=== PATIENT | male | born 1975 | race Caucasian/White ===

== ENCOUNTER 2017-10-23 21:30 | Emergency (ER) | payer OTHER, BC ==
[2017-10-23] MEDS ORDERED: Ketorolac 60 MG/2 ML SDV IM ONE (21:36)
[2017-10-23] MEDS ORDERED: Silver Sulfadiazine 1% Crm 50 GM Tube TOP ONE (21:36)
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
== END 2017-10-23 22:00 | disposition home or self-care (01) ==
LOC: MW.ED 21:30
DX: T24.002A Burn of unspecified degree of unspecified site of left lower limb, except ankle and foot, initial encounter (principal)
CPT/HCPCS: 16020; 96372; 99283; A9270; J1885

== ENCOUNTER 2019-02-17 09:44 | Emergency (ER) | payer BC, OTHER ==
[2019-02-17] MEDS ORDERED: Diphtheria,Pertussis(Acell),Tetanus Vaccine 0.5 ML Syringe IM ONE (10:18)
--- NOTE | 2019-02-17 10:22 | EDM.PDOC ---
ED HPI GENERAL MEDICAL PROBLEM - General Chief Complaint: Skin Complaint Stated Complaint: INFECTION ON ARM Time Seen by Provider: 02/17/19 10:07 Source of Information: Reports: Patient History Limitations: Reports: No Limitations - History of Present Illness INITIAL COMMENTS - FREE TEXT/NARRATIVE: HISTORY AND PHYSICAL: History of present illness: Patient is a 44-year-old male who presents to the emergency room with multiple small sores to his upper extremities and shoulders bilaterally from his cat. Patient states that he has an aggressive cat that scratches him frequently. He has not so much concerned of the smaller ones, rather an area to his right forearm that is red and slightly painful to touch. He denies any drug abuse or IV injections. Patient denies any fever, chills, headache, change in vision, syncope or near syncope. Denies any chest pain, back pain, shortness of breath or cough. Denies any GI or symptoms. Patient has been eating and drinking appropriately. Review of systems: As per history of present illness and below otherwise all systems reviewed and negative. Past medical history: As per history of present illness and as reviewed below otherwise noncontributory. Surgical history: As per history of present illness and as reviewed below otherwise noncontributory. Social history: See social history for further information Family history: As per history of present illness and as reviewed below otherwise noncontributory. Physical exam: General: Well-developed and well-nourished 44-year-old male. Alert and oriented. Nontoxic appearing and in no acute distress. HEENT: Atraumatic, normocephalic, pupils equal and reactive bilaterally, negative for conjunctival pallor or scleral icterus, mucous membranes moist, trachea midline. No drooling or trismus noted. No meningeal signs. No hot potato voice noted. Lungs: Clear to auscultation, breath sounds equal bilaterally, chest nontender. Heart: S1S2, regular rate and rhythm without overt murmur Abdomen: Soft, nondistended, nontender. Skin: Multiple small areas that are red, superficial scratches noted to his forearms and upper back. Palmar sized area of erythema noted to the right proximal forearm does not reach into the antecubital space at this time. Remaining skin is intact, warm, dry. No lesions or rashes noted. Extremities: Atraumatic, moves all extremities per self without difficulty or deficits. Neurovascular unremarkable. Neuro: Awake, alert, oriented. Cranial nerves II through XII unremarkable. Cerebellum unremarkable. Motor and sensory unremarkable throughout. Exam nonfocal. Notes: Discussed with patient the need for close monitoring of the area on his forearm which was outlined with a surgical marker. We will try outpatient therapy. He is agreeable that if the area does not improve or doesn't fact worsen he will return to the emergency room for reevaluation. He is aware that if the area does not improve he may need admission. At this time were agreeable that he can attempt outpatient oral antibiotics. Supportive care measures were reviewed and discussed. Voices understanding and is agreeable to plan of care. Denies any further questions or concerns at this time. Diagnostics: CBC Therapeutics: Tdap Prescription: Augmentin Impression: Cellulitis Cat Scratch Plan: 1. Gently wash the areas 1-2 times daily with mild soap and water. Keep clean and dry. Continue to monitor for signs of improvement. As we discussed Kimberly close attention to the right elbow, if this area gets outside of the marker outlining need to return for reevaluation. 2. Take the antibiotic as prescribed. He may alternate Tylenol and ibuprofen for pain management. 3. Follow-up with your primary caregiver as we discussed. Return to the ED as needed and as discussed. Definitive disposition and diagnosis as appropriate pending reevaluation and review of above. - Related Data Allergies Allergy/AdvReac Type Severity Reaction Status Date / Time No Known Allergies Allergy Verified 10/23/17 21:36 Home Meds: Home Meds Albuterol Sulfate [Proair Hfa] 2 puff INH ASDIRECTED PRN 10/23/17 [History] Melatonin 3 mg PO BEDTIME 10/23/17 [History] Amoxicillin/Clavulanate K [Augmentin 875-125 MG] 1 tab PO BID 10 Days #20 tablet 02/17/19 [Rx] Budesonide/Formoterol [Symbicort 160-4.5 MCG] 02/17/19 [History] Fluticasone/Salmeterol [Advair 100-50] 02/17/19 [History] Past Medical History Respiratory History: Reports: COPD, Other (See Below) Other Respiratory History: on inhaler Musculoskeletal History: Reports: Back Pain, Chronic Other Musculoskeletal History: bulging discs per PT. Sciatic issues Psychiatric History: Reports: PTSD - Infectious Disease History Infectious Disease History: Reports: Chicken Pox - Past Surgical History Respiratory Surgical History: Reports: None Social & Family History - Family History Family Medical History: Noncontributory - Tobacco Use Smoking Status *Q: Former Smoker Used Tobacco, but Quit: Yes Month/Year Tobacco Last Used: 11/2018 - Caffeine Use Caffeine Use: Reports: None - Alcohol Use Days Per Week of Alcohol Use: 7 Number of Drinks Per Day: 14 Total Drinks Per Week: 98 - Recreational Drug Use Recreational Drug Use: No ED ROS GENERAL - Review of Systems Review Of Systems: Comprehensive ROS is negative, except as noted in HPI. ED EXAM, SKIN/RASH Exam: See Below (See dictation) Course - Vital Signs Last Recorded V/S: Last Vital Signs Temp 98.1 F 02/17/19 09:49 Pulse 106 H 02/17/19 09:49 Resp 18 02/17/19 09:49 BP 117/79 02/17/19 09:49 Pulse Ox 97 02/17/19 09:49 - Orders/Labs/Meds Orders: Active Orders 24 hr Category Date Time Status Vaccines to be Administered [RC] PER UNIT ROUTINE Care 02/17/19 10:18 Active Labs: Laboratory Tests 02/17/19 Range/Units 10:37 WBC 10.09 (4.0-11.0) K/uL RBC 4.08 L (4.50-5.90) M/uL Hgb 12.9 L (13.0-17.0) g/dL Hct 37.7 L (38.0-50.0) % MCV 92.4 (80.0-98.0) fL MCH 31.6 (27.0-32.0) pg MCHC 34.2 (31.0-37.0) g/dL RDW Std Deviation 47.9 (28.0-62.0) fl RDW Coeff of Monster 14 (11.0-15.0) % Plt Count 90 L (150-400) K/uL MPV 10.60 (7.40-12.00) fL Neut % (Auto) 75.3 (48.0-80.0) % Lymph % (Auto) 12.3 L (16.0-40.0) % [place] % (Auto) 11.2 (0.0-15.0) % Eos % (Auto) 0.9 (0.0-7.0) % Baso % (Auto) 0.3 (0.0-1.5) % Neut # (Auto) 7.6 H (1.4-5.7) K/uL Lymph # (Auto) 1.2 (0.6-2.4) K/uL [place] # (Auto) 1.1 H (0.0-0.8) K/uL Eos # (Auto) 0.1 (0.0-0.7) K/uL Baso # (Auto) 0.0 (0.0-0.1) K/uL Nucleated RBC % 0.0 /100WBC Nucleated RBCs # 0 K/uL Meds: Medications Discontinued Medications Generic Name Dose Route Start Last Admin Trade Name Freq PRN Reason Stop Dose Admin Diphtheria/Tetanus/Acell Pertussis 0.5 ml 02/17/19 10:18 02/17/19 10:38 Adacel IM 02/17/19 10:19 0.5 ml .ONCE ONE Administration Departure - Departure Time of Disposition: 11:28 Disposition: Home, Self-Care 01 Clinical Impression: Cat scratch Cellulitis Qualifiers: Site of cellulitis: extremity Site of cellulitis of extremity: upper extremity Laterality: right Qualified Code(s): L03.113 - Cellulitis of right upper limb - Discharge Information Prescriptions: Amoxicillin/Clavulanate K [Augmentin 875-125 MG] 1 tab PO BID 10 Days #20 tablet Instructions: Cat-Scratch Disease, Adult Referrals: Elinor Gonsalves NP [Primary Care Provider] - Forms: ED Department Discharge Additional Instructions: The following information is given to patients seen in the emergency department who are being discharged to home. This information is to outline your options for follow-up care. We provide all patients seen in our emergency department with a follow-up referral. The need for follow-up, as well as the timing and circumstances, are variable depending upon the specifics of your emergency department visit. If you don't have a primary care physician on staff, we will provide you with a referral. We always advise you to contact your personal physician following an emergency department visit to inform them of the circumstance of the visit and for follow-up with them and/or the need for any referrals to a consulting specialist. The emergency department will also refer you to a specialist when appropriate. This referral assures that you have the opportunity for follow-up care with a specialist. All of these measure are taken in an effort to provide you with optimal care, which includes your follow-up. Under all circumstances we always encourage you to contact your private physician who remains a resource for coordinating your care. When calling for follow-up care, please make the office aware that this follow-up is from your recent emergency room visit. If for any reason you are refused follow-up, please contact the [facility] Emergency Department at and asked to speak to the emergency department charge nurse. [facility] [address] [place] [address] [facility] [address] [place] [id number] 1. Gently wash the areas 1-2 times daily with mild soap and water. Keep clean and dry. Continue to monitor for signs of improvement. As we discussed pay close attention to the right elbow, if this area gets outside of the marker outlining in the next 24-36 hours you need to return for reevaluation. 2. Take the antibiotic as prescribed. He may alternate Tylenol and ibuprofen for pain management. 3. Follow-up with your primary caregiver as we discussed. Return to the ED as needed and as discussed. Sepsis Event Note - Evaluation Sepsis Screening Result: No Definite Risk - Focused Exam Vital Signs: Vital Signs Temp Pulse Resp BP Pulse Ox 02/17/19 09:49 98.1 F 106 H 18 117/79 97 Date Exam was Performed: 02/17/19 Time Exam was Performed: 11:22 - My Orders Last 24 Hours: My Active Orders 02/17/19 10:18 Vaccines to be Administered [RC] PER UNIT ROUTINE - Assessment/Plan Last 24 Hours: My Active Orders 02/17/19 10:18 Vaccines to be Administered [RC] PER UNIT ROUTINE
== END 2019-02-17 11:36 | disposition home or self-care (01) ==
LOC: MW.ED 09:44
DX: S40.811A Abrasion of right upper arm, initial encounter (principal); L03.113 Cellulitis of right upper limb; Z87.891 Personal history of nicotine dependence; Z23 Encounter for immunization; W55.03XA Scratched by cat, initial encounter
CPT/HCPCS: 36415; 85025; 90471; 90715; 99283

== ENCOUNTER 2019-09-07 13:35 | Emergency (ER) | payer OTHER ==
--- NOTE | 2019-09-07 13:55 | EDM.PDOC ---
ED [facility] GENERAL MEDICAL PROBLEM - General Chief Complaint: Genitourinary Problem Stated Complaint: BLEEDING FROM PENIS Time Seen by Provider: 09/07/19 13:39 - History of Present Illness INITIAL COMMENTS - FREE TEXT/NARRATIVE: HISTORY AND PHYSICAL: History of present illness: This 44-year-old male with a past medical history of liver cirrhosis, alcoholism, gastric ulcer and hypertension presents emergency department complaining of a small amount of blood running down his leg from his urethral meatus. He states that he is in a monogamous sexual relationship with his fiance who is accompanying him to the emergency department today but is not present for the exam. He states he does not have any dysuria, fevers, or other symptoms. He does appear slightly jaundiced. He is not sure the results of his last liver lab evaluation. He does not know how bad his liver cirrhosis. He continues to drink at least one 12 pack of beer a day. No testicular pain or swelling. States that he can reproduce some urethral drainage by milking the urethra. Review of systems: A 10-point review of systems, other than pertinent positives and negatives as stated per HPI, is otherwise negative. Past medical history: As per history of present illness and as reviewed below otherwise noncontributory. Surgical history: As per history of present illness and as reviewed below otherwise noncontributory. Social history: No reported history of drug or alcohol abuse. Family history: As per history of present illness and as reviewed below otherwise noncontributory. Physical exam: VITAL SIGNS: Reviewed. GENERAL: Mild jaundice, slight abdominal distention, does not appear to be in acute distress HEAD: No signs of head trauma. EYES: Pupils are equal. Extraocular motions intact. EARS: Hearing grossly intact. MOUTH: Oropharynx is normal. NECK: No adenopathy, no JVD. CHEST: Chest with clear breath sounds bilaterally. No wheezes, rales, or rhonchi. CARDIAC: Regular rate and rhythm. Normal S1 and S2, without murmurs, gallops, or rubs. VASCULAR: Peripheral pulses normal and equal in all extremities. ABDOMEN: Soft, without detectable tenderness. Mild distention without significant ascites. No rebound or guarding, and no masses palpated. MUSCULOSKELETAL: Good range of motion of all major joints. Extremities without clubbing, cyanosis or edema. NEUROLOGIC EXAM: Alert and oriented x 3. No focal sensory or motor deficits. Speech normal. Follows commands. PSYCHIATRIC: Mood normal. SKIN: No rash or lesions. Male exam: Nurse standby present. No urethral discharge, no external lesions, no hernia, no testicular swelling or tenderness Initial Differential Diagnosis & Plan: Gonorrhea /chlamydia, abnormal labs secondary to liver cirrhosis, urethritis from other causes I will obtain screening labs with CBC, complete metabolic panel, PTT, PT, INR, UA, and GC chlamydia. Definitive disposition and diagnosis as appropriate pending reevaluation and review of above. - Related Data Allergies Allergy/AdvReac Type Severity Reaction Status Date / Time No Known Allergies Allergy Verified 09/07/19 13:51 Home Meds: Home Meds Albuterol Sulfate [Proair Hfa] 2 puff INH ASDIRECTED PRN 10/23/17 [History] Melatonin 3 mg PO BEDTIME 10/23/17 [History] Budesonide/Formoterol [Symbicort 160-4.5 MCG] 1 puff INH ASDIRECTED 02/17/19 [History] Fluticasone/Salmeterol [Advair 100-50] 1 puff INH ASDIRECTED 02/17/19 [History] Doxycycline [Vibramycin] 100 mg PO BID 7 Days #14 tab 09/07/19 [Rx] cephALEXin [Keflex] 1,000 mg PO TID 7 Days #42 capsule 09/07/19 [Rx] Past Medical History Respiratory History: Reports: COPD, Other (See Below) Other Respiratory History: on inhaler Musculoskeletal History: Reports: Back Pain, Chronic Other Musculoskeletal History: bulging discs per PT. Sciatic issues Psychiatric History: Reports: PTSD - Infectious Disease History Infectious Disease History: Reports: Chicken Pox - Past Surgical History Respiratory Surgical History: Reports: None Social & Family History - Family History Family Medical History: Noncontributory - Caffeine Use Caffeine Use: Reports: None ED ROS GENERAL - Review of Systems Review Of Systems: See Below (see note) ED EXAM, GI/ABD - Physical Exam Exam: See Below (see note) ED ABDOMINAL/GI PROCEDURES - Ultrasound Ultrasound: Abnormal Pelvis Progress: Procedure: Limited Abdominal Ultrasound for evaluation of ascites Performed and interpreted by me; images recorded and archived Indication: Right upper quadrant/epigastric pain/flank pain Findings: -Bowel identified -Liver identified -Trace to moderate ascites Interpretation: Moderate to trace ascites Signed by Luis E Adkins M.D. Course - Vital Signs Last Recorded V/S: Last Vital Signs Temp 97.1 F 09/07/19 13:48 Pulse 98 09/07/19 13:48 Resp 16 09/07/19 13:48 BP 116/70 09/07/19 13:48 Pulse Ox 96 09/07/19 13:48 - Orders/Labs/Meds Orders: Active Orders 24 hr Category Date Time Status Pulse Oximetry [RC] ASDIRECTED Care 09/07/19 13:47 Active CHLAMYDIA AND GONORRHEA BY TMA Stat Lab 09/07/19 13:49 Ordered Labs: Laboratory Tests 09/07/19 09/07/19 09/07/19 Range/Units 14:18 14:35 14:35 WBC 6.13 (4.0-11.0) K/uL RBC 3.47 L (4.50-5.90) M/uL Hgb 11.3 L (13.0-17.0) g/dL Hct 33.5 L (38.0-50.0) % MCV 96.5 (80.0-98.0) fL MCH 32.6 H (27.0-32.0) pg MCHC 33.7 (31.0-37.0) g/dL RDW Std Deviation 58.9 (28.0-62.0) fl RDW Coeff of Monster 17 H (11.0-15.0) % Plt Count 97 L (150-400) K/uL MPV 9.90 (7.40-12.00) fL Neut % (Auto) 48.0 (48.0-80.0) % Lymph % (Auto) 32.5 (16.0-40.0) % Mercer % (Auto) 13.9 (0.0-15.0) % Eos % (Auto) 4.1 (0.0-7.0) % Baso % (Auto) 1.5 (0.0-1.5) % Neut # (Auto) 3.0 (1.4-5.7) K/uL Lymph # (Auto) 2.0 (0.6-2.4) K/uL Mercer # (Auto) 0.9 H (0.0-0.8) K/uL Eos # (Auto) 0.3 (0.0-0.7) K/uL Baso # (Auto) 0.1 (0.0-0.1) K/uL Nucleated RBC % 0.0 /100WBC Nucleated RBCs # 0 K/uL INR APTT (18.6-31.3) SEC Sodium 139 (136-148) mmol/L Potassium 4.4 (3.5-5.1) mmol/L Chloride 104 (98-107) mmol/L Carbon Dioxide 27.3 (21.0-32.0) mmol/L BUN 4 L (7.0-18.0) mg/dL Creatinine 0.8 (0.8-1.3) mg/dL Est Cr Clr Drug Dosing 129.33 mL/min Estimated GFR (MDRD) > 60.0 ml/min Glucose 112 H (74-106) mg/dL Calcium 7.7 L (8.5-10.1) mg/dL Total Bilirubin 2.6 H (0.2-1.0) mg/dL AST 115 H (15-37) IU/L ALT 54 (14-63) IU/L Alkaline Phosphatase 95 (46-116) U/L Total Protein 8.7 H (6.4-8.2) g/dL Albumin 2.3 L (3.4-5.0) g/dL Globulin 6.4 H (2.6-4.0) g/dL Albumin/Globulin Ratio 0.4 L (0.9-1.6) Urine Color YELLOW Urine Appearance CLEAR Urine pH 6.0 (5.0-8.0) Ur Specific Buckley <= 1.005 (1.001-1.035) Urine Protein NEGATIVE (NEGATIVE) mg/dL Urine Glucose (UA) NEGATIVE (NEGATIVE) mg/dL Urine Ketones NEGATIVE (NEGATIVE) mg/dL Urine Occult Blood MODERATE H (NEGATIVE) Urine Nitrite NEGATIVE (NEGATIVE) Urine Bilirubin NEGATIVE (NEGATIVE) Urine Urobilinogen 0.2 (<2.0) EU/dL Ur Leukocyte Esterase NEGATIVE (NEGATIVE) Urine RBC 4-6 (0-2/HPF) Urine WBC 0-1 (0-5/HPF) Ur Epithelial Cells RARE (NONE-FEW) Amorphous Sediment FEW (NEGATIVE) Urine Bacteria FEW (NEGATIVE) Urine Mucus FEW (NONE-MOD) 15/ Range/Units 14:35 WBC (4.0-11.0) K/uL RBC (4.50-5.90) M/uL Hgb (13.0-17.0) g/dL Hct (38.0-50.0) % MCV (80.0-98.0) fL MCH (27.0-32.0) pg MCHC (31.0-37.0) g/dL RDW Std Deviation (28.0-62.0) fl RDW Coeff of Monster (11.0-15.0) % Plt Count (150-400) K/uL MPV (7.40-12.00) fL Neut % (Auto) (48.0-80.0) % Lymph % (Auto) (16.0-40.0) % Mercer % (Auto) (0.0-15.0) % Eos % (Auto) (0.0-7.0) % Baso % (Auto) (0.0-1.5) % Neut # (Auto) (1.4-5.7) K/uL Lymph # (Auto) (0.6-2.4) K/uL Mercer # (Auto) (0.0-0.8) K/uL Eos # (Auto) (0.0-0.7) K/uL Baso # (Auto) (0.0-0.1) K/uL Nucleated RBC % /100WBC Nucleated RBCs # K/uL INR 1.55 APTT 30.1 (18.6-31.3) SEC Sodium (136-148) mmol/L Potassium (3.5-5.1) mmol/L Chloride (98-107) mmol/L Carbon Dioxide (21.0-32.0) mmol/L BUN (7.0-18.0) mg/dL Creatinine (0.8-1.3) mg/dL Est Cr Clr Drug Dosing mL/min Estimated GFR (MDRD) ml/min Glucose (74-106) mg/dL Calcium (8.5-10.1) mg/dL Total Bilirubin (0.2-1.0) mg/dL AST (15-37) IU/L ALT (14-63) IU/L Alkaline Phosphatase (46-116) U/L Total Protein (6.4-8.2) g/dL Albumin (3.4-5.0) g/dL Globulin (2.6-4.0) g/dL Albumin/Globulin Ratio (0.9-1.6) Urine Color Urine Appearance Urine pH (5.0-8.0) Ur Specific Buckley (1.001-1.035) Urine Protein (NEGATIVE) mg/dL Urine Glucose (UA) (NEGATIVE) mg/dL Urine Ketones (NEGATIVE) mg/dL Urine Occult Blood (NEGATIVE) Urine Nitrite (NEGATIVE) Urine Bilirubin (NEGATIVE) Urine Urobilinogen (<2.0) EU/dL Ur Leukocyte Esterase (NEGATIVE) Urine RBC (0-2/HPF) Urine WBC (0-5/HPF) Ur Epithelial Cells (NONE-FEW) Amorphous Sediment (NEGATIVE) Urine Bacteria (NEGATIVE) Urine Mucus (NONE-MOD) Departure - Departure Time of Disposition: 15:44 Disposition: Home, Self-Care 01 Condition: Good Clinical Impression: UTI, Urinary tract infectious disease, Urethritis - Discharge Information *PRESCRIPTION DRUG MONITORING PROGRAM REVIEWED*: Not Applicable *COPY OF PRESCRIPTION DRUG MONITORING REPORT IN PATIENT SANA: Not Applicable Instructions: Urinary Tract Infection, Adult, [id number] Referrals: Sadi Sampson [employer] [Primary Care Provider] - Forms: ED Department Discharge Additional Instructions: The following information is given to patients seen in the emergency department who are being discharged to home. This information is to outline your options for follow-up care. We provide all patients seen in our emergency department with a follow-up referral. The need for follow-up, as well as the timing and circumstances, are variable depending upon the specifics of your emergency department visit. If you don't have a primary care physician on staff, we will provide you with a referral. We always advise you to contact your personal physician following an emergency department visit to inform them of the circumstance of the visit and for follow-up with them and/or the need for any referrals to a consulting specialist. The emergency department will also refer you to a specialist when appropriate. This referral assures that you have the opportunity for follow-up care with a specialist. All of these measure are taken in an effort to provide you with optimal care, which includes your follow-up. Thank you for coming to the [facility] urgency department for your care today. It was Dr. Adkins's pleasure to take care of you. You have urethritis and hematuria. This can be caused by bacterial infections, sexually transmitted infections, and having abnormal liver function. Your clotting factors are not so significantly out normal range that this should cause hematuria. It is most likely secondary to localized trauma, frequent use, or a bacterial infection. We will give you antibiotics to cover the most common causes. You are low risk for sexually transmitted infection but your test is still pending and should be back within 5 days. Under all circumstances we always encourage you to contact your private physician who remains a resource for coordinating your care. When calling for follow-up care, please make the office aware that this follow-up is from your recent emergency room visit. If for any reason you are refused follow-up, please contact the [facility] Emergency Department at and asked to speak to the emergency department charge nurse. Sepsis Event Note (ED) - Evaluation Sepsis Screening Result: No Definite Risk - Focused Exam Vital Signs: Vital Signs Temp Pulse Resp BP Pulse Ox 09/07/19 13:48 97.1 F 98 16 116/70 96 - My Orders Last 24 Hours: My Active Orders 09/07/19 13:47 Pulse Oximetry [RC] ASDIRECTED 09/07/19 13:49 CHLAMYDIA AND GONORRHEA BY TMA Stat - Assessment/Plan Last 24 Hours: My Active Orders 09/07/19 13:47 Pulse Oximetry [RC] ASDIRECTED 09/07/19 13:49 CHLAMYDIA AND GONORRHEA BY TMA Stat
[2019-09-07 15:17] LABS: BLOOD UREA NITROGEN,BUN 4 mg/dL (7.0-18.0); CARBON DIOXIDE,CO2 27.3 mmol/L (21.0-32.0); CHLORIDE,CL 104 mmol/L (98-107); GLUCOSE RANDOM 112 mg/dL (74-106); POTASSIUM,K 4.4 mmol/L (3.5-5.1); SODIUM,NA 139 mmol/L (136-148)
== END 2019-09-07 15:53 | disposition home or self-care (01) ==
LOC: MW.ED 13:35
DX: N34.2 Other urethritis (principal); J44.9 Chronic obstructive pulmonary disease, unspecified; Z79.899 Other long term (current) drug therapy
CPT/HCPCS: 36415; 80053; 81001; 85025; 85610; 85730; 99284-25

== ENCOUNTER 2019-12-10 04:39 | Emergency (ER) | payer OTHER ==
[2019-12-10] MEDS ORDERED: Sodium Chloride 0.9% 2.5 ML Syringe FLUSH PRN (05:04)
[2019-12-10] MEDS ORDERED: Sodium Chloride 0.9% 10 ML Syringe FLUSH PRN (05:04)
--- NOTE | 2019-12-10 05:29 | EDM.PDOC ---
<JosiahRory bhatt - Last Filed: 12/10/19 06:48> ED HPI GENERAL MEDICAL PROBLEM - General Chief Complaint: Genitourinary Problem Stated Complaint: BLEEDING Time Seen by Provider: 12/10/19 05:00 Source of Information: Reports: Patient - History of Present Illness INITIAL COMMENTS - FREE TEXT/NARRATIVE: HISTORY AND PHYSICAL: History of present illness: This is a 44-year-old gentleman with no significant past medical history who presents ER today secondary to gross hematuria that he noticed when he woke up in the middle the night. Patient ports that he noticed a puddle of blood in his bed when he woke up. Patient was here in the ER on August 2019 with similar presentation. Patient reports he is scheduled for an x-ray of his kidneys and has urological follow-up scheduled shortly thereafter. Patient reports that he goes to the [facility] for his health care. Patient denies any recent fevers, shakes, chills, nausea, vomiting, diarrhea, frequency, urgency. Patient reports no flan k pain or flank discomfort. Patient reports he does have pain in his penis. Patient does drink approximately 12 beers daily which she reports is down from the case a day. Patient's labs in August revealed no evidence of coagulopathy or platelet disorders. Patient denies any easy bleeding or bruising, patient denies any bleeding from his gums when brushing his teeth. Patient has any melena or bright red blood per rectum. Patient denies any trauma. Review of systems: As per history of present illness and below otherwise all systems reviewed and negative. Past medical history: As per history of present illness and as reviewed below otherwise noncontributory. Surgical history: As per history of present illness and as reviewed below otherwise noncontributory. Social history: No reported history of drug or alcohol abuse. Family history: As per history of present illness and as reviewed below otherwise noncontributory. Physical exam: HEENT: Atraumatic, normocephalic, pupils reactive, negative for conjunctival pallor or scleral icterus, mucous membranes moist, throat clear, neck supple, nontender, trachea midline. Lungs: Clear to auscultation, breath sounds equal bilaterally, chest nontender. Heart: S1S2, regular, negative for clicks, rubs, or JVD. Abdomen: Soft, nondistended, nontender. Negative for masses or hepatosplenomegaly. Negative for costovertebral tenderness. Pelvis: Stable nontender. Genitourinary: Patient's meatus was examined with no lesions identified. Inside his penile urethra there appears to be a small amount of dried blood. Patient's testes are nontender. Rectal: Deferred. Extremities: Atraumatic, negative for cords or calf pain. Neurovascular unremarkable. Neuro: Awake, alert, oriented. Cranial nerves II through XII unremarkable. Cerebellum unremarkable. Motor and sensory unremarkable throughout. Exam nonfocal. Skin: Patient with spider hemangiomas on his forehead. Diagnostics: BC, CMP, INR, CT scan of the abdomen pelvis with and without IV contrast to evaluate for renal cell CA/kidney stones Urinalysis Assessment and plan: 44-year-old gentleman who presents to the ER today with gross hematuria of unclear etiology. Patient was seen and evaluated here in August 2019 and was diagnosed with possible urethritis/uti and placed on antibiotics. Patient reports that the antibiotics resolved the hematuria at that time but he does have evaluation with an x-ray and [facility] Szymans[facility]. Patient's presentation today appears to be similar to his prior presentation except he reports this time there is more blood identified. A CT scan of the abdomen pelvis has been ordered to evaluate for kidney stones as well as any evidence of tumors. I have discussed with the patient my concern regarding the possibilities of cancer in the bladder/kidneys, bleeding blood vessels in his bladder, polyps, and other causes that could lead to gross hematuria such as this. I have discussed with the patient the need for him to eventually follow-up with urology in order to get further evaluation with a possible cystoscopy by urologist. Patient's urine reveals pink-colored urine with no clots identified. There is a significant mount of blood but very few WBCs/bacteria in his UA. Although the patient's urinalysis does not reveal evidence that would be highly suggestive of urinary tract infection, given the degree of hematuria we will treat him empirically with antibiotics for UTI/cystitis until he is able to see his urologist.. 7 AM: CT report pending at this time. Given the degree of hematuria I have discussed with the patient that he will be treated empirically for urinary tract infection with Levaquin 500 mg daily for [address] scan signed out to Dr Lewis and pending no significant pathology on the CT plan will resume as discussed with patient. Definitive disposition and diagnosis as appropriate pending reevaluation and review of above. - Related Data Allergies Allergy/AdvReac Type Severity Reaction Status Date / Time No Known Allergies Allergy Verified 12/10/19 04:47 Home Meds: Home Meds Albuterol Sulfate [Proair Hfa] 2 puff INH ASDIRECTED PRN 10/23/17 [History] Melatonin 3 mg PO BEDTIME 10/23/17 [History] Budesonide/Formoterol [Symbicort 160-4.5 MCG] 1 puff INH ASDIRECTED 02/17/19 [History] Fluticasone/Salmeterol [Advair 100-50] 1 puff INH ASDIRECTED 02/17/19 [History] Levofloxacin [Levaquin] 500 mg PO DAILY #10 tablet 12/10/19 [Rx] Past Medical History HEENT History: Reports: None Cardiovascular History: Reports: None Respiratory History: Reports: COPD, Other (See Below) Other Respiratory History: on inhaler Gastrointestinal History: Reports: Cirrhosis, Jaundice Musculoskeletal History: Reports: Back Pain, Chronic Other Musculoskeletal History: bulging discs per PT. Sciatic issues Psychiatric History: Reports: PTSD Endocrine/Metabolic History: Reports: None Hematologic History: Reports: None Immunologic History: Reports: None - Infectious Disease History Infectious Disease History: Reports: None - Past Surgical History Respiratory Surgical History: Reports: None Other GI Surgeries/Procedures: hx ulcer Social & Family History - Family History Family Medical History: Noncontributory - Tobacco Use Tobacco Use Status *Q: Current Every Day Tobacco User Years of Tobacco use: 20 Packs/Tins Daily: 1 - Caffeine Use Caffeine Use: Reports: None - Recreational Drug Use Recreational Drug Use: No ED ROS GENERAL - Review of Systems Review Of Systems: See Below ED EXAM, GENERAL - Physical Exam Exam: See Below Departure - Departure Disposition: Home, Self-Care 01 Condition: Good Clinical Impression: Gross hematuria, Urinary tract infection - Discharge Information Prescriptions: Levofloxacin [Levaquin] 500 mg PO DAILY #10 tablet Instructions: Urinary Tract Infection, Adult, [id number], Antibiotic Medicine, Adult, Hematuria, Adult Referrals: PCP,None [Primary Care Provider] - Forms: ED Department Discharge Additional Instructions: The etiology of your hematuria is not completely clear. Given the amount of blood in your urine, you will be treated empirically with an antibiotic for a urinary tract infection until you are able to see your urologist for definitive diagnosis. You will be sent home on a prescription for Levaquin 500 mg daily for 10 days. The following information is given to patients seen in the emergency department who are being discharged to home. This information is to outline your options for follow-up care. We provide all patients seen in our emergency department with a follow-up referral. The need for follow-up, as well as the timing and circumstances, are variable depending upon the specifics of your emergency department visit. If you don't have a primary care physician on staff, we will provide you with a referral. We always advise you to contact your personal physician following an emergency department visit to inform them of the circumstance of the visit and for follow-up with them and/or the need for any referrals to a consulting specialist. The emergency department will also refer you to a specialist when appropriate. This referral assures that you have the opportunity for follow-up care with a specialist. All of these measure are taken in an effort to provide you with optimal care, which includes your follow-up. Under all circumstances we always encourage you to contact your private physician who remains a resource for coordinating your care. When calling for follow-up care, please make the office aware that this follow-up is from your recent emergency room visit. If for any reason you are refused follow-up, please contact the [facility] Emergency Department at and asked to speak to the emergency department charge nurse. Sepsis Event Note (ED) - Evaluation Sepsis Screening Result: No Definite Risk <Alfredo Lewis - Last Filed: 12/10/19 07:39> Course - Vital Signs Last Recorded V/S: Last Vital Signs Temp 35.9 C L 12/10/19 07:34 Pulse 95 12/10/19 07:34 Resp 16 12/10/19 07:34 BP 116/74 12/10/19 07:34 Pulse Ox 96 12/10/19 07:34 - Orders/Labs/Meds Orders: Active Orders 24 hr Category Date Time Status Sodium Chloride 0.9% [Saline Flush] Med 12/10/19 05:04 Active 10 ml FLUSH ASDIRECTED PRN Sodium Chloride 0.9% [Saline Flush] Med 12/10/19 05:04 Active 2.5 ml FLUSH ASDIRECTED PRN Saline Lock Insert [OM.PC] Stat Oth 12/10/19 05:04 Ordered Medication Orders Sodium Chloride (Saline Flush) 10 ml FLUSH ASDIRECTED PRN PRN Reason: Keep Vein Open Sodium Chloride (Saline Flush) 2.5 ml FLUSH ASDIRECTED PRN PRN Reason: Keep Vein Open Labs: Laboratory Tests 12/10/19 12/10/19 12/10/19 Range/Units 04:59 05:15 05:15 WBC 3.56 L (4.0-11.0) K/uL RBC 3.86 L (4.50-5.90) M/uL Hgb 12.0 L (13.0-17.0) g/dL Hct 34.8 L (38.0-50.0) % MCV 90.2 (80.0-98.0) fL MCH 31.1 (27.0-32.0) pg MCHC 34.5 (31.0-37.0) g/dL RDW Std Deviation 53.3 (28.0-62.0) fl RDW Coeff of Monster 16 H (11.0-15.0) % Plt Count 42 L (150-400) K/uL MPV 10.60 (7.40-12.00) fL Neut % (Auto) 40.5 L (48.0-80.0) % Lymph % (Auto) 47.2 H (16.0-40.0) % Marion % (Auto) 11.2 (0.0-15.0) % Eos % (Auto) 0.8 (0.0-7.0) % Baso % (Auto) 0.3 (0.0-1.5) % Neut # (Auto) 1.4 (1.4-5.7) K/uL Lymph # (Auto) 1.7 (0.6-2.4) K/uL Marion # (Auto) 0.4 (0.0-0.8) K/uL Eos # (Auto) 0.0 (0.0-0.7) K/uL Baso # (Auto) 0.0 (0.0-0.1) K/uL Nucleated RBC % 0.0 /100WBC Nucleated RBCs # 0 K/uL INR Sodium 132 L (136-148) mmol/L Potassium 3.3 L (3.5-5.1) mmol/L Chloride 99 (98-107) mmol/L Carbon Dioxide 23.2 (21.0-32.0) mmol/L BUN 6 L (7.0-18.0) mg/dL Creatinine 0.9 (0.8-1.3) mg/dL Est Cr Clr Drug Dosing 111.56 mL/min Estimated GFR (MDRD) > 60.0 ml/min Glucose 130 H (74-106) mg/dL Calcium 7.3 L (8.5-10.1) mg/dL Total Bilirubin 3.5 H (0.2-1.0) mg/dL AST 160 H (15-37) IU/L ALT 52 (14-63) IU/L Alkaline Phosphatase 103 (46-116) U/L Total Protein 8.4 H (6.4-8.2) g/dL Albumin 2.3 L (3.4-5.0) g/dL Globulin 6.1 H (2.6-4.0) g/dL Albumin/Globulin Ratio 0.4 L (0.9-1.6) Urine Color PINK Urine Appearance SLT CLOUDY Urine pH 6.5 (5.0-8.0) Ur Specific [place] <= 1.005 (1.001-1.035) Urine Protein NEGATIVE (NEGATIVE) mg/dL Urine Glucose (UA) NEGATIVE (NEGATIVE) mg/dL Urine Ketones NEGATIVE (NEGATIVE) mg/dL Urine Occult Blood LARGE H (NEGATIVE) Urine Nitrite NEGATIVE (NEGATIVE) Urine Bilirubin NEGATIVE (NEGATIVE) Urine Urobilinogen 0.2 (<2.0) EU/dL Ur Leukocyte Esterase TRACE H (NEGATIVE) Urine RBC 20-30 (0-2/HPF) Urine WBC 0-3 (0-5/HPF) Ur Epithelial Cells RARE (NONE-FEW) Urine Bacteria RARE (NEGATIVE) 12/10/19 Range/Units 05:15 WBC (4.0-11.0) K/uL RBC (4.50-5.90) M/uL Hgb (13.0-17.0) g/dL Hct (38.0-50.0) % MCV (80.0-98.0) fL MCH (27.0-32.0) pg MCHC (31.0-37.0) g/dL RDW Std Deviation (28.0-62.0) fl RDW Coeff of Monster (11.0-15.0) % Plt Count (150-400) K/uL MPV (7.40-12.00) fL Neut % (Auto) (48.0-80.0) % Lymph % (Auto) (16.0-40.0) % Marion % (Auto) (0.0-15.0) % Eos % (Auto) (0.0-7.0) % Baso % (Auto) (0.0-1.5) % Neut # (Auto) (1.4-5.7) K/uL Lymph # (Auto) (0.6-2.4) K/uL Marion # (Auto) (0.0-0.8) K/uL Eos # (Auto) (0.0-0.7) K/uL Baso # (Auto) (0.0-0.1) K/uL Nucleated RBC % /100WBC Nucleated RBCs # K/uL INR 1.71 Sodium (136-148) mmol/L Potassium (3.5-5.1) mmol/L Chloride (98-107) mmol/L Carbon Dioxide (21.0-32.0) mmol/L BUN (7.0-18.0) mg/dL Creatinine (0.8-1.3) mg/dL Est Cr Clr Drug Dosing mL/min Estimated GFR (MDRD) ml/min Glucose (74-106) mg/dL Calcium (8.5-10.1) mg/dL Total Bilirubin (0.2-1.0) mg/dL AST (15-37) IU/L ALT (14-63) IU/L Alkaline Phosphatase (46-116) U/L Total Protein (6.4-8.2) g/dL Albumin (3.4-5.0) g/dL Globulin (2.6-4.0) g/dL Albumin/Globulin Ratio (0.9-1.6) Urine Color Urine Appearance Urine pH (5.0-8.0) Ur Specific [place] (1.001-1.035) Urine Protein (NEGATIVE) mg/dL Urine Glucose (UA) (NEGATIVE) mg/dL Urine Ketones (NEGATIVE) mg/dL Urine Occult Blood (NEGATIVE) Urine Nitrite (NEGATIVE) Urine Bilirubin (NEGATIVE) Urine Urobilinogen (<2.0) EU/dL Ur Leukocyte Esterase (NEGATIVE) Urine RBC (0-2/HPF) Urine WBC (0-5/HPF) Ur Epithelial Cells (NONE-FEW) Urine Bacteria (NEGATIVE) Meds: Medications Generic Name Dose Route Start Last Admin Trade Name Freq PRN Reason Stop Dose Admin Sodium Chloride 10 ml 12/10/19 05:04 Saline Flush FLUSH ASDIRECTED PRN Keep Vein Open Sodium Chloride 2.5 ml 12/10/19 05:04 Saline Flush FLUSH ASDIRECTED PRN Keep Vein Open Discontinued Medications Generic Name Dose Route Start Last Admin Trade Name Freq PRN Reason Stop Dose Admin Iopamidol 100 ml 12/10/19 06:34 12/10/19 06:34 Isovue-370 (76%) IVPUSH 12/10/19 06:35 100 ml ONETIME STA Administration Departure - Departure Time of Disposition: 07:38 - Discharge Information *PRESCRIPTION DRUG MONITORING PROGRAM REVIEWED*: Not Applicable *COPY OF PRESCRIPTION DRUG MONITORING REPORT IN PATIENT SANA: Not Applicable Sepsis Event Note (ED) - Focused Exam Vital Signs: Vital Signs Temp Pulse Resp BP Pulse Ox 12/10/19 07:34 35.9 C L 95 16 116/74 96 12/10/19 06:30 96 128/87 96 12/10/19 04:48 36.0 C L 110 H 16 129/82 96
[2019-12-10 05:44] LABS: BLOOD UREA NITROGEN,BUN 6 mg/dL (7.0-18.0); CARBON DIOXIDE,CO2 23.2 mmol/L (21.0-32.0); CHLORIDE,CL 99 mmol/L (98-107); GLUCOSE RANDOM 130 mg/dL (74-106); POTASSIUM,K 3.3 mmol/L (3.5-5.1); SODIUM,NA 132 mmol/L (136-148)
[2019-12-10] MEDS ORDERED: Iopamidol 755 Mg/ML 100 ML Bottle IVPUSH STA (06:34)
--- NOTE | 2019-12-10 07:31 | CT ---
INDICATION: Hematuria. TECHNIQUE: CT scan of the abdomen and pelvis with noncontrast followed by post contrast images. 100 cc of Isovue-370 given intravenously. This study was not performed as a CT urogram. FINDINGS: The lung bases show an airspace opacity in the posterior aspect of the left lower lobe. Mild nodularity of the liver likely representing cirrhosis. No focal abnormalities identified in the visualized portions of the liver, spleen, pancreas, and adrenal glands. Small gallstones in an otherwise normal-appearing gallbladder. No bile duct dilation. Normal appearance of the kidneys. No hydronephrosis. No uroliths. Recanalization of the umbilical veins. Esophageal varices. Bowel wall thickening involving the ascending colon. The remainder of the GI tract is incompletely distended but shows no gross abnormalities. No retroperitoneal, pelvic sidewall, or mesenteric adenopathy. Trace amount of ascites. IMPRESSION: 1. No abnormalities of the kidneys identified. No hydronephrosis. No uroliths. 2. Airspace opacity in the posterior aspect of the left lower lobe may represent a pneumonia. 3. Cirrhosis. 4. Portosystemic shunt formation. 5. Bowel wall thickening involving the ascending colon is likely secondary to the cirrhosis. Please note that all CT scans at this facility use dose modulation, iterative reconstruction, and/or weight-based dosing when appropriate to reduce radiation dose to as low as reasonably achievable. Dictated by Shahid Givens MD @ Dec 10 2019 7:22AM Signed by Dr. Shahid Givens @ Dec 10 2019 7:29AM
== END 2019-12-10 07:45 | disposition home or self-care (01) ==
LOC: MW.ED 04:39
DX: N39.0 Urinary tract infection, site not specified (principal); R31.0 Gross hematuria; J44.9 Chronic obstructive pulmonary disease, unspecified; F17.210 Nicotine dependence, cigarettes, uncomplicated
CPT/HCPCS: 36415; 74178; 80053; 81001; 85025; 85610; 99284; Q9967; 99283

== ENCOUNTER 2020-01-13 02:10 | Emergency (ER) | payer OTHER ==
--- NOTE | 2020-01-13 02:12 | EDM.PDOC ---
ED HPI GENERAL MEDICAL PROBLEM - General Stated Complaint: BLOOD IN URINE Time Seen by Provider: 01/13/20 02:11 Source of Information: Reports: Patient History Limitations: Reports: No Limitations - History of Present Illness INITIAL COMMENTS - FREE TEXT/NARRATIVE: 44-year-old male with history of cirrhosis presents with gross hematuria. Since last night he had 4 depends completely soaked in blood, states he's dripping out blood from his penis. His last alcohol consumption was at 10 PM. He drinks 8 drinks a day. He is trying to cut down on alcohol use. He also notes abdominal distention for 1 day. Patient denies fever, chills, headache, chest pain, shortness of breath, rectal bleed, bleeding gums, abdominal pain, focal numbness or weakness. Patient was seen here for gross hematuria on 12/09, he was referred to urology, he followed up with urology, patient states that the urologist checked his kidney and bladder, both of which were unremarkable. 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 He has an appointment in February at [place]. ROS: A 10-point review of systems, other than pertinent positives and negatives as stated per HPI, is otherwise negative Past medical history: No additional pertinent history Past Surgical history: No additional pertinent history Social history: No additional pertinent history Family history: No additional pertinent history PHYSICAL EXAM General: AOx4, GCS = 15, No distress HEENT: dry mucous membrane skin: jaundice, ecchymosis to bilateral upper extremity and right upper abdomen Neck: supple, no meningismus, no Kernig or Brudzinski Cardiac: S1S2 tachycardia Respiratory: CTAB, no crackles or rales, no wheezing Abdomen: Soft, nontender, no rebound or guarding, distended, positive fluid waves, no pulsatile mass. Back: nontender Musculoskeletal: NVI distally, no deformity Neuro: No focal deficits, CN 2 - 12 WNL. No asterixis. abdominal Pain Score (Numeric/FACES): 6 - Related Data Allergies Allergy/AdvReac Type Severity Reaction Status Date / Time No Known Allergies Allergy Verified 01/13/20 02:28 Home Meds: Home Meds Albuterol Sulfate [Proair Hfa] 2 puff INH ASDIRECTED PRN 10/23/17 [History] Melatonin 3 mg PO BEDTIME 10/23/17 [History] Budesonide/Formoterol [Symbicort 160-4.5 MCG] 1 puff INH ASDIRECTED 02/17/19 [History] Fluticasone/Salmeterol [Advair 100-50] 1 puff INH ASDIRECTED 02/17/19 [History] Past Medical History HEENT History: Reports: None Cardiovascular History: Reports: None Respiratory History: Reports: COPD, Other (See Below) Other Respiratory History: on inhaler Gastrointestinal History: Reports: Cirrhosis, Jaundice Musculoskeletal History: Reports: Back Pain, Chronic Other Musculoskeletal History: bulging discs per PT. Sciatic issues Psychiatric History: Reports: PTSD Endocrine/Metabolic History: Reports: None Hematologic History: Reports: None Immunologic History: Reports: None - Infectious Disease History Infectious Disease History: Reports: None - Past Surgical History Respiratory Surgical History: Reports: None Other GI Surgeries/Procedures: hx ulcer Social & Family History - Family History Family Medical History: No Pertinent Family History - Caffeine Use Caffeine Use: Reports: None ED ROS GENERAL - Review of Systems Review Of Systems: See Below (see dictation) ED EXAM, GENERAL - Physical Exam Exam: See Below (see dictation) Exam Limited By: No Limitations ED GENERAL MEDICAL PROCEDURES - Additional/Other Procedure(s) Other (Free Text) Procedure(s): FAST Abdominal Ultrasound Indication: Evaluation for intra-abdominal free fluid Technique: Right upper quadrant (hepatorenal), Left upper quadrant (splenorenal) and pelvic views were obtained Findings: moderate intra-abdominal free fluid Impression: Ascites Performed and interpreted at the time of patient care, scan image(s) archived. Certified by Hector Short MD Course - Vital Signs Last Recorded V/S: Last Vital Signs Temp 97.2 F 01/13/20 04:56 Pulse 95 01/13/20 04:56 Resp 20 01/13/20 04:56 BP 107/54 L 01/13/20 04:56 Pulse Ox 97 01/13/20 04:56 - Orders/Labs/Meds Orders: Active Orders 24 hr Category Date Time Status Abdomen Pelvis w Cont [CT] Stat Exams 01/13/20 03:58 Ordered AMMONIA VENOUS [CHEM] Stat Lab 01/13/20 05:15 Ordered Sodium Chloride 0.9% [Normal Saline] 1,000 ml Med 01/13/20 02:45 Active IV .BOLUS Medication Orders Sodium Chloride (Normal Saline) 1,000 mls @ 999 mls/hr IV .BOLUS JANA Labs: Laboratory Tests 01/13/20 01/13/20 01/13/20 Range/Units 02:30 02:30 02:40 WBC 7.56 (4.0-11.0) K/uL RBC 2.61 L (4.50-5.90) M/uL Hgb 8.6 L (13.0-17.0) g/dL Hct 24.3 L (38.0-50.0) % MCV 93.1 (80.0-98.0) fL MCH 33.0 H (27.0-32.0) pg MCHC 35.4 (31.0-37.0) g/dL RDW Std Deviation 56.4 (28.0-62.0) fl RDW Coeff of Monster 17 H (11.0-15.0) % Plt Count 65 L (150-400) K/uL MPV 10.80 (7.40-12.00) fL Neut % (Auto) 58.2 (48.0-80.0) % Lymph % (Auto) 20.1 (16.0-40.0) % [place] % (Auto) 19.2 H (0.0-15.0) % Eos % (Auto) 2.1 (0.0-7.0) % Baso % (Auto) 0.4 (0.0-1.5) % Neut # (Auto) 4.4 (1.4-5.7) K/uL Lymph # (Auto) 1.5 (0.6-2.4) K/uL [place] # (Auto) 1.5 H (0.0-0.8) K/uL Eos # (Auto) 0.2 (0.0-0.7) K/uL Baso # (Auto) 0.0 (0.0-0.1) K/uL Nucleated RBC % 0.0 /100WBC Nucleated RBCs # 0 K/uL INR Sodium 117 L* (136-148) mmol/L Potassium 4.5 (3.5-5.1) mmol/L Chloride 86 L (98-107) mmol/L Carbon Dioxide 21.1 (21.0-32.0) mmol/L BUN 9 (7.0-18.0) mg/dL Creatinine 0.7 L (0.8-1.3) mg/dL Est Cr Clr Drug Dosing 143.43 mL/min Estimated GFR (MDRD) > 60.0 ml/min Glucose 126 H (74-106) mg/dL Calcium 7.2 L (8.5-10.1) mg/dL Phosphorus (2.6-4.7) mg/dL Magnesium (1.8-2.4) mg/dL Total Bilirubin 10.0 H (0.2-1.0) mg/dL AST 179 H (15-37) IU/L ALT 68 H (14-63) IU/L Alkaline Phosphatase 99 (46-116) U/L Total Protein 8.1 (6.4-8.2) g/dL Albumin 1.7 L (3.4-5.0) g/dL Globulin 6.4 H (2.6-4.0) g/dL Albumin/Globulin Ratio 0.3 L (0.9-1.6) Urine Color RED Urine Appearance CLOUDY Urine pH 6.0 (5.0-8.0) Ur Specific [place] 1.025 (1.001-1.035) Urine Protein TRACE H (NEGATIVE) mg/dL Urine Glucose (UA) NEGATIVE (NEGATIVE) mg/dL Urine Ketones 15 H (NEGATIVE) mg/dL Urine Occult Blood LARGE H (NEGATIVE) Urine Nitrite POSITIVE H (NEGATIVE) Urine Bilirubin LARGE H (NEGATIVE) Urine Ictotest POSITIVE Urine Urobilinogen 4.0 H (<2.0) EU/dL Ur Leukocyte Esterase TRACE H (NEGATIVE) Urine RBC TOO NUMEROUS TO CT (0-2/HPF) Urine WBC 1-3 (0-5/HPF) Ur Epithelial Cells RARE (NONE-FEW) Urine Bacteria RARE (NEGATIVE) Urinalysis Comment Acetaminophen ug/mL Ethyl Alcohol mg/dL SARS-CoV-2 RNA (HERNESTO) (NEGATIVE) 01/13/20 01/13/20 01/13/20 Range/Units 03:33 03:33 03:35 WBC (4.0-11.0) K/uL RBC (4.50-5.90) M/uL Hgb (13.0-17.0) g/dL Hct (38.0-50.0) % MCV (80.0-98.0) fL MCH (27.0-32.0) pg MCHC (31.0-37.0) g/dL RDW Std Deviation (28.0-62.0) fl RDW Coeff of Monster (11.0-15.0) % Plt Count (150-400) K/uL MPV (7.40-12.00) fL Neut % (Auto) (48.0-80.0) % Lymph % (Auto) (16.0-40.0) % [place] % (Auto) (0.0-15.0) % Eos % (Auto) (0.0-7.0) % Baso % (Auto) (0.0-1.5) % Neut # (Auto) (1.4-5.7) K/uL Lymph # (Auto) (0.6-2.4) K/uL [place] # (Auto) (0.0-0.8) K/uL Eos # (Auto) (0.0-0.7) K/uL Baso # (Auto) (0.0-0.1) K/uL Nucleated RBC % /100WBC Nucleated RBCs # K/uL INR 2.39 Sodium (136-148) mmol/L Potassium (3.5-5.1) mmol/L Chloride (98-107) mmol/L Carbon Dioxide (21.0-32.0) mmol/L BUN (7.0-18.0) mg/dL Creatinine (0.8-1.3) mg/dL Est Cr Clr Drug Dosing mL/min Estimated GFR (MDRD) ml/min Glucose (74-106) mg/dL Calcium (8.5-10.1) mg/dL Phosphorus 2.5 L (2.6-4.7) mg/dL Magnesium 1.9 (1.8-2.4) mg/dL Total Bilirubin (0.2-1.0) mg/dL AST (15-37) IU/L ALT (14-63) IU/L Alkaline Phosphatase (46-116) U/L Total Protein (6.4-8.2) g/dL Albumin (3.4-5.0) g/dL Globulin (2.6-4.0) g/dL Albumin/Globulin Ratio (0.9-1.6) Urine Color Urine Appearance Urine pH (5.0-8.0) Ur Specific [place] (1.001-1.035) Urine Protein (NEGATIVE) mg/dL Urine Glucose (UA) (NEGATIVE) mg/dL Urine Ketones (NEGATIVE) mg/dL Urine Occult Blood (NEGATIVE) Urine Nitrite (NEGATIVE) Urine Bilirubin (NEGATIVE) Urine Ictotest Urine Urobilinogen (<2.0) EU/dL Ur Leukocyte Esterase (NEGATIVE) Urine RBC (0-2/HPF) Urine WBC (0-5/HPF) Ur Epithelial Cells (NONE-FEW) Urine Bacteria (NEGATIVE) Urinalysis Comment Acetaminophen <2.0 ug/mL Ethyl Alcohol 217 mg/dL SARS-CoV-2 RNA (HERNESTO) POSITIVE H (NEGATIVE) Meds: Medications Generic Name Dose Route Start Last Admin Trade Name Freq PRN Reason Stop Dose Admin Sodium Chloride 1,000 mls @ 999 mls/hr 01/13/20 02:45 Normal Saline IV .BOLUS JANA Discontinued Medications Generic Name Dose Route Start Last Admin Trade Name Freq PRN Reason Stop Dose Admin Ceftriaxone Sodium 1 gm 01/13/20 04:26 01/13/20 04:49 Rocephin IVPUSH 01/13/20 04:27 Not Given ONETIME ONE Sodium Chloride 1,000 mls @ 999 mls/hr 01/13/20 02:50 01/13/20 02:56 Normal Saline IV 01/13/20 03:50 999 mls/hr NOW STA Administration Ceftriaxone Sodium/Dextrose 1 50 mls @ 100 mls/hr 01/13/20 04:38 01/13/20 04:54 gm/ Premix IV 01/13/20 05:07 100 mls/hr ONETIME ONE Administration Iopamidol 100 ml 01/13/20 04:56 01/13/20 04:57 Isovue Multipack-370 (76%) IVPUSH 01/13/20 04:57 100 ml ONETIME STA Administration - Re-Assessments/Exams Free Text/Narrative Re-Assessment/Exam: 01/13/20 0447: Patient will require transfer to outside facility due to no beds here, and the need for outside sales consultant services unavailable at this facility. Any emergency conditions have been stabilized to the ability of the ED prior to the transfer. [facility] is capacity and on diversion, [facility] has no Covid beds. [facility] has no COVID beds now. [facility] on diversion. 01/13/20 05:11: discussed with [facility] - Dr. Artur Rosenberg will accept transfer to their ER. MEDICAL DECISION MAKING: I reviewed the patients past medical records, lab and radiographic findings. I discussed the case with the patient. My differential diagnosis included: Liver failure, cirrhosis, ascites. His abdomen is nontender, I do not suspect spontaneous bacterial peritonitis. Patient was seen here on 12/09 for gross hematuria. At that time his tbili = 3.5, AST = 160. today his tbili is 10, AST 179. He subsequently followed up with urology after his last ER visit. His hemoglobin = 8.6 today, dropped from 12 on 12/09. He denies rectal bleeding. He did demonstrate gross hematuria, CBI was performed and cleared his hematuria. COVID is positive. Departure - Departure Time of Disposition: 04:43 Disposition: DC/Tfer to Other 70 Condition: Fair Clinical Impression: Gross hematuria, Transaminitis, Anemia, Hyponatremia, COVID-19, UTI (urinary tract infection), Alcoholic cirrhosis of liver with ascites - Discharge Information *PRESCRIPTION DRUG MONITORING PROGRAM REVIEWED*: Not Applicable *COPY OF PRESCRIPTION DRUG MONITORING REPORT IN PATIENT SANA: Not Applicable Instructions: COVID-19 Frequently Asked Questions Referrals: [facility] [Primary Care Provider[facility] - Critical Care Note - Critical Care Note Total Time (mins): 40 Comments: CRITCAL CARE: The high probability of sudden, clinically significant deterioration in the patient's condition required the highest level of my preparedness to intervene urgently. The services I provided to this patient were to treat and/or prevent clinically significant deterioration. Services included the following: chart data review, reviewing nursing notes and/or old charts, documentation time, outside sales consultant collaboration regarding findings and treatment options, medication orders and management, direct patient care, vital sign assessments and ordering, interpreting and reviewing diagnostic studies/lab tests. Aggregate critical care time includes only time during which I was engaged in work directly related to the patient's care, as described above, whether at the bedside or elsewhere in the Emergency Department. It did not include time spent performing other reported procedures or the services of residents, students, nurses or physician assistants. Frequent interventions and/or frequent repeat evaluations were required as well as counseling and coordination of care regarding prognosis, treatments, and discussions with patient, staff and consultants. Critical Care (excluding other procedures): 40 minutes Sepsis Event Note (ED) - Focused Exam Vital Signs: Vital Signs Temp Pulse Resp BP Pulse Ox 01/13/20 04:56 97.2 F 95 20 107/54 L 97 01/13/20 03:26 94 20 104/76 97 01/13/20 02:25 97.1 F 113 H 16 125/75 97 - My Orders Last 24 Hours: My Active Orders 01/13/20 02:45 Sodium Chloride 0.9% [Normal Saline] 1,000 ml IV .BOLUS 01/13/20 03:58 Abdomen Pelvis w Cont [CT] Stat 01/13/20 05:15 AMMONIA VENOUS [CHEM] Stat - Assessment/Plan Last 24 Hours: My Active Orders 01/13/20 02:45 Sodium Chloride 0.9% [Normal Saline] 1,000 ml IV .BOLUS 01/13/20 03:58 Abdomen Pelvis w Cont [CT] Stat 01/13/20 05:15 AMMONIA VENOUS [CHEM] Stat
[2020-01-13] MEDS ORDERED: Sodium Chloride 0.9% 1,000 ML IV SCH (02:45)
[2020-01-13] MEDS ORDERED: Sodium Chloride 0.9% 1,000 ML IV STA (02:50)
[2020-01-13 03:21] LABS: BLOOD UREA NITROGEN,BUN 9 mg/dL (7.0-18.0); CARBON DIOXIDE,CO2 21.1 mmol/L (21.0-32.0); CHLORIDE,CL 86 mmol/L (98-107); GLUCOSE RANDOM 126 mg/dL (74-106); POTASSIUM,K 4.5 mmol/L (3.5-5.1)
[2020-01-13 03:24] LABS: SODIUM,NA 117 mmol/L (136-148)
[2020-01-13 04:15] LABS: ACETAMINOPHEN <2.0 ug/mL
[2020-01-13] MEDS ORDERED: cefTRIAXone 1 GM Vial IVPUSH ONE (04:26)
[2020-01-13] MEDS ORDERED: cefTRIAXone 1 GM in Premix Bag 1 BAG IV ONE (04:38)
[2020-01-13] MEDS ORDERED: Iopamidol 755 MG/ML 500 ML Multipack Bottle IVPUSH STA (04:56)
--- NOTE | 2020-01-13 06:00 | CT ---
INDICATION: Abdominal distension. TECHNIQUE: CT abdomen and pelvis acquired with 100 cc Isovue 370 IV contrast. COMPARISON: December 10, 2019. FINDINGS: Lower chest: Unremarkable. Liver: Cirrhotic liver without focal lesion. Gallbladder and bile ducts: Unchanged cholelithiasis with moderate gallbladder distention. No biliary dilatation. Pancreas: Unremarkable. No mass or inflammation. Spleen: Mildly enlarged measuring 14 cm in greatest dimension. Adrenal glands: Unremarkable. No nodules. Kidneys: Unremarkable. No masses, stones, or hydronephrosis. GI tract: Unremarkable. Normal in caliber. No sign of mass or inflammation. Vasculature: Moderate upper abdominal varices. Abdominal aorta is normal in caliber. Mesenteric arteries are patent. Lymph nodes: No lymphadenopathy. Omentum/Peritoneum/Abdominal Wall: Moderate to large amount of ascites has increased since the prior exam. No free air. Pelvis: Delacruz catheter is within a decompressed bladder. Bones: Unremarkable for age. IMPRESSION: Liver cirrhosis with evidence of portal venous hypertension including a moderate to large amount of ascites which has increased since the prior exam. No other acute findings or significant changes from the prior exam. Please note that all CT scans at this facility use dose modulation, iterative reconstruction, and/or weight-based dosing when appropriate to reduce radiation dose to as low as reasonably achievable. Dictated by Marek Jacobs MD @ Jan 13 2020 5:51AM Signed by Dr. Marek Jacobs @ Jan 13 2020 5:57AM
== END 2020-01-13 06:30 | disposition other institution (70) ==
LOC: MW.ED 02:10
DX: U07.1 COVID-19 (principal); K70.31 Alcoholic cirrhosis of liver with ascites; R31.0 Gross hematuria; R74.01 Elevation of levels of liver transaminase levels; D64.9 Anemia, unspecified; E87.1 Hypo-osmolality and hyponatremia; N39.0 Urinary tract infection, site not specified; J44.9 Chronic obstructive pulmonary disease, unspecified
CPT/HCPCS: 36415; 51702; 74177; 80053; 80307; 81001; 82140; 83735; 84100; 85025; 85610; 87635; 96365; 99285; J0696; J7030; Q9967; 99284; U0002

== ENCOUNTER 2020-02-07 00:11 | Emergency (ER) | payer OTHER ==
[2020-02-07] MEDS ORDERED: Sodium Chloride 0.9% 2.5 ML Syringe FLUSH PRN (00:38)
[2020-02-07] MEDS ORDERED: Sodium Chloride 0.9% 10 ML Syringe FLUSH PRN (00:38)
[2020-02-07] MEDS ORDERED: Bisacodyl 5 MG Tab PO ONE (00:40)
[2020-02-07] MEDS ORDERED: Bisacodyl 10 MG Supp RECTAL ONE (00:40)
[2020-02-07 01:04] LABS: BLOOD UREA NITROGEN,BUN 29 mg/dL (7.0-18.0); CARBON DIOXIDE,CO2 21.6 mmol/L (21.0-32.0); CHLORIDE,CL 93 mmol/L (98-107); GLUCOSE RANDOM 153 mg/dL (74-106); SODIUM,NA 124 mmol/L (136-148)
--- NOTE | 2020-02-07 01:19 | CR ---
INDICATION: Shortness of breath TECHNIQUE: Chest radiograph 1 view COMPARISON: None FINDINGS: Mediastinum: The mediastinum is normal in appearance. The heart silhouette is normal in size and morphology. Lung: Small lung volumes are present with disc space infiltrates noted in the lungs bilaterally. No sign of pleural effusion seen. No pneumothorax is identified. Bone and Soft tissue: Unremarkable for age. IMPRESSION: 1. Small lung volumes are present with disc space infiltrates noted in the lungs bilaterally. These findings can be seen with atelectasis and/or COVID-19 infection. Dictated by Ag Lee MD @ 02/07/2020 1:19:08 AM Dictated by: Ag Lee MD @ 02/07/2020 01:19:13 (Electronically Signed)
--- NOTE | 2020-02-07 01:36 | EDM.PDOC ---
ED HPI GENERAL MEDICAL PROBLEM - General Chief Complaint: Respiratory Problem Stated Complaint: SHORTNESS OF BREATH Time Seen by Provider: 02/07/20 00:28 - History of Present Illness INITIAL COMMENTS - FREE TEXT/NARRATIVE: HISTORY AND PHYSICAL: History of present illness: This is a 44-year-old gentleman with a history significant for COPD, cirrhosis of the liver, hypertension who presents to the ER today secondary to shortness of breath that started earlier today this morning. Patient reports that approximately 2 weeks ago he was transferred to [facility] for evaluation of his cirrhosis as well as being positive for coronavirus. At that time, patient reports that he had to paracenteses approximately 1 week apart. Patient reports that he was discharged from [facility] approximately a week ago. He reports he was doing well and went to [place] in order to purchase a car. Patient reports while he was at [place], he had an episode of hepatic encephalopathy and was running around his hotel naked and was transferred to the ER there. Patient reports while he was at the ER he was admitted to the hospital for further treatment of his hepatic encephalopathy. Patient reports that he was discharged from [facility] yesterday after a blood transfusion. Patient reports that his hemoglobin was 6.4 and received 1 unit of blood at that time. Patient presents ER today secondary to feeling short of breath that started earlier this morning. Patient denies any chest pain or abdominal pain. Patient reports that his abdomen feels bloated. Patient denies any melena or bright red blood per rectum. Patient denies any nausea, vomiting, diarrhea. Patient reports that he has had decreased p.o. intake but has been able to tolerate p.o. liquid without any difficulty. Patient reports that he has been taking lactulose but has had no bowel movement all day today. Patient took his daily dose of lactulose this evening. Patient denies any recent fevers, shakes, chills, chest pain, abdominal pain, dysuria, frequency, urgency, hematuria, cough, URI symptoms. Patient reports that he feels well while he is laying flat and resting. Patient reports that he has baseline significant edema to his lower extremities. Patient is currently taking Ensure protein shakes to supplement his protein levels. Review of systems: As per history of present illness and below otherwise all systems reviewed and negative. Past medical history: As per history of present illness and as reviewed below otherwise noncontributory. Surgical history: As per history of present illness and as reviewed below otherwise noncontributory. Social history: No reported history of drug or alcohol abuse. Family history: As per history of present illness and as reviewed below otherwise noncontributory. Physical exam: Constitutional: Patient is oriented to person, place, and time. Appears well- developed and well-nourished. No distress. HEENT: Moist mucous membranes Head: Normocephalic and atraumatic Eyes: Right eye exhibits no discharge. Left eye exhibits no discharge. No scleral icterus Neck: Normal range of motion. No tracheal deviation present. Cardiovascular: Normal rate and regular rhythm. Pulmonary: Effort normal, no respiratory distress. No wheezing rales or rhonchi Abdominal: distention noted. Abdomen is soft, nontender, no rebound or guarding, normal active bowel sounds. Patient's abdomen is slightly distended but not taut Musculoskeletal: Normal range of motion 3+ bipedal edema. Neurologic: Alert and oriented to person, place and time. No asterixis, Skin: [place], warm and dry. Psychiatric: Normal mood and affect. Behavior is normal. Judgment and thought content normal. Rectal exam is heme-negative brown stool Nursing note and vital signs have been reviewed Diagnostics: CBC, CMP, EKG, Chest Xray: Normal cardiac silhouette No infiltrates or effusions identified. No PTX No evidence of acute bony fracture. As interpreted by ER MD: Josiah EKG: As interpreted by ER physician: Josiah: Nonspecific ST-T wave abnormalities Normal axis No evidence of ST elevation ME Normal sinus rhythm heart rate of 98 Therapeutics: Patient reports that his hemoglobin last week prior to his blood transfusion was 6.4. Patient reports he received 1 unit of blood at that time and reports that his hemoglobin of 7.7 appears to be better than what he usually runs. Assessment and plan: This is a 44-year-old gentleman with multiple chronic medical conditions including end-stage liver disease with cirrhosis that has required paracenteses in the past who is currently on lactulose and has been on it for quite some time secondary to his episodes of hepatic encephalopathy in the past. Patient presents ER today secondary to shortness of breath. Patient appears to be clinically and hemodynamically stable here in the ED. Patient's pulse ox has been 99% on room air. Patient's chest x-ray reveals a slightly enlarged heart and a portable chest x-ray with no evidence of florid pulmonary edema, no effusions. I have discussed with the patient's the options of admission versus discharge. At this time, I do not see any emergent cause or need for admission to the hospital at this time. Patient's hemoglobin although low does not appears to be near patient's current baseline. Patient reports that he did receive a unit of blood recently secondary to a hemoglobin of 6.4. His hemoglobin of 7.7 is in the range where I would expect it to be after receiving 1 unit of blood for hemoglobin 6.4. Patient's chest x-ray does not show any evidence of CHF or pneumonia. Patient's EKG does not show any evidence of acute cardiac etiology of his shortness of breath. Patient does have increased swelling to his abdomen and he was concerned that that might be causing him to feel short of breath. At this time, the patient's abdomen is soft but distended without evidence of need for emergent paracentesis at this time. I have discussed with the patient my reluctance regarding unnecessary paracenteses which might result in infection and depleting his albumin level even further. Patient is in agreement at this time. Patient's rectal exam is heme-negative brown stool. Patient has an appointment to see his doctor on February 13. We will for discharge Definitive disposition and diagnosis as appropriate pending reevaluation and review of above. - Related Data Allergies Allergy/AdvReac Type Severity Reaction Status Date / Time No Known Allergies Allergy Verified 01/13/20 02:28 Home Meds: Home Meds Albuterol Sulfate [Proair Hfa] 2 puff INH ASDIRECTED PRN 10/23/17 [History] Budesonide/Formoterol [Symbicort 160-4.5 MCG] 1 puff INH ASDIRECTED 02/17/19 [History] Bumetanide 1 mg PO BID 02/07/20 [History] Folic Acid 1 mg PO DAILY 02/07/20 [History] Lactulose [Cephulac] 20 gm PO TID 02/07/20 [History] Naltrexone 50 mg PO DAILY 02/07/20 [History] Omeprazole 20 mg PO DAILY 02/07/20 [History] Prazosin HCl [Prazosin] 1 mg PO BEDTIME 02/07/20 [History] Rifaximin [Xifaxan] 550 mg PO BID 02/07/20 [History] Spironolactone [Aldactone] 100 mg PO DAILY 02/07/20 [History] Thiamine HCl [B-1] 300 mg PO BID 02/07/20 [History] diphenhydrAMINE [Benadryl] 25 mg PO BEDTIME 02/07/20 [History] Past Medical History HEENT History: Reports: None Cardiovascular History: Reports: None Respiratory History: Reports: COPD, Other (See Below) Other Respiratory History: on inhaler Gastrointestinal History: Reports: Cirrhosis, Jaundice Musculoskeletal History: Reports: Back Pain, Chronic Other Musculoskeletal History: bulging discs per PT. Sciatic issues Psychiatric History: Reports: Addiction, PTSD Endocrine/Metabolic History: Reports: None Insulin Pump Model and Trimmer Buffing Wheel: none Hematologic History: Reports: None Immunologic History: Reports: None Oncologic (Cancer) History: Reports: None - Infectious Disease History Infectious Disease History: Reports: Other (See Below) Other Infectious Disease History: covid-19 - Past Surgical History Head Surgeries/Procedures: Reports: None Respiratory Surgical History: Reports: None Other GI Surgeries/Procedures: hx ulcer. Abd taping removal 5000ml fluid 02/03/2020 Oncologic Surgical History: Reports: None Social & Family History - Family History Family Medical History: No Pertinent Family History - Tobacco Use Tobacco Use Status *Q: Former Tobacco User Used Tobacco, but Quit: Yes Month/Year Tobacco Last Used: quit two years ago - Caffeine Use Caffeine Use: Reports: Coffee Caffeine Use Comment: cup of coffee this am - Recreational Drug Use Recreational Drug Use: No ED ROS GENERAL - Review of Systems Review Of Systems: See Below ED EXAM, GENERAL - Physical Exam Exam: See Below #1 Interpretation EKG Interpretation Comments: EKG: As interpreted by ER physician: Josiah: Nonspecific ST-T wave abnormalities Normal axis No evidence of ST elevation ME Normal sinus rhythm heart rate of 98 Course - Vital Signs Last Recorded V/S: Last Vital Signs Temp 96.7 F L 02/07/20 00:24 Pulse 96 02/07/20 01:12 Resp 20 02/07/20 01:12 BP 103/61 02/07/20 01:12 Pulse Ox 98 02/07/20 01:12 - Orders/Labs/Meds Orders: Active Orders 24 hr Category Date Time Status Sodium Chloride 0.9% [Normal Saline] 500 ml Med 02/07/20 01:45 Ordered IV .BOLUS Sodium Chloride 0.9% [Saline Flush] Med 02/07/20 00:38 Active 10 ml FLUSH ASDIRECTED PRN Sodium Chloride 0.9% [Saline Flush] Med 02/07/20 00:38 Active 2.5 ml FLUSH ASDIRECTED PRN Saline Lock Insert [OM.PC] Stat Oth 02/07/20 00:38 Ordered Medication Orders Sodium Chloride (Normal Saline) 500 mls @ 999 mls/hr IV .BOLUS JANA Sodium Chloride (Saline Flush) 10 ml FLUSH ASDIRECTED PRN PRN Reason: Keep Vein Open Last Admin: 02/07/20 01:17 Dose: 10 ml Documented by: NIYAH Sodium Chloride (Saline Flush) 2.5 ml FLUSH ASDIRECTED PRN PRN Reason: Keep Vein Open Last Admin: 02/07/20 01:17 Dose: 2.5 ml Documented by: REUSCIN Labs: Laboratory Tests 02/07/20 02/07/20 Range/Units 00:25 00:25 WBC 14.81 H (4.0-11.0) K/uL RBC 2.37 L (4.50-5.90) M/uL Hgb 7.7 L (13.0-17.0) g/dL Hct 22.3 L (38.0-50.0) % MCV 94.1 (80.0-98.0) fL MCH 32.5 H (27.0-32.0) pg MCHC 34.5 (31.0-37.0) g/dL RDW Std Deviation 59.7 (28.0-62.0) fl RDW Coeff of Monster 19 H (11.0-15.0) % Plt Count 61 L (150-400) K/uL MPV 11.30 (7.40-12.00) fL Add Manual Diff YES Neutrophils % (Manual) 76 (48.0-80.0) % Band Neutrophils % 12 % Lymphocytes % (Manual) 2 L (16.0-40.0) % Monocytes % (Manual) 8 (0.0-15.0) % Eosinophils % (Manual) 1 (0.0-7.0) % Myelocytes % 1 % Absolute Seg Neuts 11.3 H (1.4-5.7) Band Neutrophils # 1.8 Lymphocytes # (Manual) 0.3 L (0.6-2.4) Monocytes # (Manual) 1.2 H (0.0-0.8) Eosinophils # (Manual) 0.1 (0.0-0.7) Absolute Myelocytes 0.1 Sodium 124 L (136-148) mmol/L Potassium 4.0 (3.5-5.1) mmol/L Chloride 93 L (98-107) mmol/L Carbon Dioxide 21.6 (21.0-32.0) mmol/L BUN 29 H (7.0-18.0) mg/dL Creatinine 1.2 (0.8-1.3) mg/dL Est Cr Clr Drug Dosing TNP Estimated GFR (MDRD) > 60.0 ml/min Glucose 153 H (74-106) mg/dL Calcium 7.4 L (8.5-10.1) mg/dL Total Bilirubin 9.3 H (0.2-1.0) mg/dL AST 95 H (15-37) IU/L ALT 85 H (14-63) IU/L Alkaline Phosphatase 116 (46-116) U/L Troponin I < 0.050 (0.000-0.056) ng/mL Total Protein 5.8 L (6.4-8.2) g/dL Albumin 1.8 L (3.4-5.0) g/dL Globulin 4.0 (2.6-4.0) g/dL Albumin/Globulin Ratio 0.5 L (0.9-1.6) Meds: Medications Generic Name Dose Route Start Last Admin Trade Name Freq PRN Reason Stop Dose Admin Sodium Chloride 500 mls @ 999 mls/hr 02/07/20 01:45 Normal Saline IV .BOLUS JANA Sodium Chloride 10 ml 02/07/20 00:38 02/07/20 01:17 Saline Flush FLUSH 10 ml ASDIRECTED PRN Administration Keep Vein Open Sodium Chloride 2.5 ml 02/07/20 00:38 02/07/20 01:17 Saline Flush FLUSH 2.5 ml ASDIRECTED PRN Administration Keep Vein Open Discontinued Medications Generic Name Dose Route Start Last Admin Trade Name Freq PRN Reason Stop Dose Admin Bisacodyl 10 mg 02/07/20 00:40 02/07/20 01:01 Dulcolax PO 02/07/20 00:41 10 mg ONETIME ONE Administration Bisacodyl 10 mg 02/07/20 00:40 02/07/20 00:54 Dulcolax RECTAL 02/07/20 00:41 10 mg ONETIME ONE Administration Departure - Departure Time of Disposition: 01:37 Disposition: Home, Self-Care 01 Clinical Impression: Dyspnea, Anemia, Ascites - Discharge Information Instructions: Shortness of Breath, Adult, [id number], Preventing Iron Defici ency Anemia, Adult Referrals: PCP,None [Primary Care Provider] - Forms: ED Department Discharge Additional Instructions: You were seen and evaluated in the ER today secondary to your shortness of breath. Your ER work-up is been unremarkable except for anemia which appears to be a your baseline. Please keep your appointment with your doctor next week. Return to the ER if you have any new or concerning symptoms. The following information is given to patients seen in the emergency department who are being discharged to home. This information is to outline your options for follow-up care. We provide all patients seen in our emergency department with a follow-up referral. The need for follow-up, as well as the timing and circumstances, are variable depending upon the specifics of your emergency department visit. If you don't have a primary care physician on staff, we will provide you with a referral. We always advise you to contact your personal physician following an emergency department visit to inform them of the circumstance of the visit and for follow-up with them and/or the need for any referrals to a consulting specialist. The emergency department will also refer you to a specialist when appropriate. This referral assures that you have the opportunity for follow-up care with a specialist. All of these measure are taken in an effort to provide you with optimal care, which includes your follow-up. Under all circumstances we always encourage you to contact your private physician who remains a resource for coordinating your care. When calling for follow-up care, please make the office aware that this follow-up is from your recent emergency room visit. If for any reason you are refused follow-up, please contact the [facility] Emergency Department at and asked to speak to the emergency department charge nurse. Ivan Valencia [facility] - Primary Care [address] [place] [id number] [facility] [address] [place] [id number] Sepsis Event Note (ED) - Evaluation Sepsis Screening Result: No Definite Risk - Focused Exam Vital Signs: Vital Signs Temp Pulse Resp BP Pulse Ox 02/07/20 01:12 96 20 103/61 98 02/07/20 00:24 96.7 F L 98 18 100/62 98 - My Orders Last 24 Hours: My Active Orders 02/07/20 00:38 Sodium Chloride 0.9% [Saline Flush] 10 ml FLUSH ASDIRECTED PRN Sodium Chloride 0.9% [Saline Flush] 2.5 ml FLUSH ASDIRECTED PRN Saline Lock Insert [OM.PC] Stat 02/07/20 01:45 Sodium Chloride 0.9% [Normal Saline] 500 ml IV .BOLUS - Assessment/Plan Last 24 Hours: My Active Orders 02/07/20 00:38 Sodium Chloride 0.9% [Saline Flush] 10 ml FLUSH ASDIRECTED PRN Sodium Chloride 0.9% [Saline Flush] 2.5 ml FLUSH ASDIRECTED PRN Saline Lock Insert [OM.PC] Stat 02/07/20 01:45 Sodium Chloride 0.9% [Normal Saline] 500 ml IV .BOLUS
[2020-02-07] MEDS ORDERED: Sodium Chloride 0.9% 500 ML IV SCH (01:45)
== END 2020-02-07 02:40 | disposition home or self-care (01) ==
LOC: MW.ED 00:11
DX: D64.9 Anemia, unspecified (principal); R18.8 Other ascites; J44.9 Chronic obstructive pulmonary disease, unspecified; I10 Essential (primary) hypertension; Z86.19 Personal history of other infectious and parasitic diseases; Z87.891 Personal history of nicotine dependence; Z79.899 Other long term (current) drug therapy
CPT/HCPCS: 36415; 71045; 80053; 84484; 85025; 93005; 99285; A9270; J7040; 93010; 99283

== ENCOUNTER 2020-02-08 15:00 | Emergency (ER) | payer OTHER ==
[2020-02-08] MEDS ORDERED: Pantoprazole 80 MG in Sodium Chloride 0.9% 10 ML IV ONE (15:05)
[2020-02-08] MEDS ORDERED: Octreotide 500 MCG in Sodium Chloride 0.9% 495 ML IV SCH (15:15)
[2020-02-08] MEDS ORDERED: Octreotide 100 MCG/1 ML Amp IV ONE (15:30)
[2020-02-08] MEDS ORDERED: Tranexamic Acid 1,000 MG in Sodium Chloride 0.9% 100 ML IV ONE (15:31)
[2020-02-08 15:45] LABS: BLOOD UREA NITROGEN,BUN 30 mg/dL (7.0-18.0); CARBON DIOXIDE,CO2 24.6 mmol/L (21.0-32.0); CHLORIDE,CL 94 mmol/L (98-107); GLUCOSE RANDOM 120 mg/dL (74-106); POTASSIUM,K 4.2 mmol/L (3.5-5.1); SODIUM,NA 126 mmol/L (136-148)
--- NOTE | 2020-02-08 18:45 | EDM.PDOC ---
ED HPI GENERAL MEDICAL PROBLEM - General Chief Complaint: Abdominal Pain Stated Complaint: THROWING UP BLOOD Time Seen by Provider: 02/08/20 15:30 - History of Present Illness INITIAL COMMENTS - FREE TEXT/NARRATIVE: CHIEF COMPLAINT(S): Bleeding from mouth HISTORY OF PRESENT ILLNESS: This is a 44-year-old man with a past medical history of alcoholic cirrhosis with history of hepatic encephalopathy and recent admission in [facility] for hepatic encephalopathy who presents to the emergency department for bleeding from mouth. The patient states that prior to arrival he was eating macaroni and cheese and he started to experience bleeding from his mouth. He states that it felt like his mouth was just feeling with blood. He brings in with him a bottle of the blood. There was approximately 200 cc of blood which is bright red. He denies any chest pain, shortness of breath, abdominal pain, syncope. He states that he does not have a history of esophageal varices. States that he was just recently discharged. States that he has a history of clotting. He denies any pain at all whatsoever. He denies any use of oral anticoagulation. He denies any melena, hematochezia or hematemesis. He denies any hemoptysis. REVIEW OF SYSTEMS: Constitutional: Denies fever, chills. Eyes: Denies eye pain Ears, Nose, Mouth, & Throat: Positive for bleeding from mouth. Denies earache Cardiovascular: Denies chest pain Respiratory: Denies shortness of breath Gastrointestinal: Denies Nausea, vomiting, diarrhea, hematochezia. Genitourinary: Denies hematuria Skin:Denies a rash Neurological: Denies blurred vision Psychiatric: Denies depression PAST MEDICAL HISTORY: As per history of present illness and as reviewed below otherwise noncontributory. SURGICAL HISTORY: As per history of present illness and as reviewed below otherwise noncontributory. SOCIAL HISTORY: As per history of present illness and as reviewed below otherwise noncontributory. FAMILY HISTORY: As per history of present illness and as reviewed below otherwise noncontributory. EXAMINATION OF ORGAN SYSTEMS/BODY AREAS: Constitutional: Blood pressure was 129/70, heart rate 105, respiratory rate 18 with an oxygen saturation of 98% on room air. Temperature 36.7 General: Overall well-appearing man who is in no acute distress however does have a bottle of blood with him. Psychiatric: Appropriate mood and affect. Eyes: Scleral icterus is present. ENMT: Moist mucous membranes. No pharyngeal erythema on examination there is no blood in the posterior pharynx however there is a small area that is bleeding near the upper right posterior molars. There does not appear to be any obvious laceration however there is bleeding from this area. There is poor dentition. Cardiovascular: Tachycardic but regular no gallops, murmurs, or rubs. Bilateral upper extremity pulses symmetric and intact. No peripheral edema. No JVD. Respiratory: Lungs clear to auscultation bilaterally. No wheezes, rales, or rhonchi. Gastrointestinal: Soft, nontender, distended. There is an area on his right abdomen where they had done a paracentesis with no surrounding erythema. Genitourinary: No suprapubic tenderness Musculoskeletal: Normal range of motion. Skin: No lesions or abrasions. Neurological: Alert, GCS 15 MEDICAL DECISION MAKING AND COURSE IN THE ED WITH INTERPRETATION/REVIEW OF DIAGNOSTIC STUDIES: This is a 44-year-old man with a past medical history of alcoholic cirrhosis with a history of hepatic encephalopathy with history of anemia who was just recently discharged who presents to the emergency department with oropharyngeal bleeding after dinner. At this time the patient is mildly tachycardic however his blood pressure appears to be unchanged from prior. At this time I did obtain TXA and subcu with gauze and placed it in the mouth near the posterior molars and had the patient bite down on the area for approximately 15 minutes. At this time given his history we will obtain repeat labs as he was just in for a visit yesterday for shortness of breath. Will obtain CBC, coags, CMP and lactic acid. I do not believe any imaging is indicated at this time. Given the history of cirrhosis my initial concern was esophageal varices therefore I did order octreotide and pantoprazole and ordered 1 unit of blood. However after complete evaluation I did cancel these orders as this appears to be a small laceration/abrasion in the oropharynx. We will attempt to achieve hemostasis. Laboratory: CBC reveals a leukocytosis of 14.94 which is unchanged from prior and a normocytic anemia with a hemoglobin of 7.7 and hematocrit of 22.5 which is unchanged from yesterday. There is thrombocytopenia at 55 which appears to be unchanged. INR is normal at 1.75. Lactic acid is 1.3. CMP reveals hyponatremia at 126, hypochloremia at 93 hypocalcemia at 7.4 and an elevated total bilirubin at 10.4. There is mild AST and ALT elevation at 93 and 88 with elevation in alkaline phosphatase at 121. There is hypoalbuminemia at 1.8. These labs appear to be unchanged from yesterday. After approximately 15 minutes of compression we did remove the TXA soaked gauze. There was no active bleeding in the posterior pharynx or in the oropharyngeal area at this time. I did discuss with the patient I like to observe him for approximately 4 hours to evaluate for rebleeding. He was amenable to this plan. At this time his tachycardia had resolved and he appeared stable. After a period of observation the patient had no recurrent bleeding. Given no change in his laboratory analysis and no signs of active bleeding I did discuss discharge with the patient. I discussed that at this time he would be stable for discharge. I discussed that the he were to have any new or worsening bleeding he knew to return to the emergency department. In addition I discussed with him that if his stool turned black or red that he need to also return to the emergency department. He expressed understanding and was amenable to discharge at this time. DISPOSITION: The patient was discharged home in stable condition. The patient follow-up with his primary care physician as needed. CONDITION: Fair PROCEDURES: None FINAL IMPRESSION(S)/DIAGNOSES: 1. Acute oropharyngeal bleeding likely secondary to small laceration, resolved Last Concepcion M.D. - Related Data Allergies Allergy/AdvReac Type Severity Reaction Status Date / Time No Known Allergies Allergy Verified 02/08/20 15:26 Home Meds: Home Meds Albuterol Sulfate [Proair Hfa] 2 puff INH ASDIRECTED PRN 10/23/17 [History] Budesonide/Formoterol [Symbicort 160-4.5 MCG] 1 puff INH ASDIRECTED 02/17/19 [History] Bumetanide 1 mg PO BID 02/07/20 [History] Folic Acid 1 mg PO DAILY 02/07/20 [History] Lactulose [Cephulac] 20 gm PO TID 02/07/20 [History] Naltrexone 50 mg PO DAILY 02/07/20 [History] Omeprazole 20 mg PO DAILY 02/07/20 [History] Prazosin HCl [Prazosin] 1 mg PO BEDTIME 02/07/20 [History] Rifaximin [Xifaxan] 550 mg PO BID 02/07/20 [History] Spironolactone [Aldactone] 100 mg PO DAILY 02/07/20 [History] Thiamine HCl [B-1] 300 mg PO BID 02/07/20 [History] diphenhydrAMINE [Benadryl] 25 mg PO BEDTIME 02/07/20 [History] Past Medical History HEENT History: Reports: None Cardiovascular History: Reports: None Respiratory History: Reports: COPD, Other (See Below) Other Respiratory History: on inhaler Gastrointestinal History: Reports: Cirrhosis, Jaundice Musculoskeletal History: Reports: Back Pain, Chronic Other Musculoskeletal History: bulging discs per PT. Sciatic issues Psychiatric History: Reports: Addiction, PTSD Endocrine/Metabolic History: Reports: None Insulin Pump Model and Pediatric Clinical Dietician: none Hematologic History: Reports: None Immunologic History: Reports: None Oncologic (Cancer) History: Reports: None - Infectious Disease History Infectious Disease History: Reports: Other (See Below) Other Infectious Disease History: covid-19 - Past Surgical History Head Surgeries/Procedures: Reports: None Respiratory Surgical History: Reports: None Other GI Surgeries/Procedures: hx ulcer. Abd taping removal 5000ml fluid 02/03/2020 Oncologic Surgical History: Reports: None Social & Family History - Family History Family Medical History: No Pertinent Family History - Caffeine Use Caffeine Use: Reports: Coffee Caffeine Use Comment: cup of coffee this am - Alcohol Use Date of Last Drink: 01/12/20 - Recreational Drug Use Recreational Drug Use: No ED ROS GENERAL - Review of Systems Review Of Systems: See Below ED EXAM, GENERAL - Physical Exam Exam: See Below Course - Vital Signs Last Recorded V/S: Last Vital Signs Temp 36.7 C 02/08/20 15:00 Pulse 59 L 02/08/20 15:00 Resp 18 02/08/20 15:00 BP 129/70 02/08/20 15:00 Pulse Ox 98 02/08/20 15:00 - Orders/Labs/Meds Labs: Laboratory Tests 02/08/20 02/08/20 02/08/20 Range/Units 15:10 15:10 15:10 WBC 14.94 H (4.0-11.0) K/uL RBC 2.41 L (4.50-5.90) M/uL Hgb 7.7 L (13.0-17.0) g/dL Hct 22.5 L (38.0-50.0) % MCV 93.4 (80.0-98.0) fL MCH 32.0 (27.0-32.0) pg MCHC 34.2 (31.0-37.0) g/dL RDW Std Deviation 65.6 H (28.0-62.0) fl RDW Coeff of Monster 19 H (11.0-15.0) % Plt Count 55 L (150-400) K/uL MPV 10.70 (7.40-12.00) fL Neut % (Auto) 79.2 (48.0-80.0) % Lymph % (Auto) 8.1 L (16.0-40.0) % Columbia % (Auto) 9.9 (0.0-15.0) % Eos % (Auto) 2.7 (0.0-7.0) % Baso % (Auto) 0.1 (0.0-1.5) % Neut # (Auto) 11.8 H (1.4-5.7) K/uL Lymph # (Auto) 1.2 (0.6-2.4) K/uL Columbia # (Auto) 1.5 H (0.0-0.8) K/uL Eos # (Auto) 0.4 (0.0-0.7) K/uL Baso # (Auto) 0.0 (0.0-0.1) K/uL Nucleated RBC % 0.0 /100WBC Nucleated RBCs # 0 K/uL INR 1.75 Lactate 1.3 (0.20-2.00) mmol/L Sodium (136-148) mmol/L Potassium (3.5-5.1) mmol/L Chloride (98-107) mmol/L Carbon Dioxide (21.0-32.0) mmol/L BUN (7.0-18.0) mg/dL Creatinine (0.8-1.3) mg/dL Est Cr Clr Drug Dosing mL/min Estimated GFR (MDRD) ml/min Glucose (74-106) mg/dL Calcium (8.5-10.1) mg/dL Total Bilirubin (0.2-1.0) mg/dL AST (15-37) IU/L ALT (14-63) IU/L Alkaline Phosphatase (46-116) U/L Ammonia (19-54) ug/dL Total Protein (6.4-8.2) g/dL Albumin (3.4-5.0) g/dL Globulin (2.6-4.0) g/dL Albumin/Globulin Ratio (0.9-1.6) 02/08/20 02/08/20 Range/Units 15:10 15:10 WBC (4.0-11.0) K/uL RBC (4.50-5.90) M/uL Hgb (13.0-17.0) g/dL Hct (38.0-50.0) % MCV (80.0-98.0) fL MCH (27.0-32.0) pg MCHC (31.0-37.0) g/dL RDW Std Deviation (28.0-62.0) fl RDW Coeff of Monster (11.0-15.0) % Plt Count (150-400) K/uL MPV (7.40-12.00) fL Neut % (Auto) (48.0-80.0) % Lymph % (Auto) (16.0-40.0) % Columbia % (Auto) (0.0-15.0) % Eos % (Auto) (0.0-7.0) % Baso % (Auto) (0.0-1.5) % Neut # (Auto) (1.4-5.7) K/uL Lymph # (Auto) (0.6-2.4) K/uL Columbia # (Auto) (0.0-0.8) K/uL Eos # (Auto) (0.0-0.7) K/uL Baso # (Auto) (0.0-0.1) K/uL Nucleated RBC % /100WBC Nucleated RBCs # K/uL INR Lactate (0.20-2.00) mmol/L Sodium 126 L (136-148) mmol/L Potassium 4.2 (3.5-5.1) mmol/L Chloride 94 L (98-107) mmol/L Carbon Dioxide 24.6 (21.0-32.0) mmol/L BUN 30 H (7.0-18.0) mg/dL Creatinine 1.1 (0.8-1.3) mg/dL Est Cr Clr Drug Dosing 94.06 mL/min Estimated GFR (MDRD) > 60.0 ml/min Glucose 120 H (74-106) mg/dL Calcium 7.4 L (8.5-10.1) mg/dL Total Bilirubin 10.4 H (0.2-1.0) mg/dL AST 93 H (15-37) IU/L ALT 88 H (14-63) IU/L Alkaline Phosphatase 121 H (46-116) U/L Ammonia 20 (19-54) ug/dL Total Protein 5.8 L (6.4-8.2) g/dL Albumin 1.8 L (3.4-5.0) g/dL Globulin 4.0 (2.6-4.0) g/dL Albumin/Globulin Ratio 0.5 L (0.9-1.6) Meds: Medications Discontinued Medications Generic Name Dose Route Start Last Admin Trade Name Freq PRN Reason Stop Dose Admin Pantoprazole Sodium 80 mg/ 10 mls @ 300 mls/hr 02/08/20 15:05 02/08/20 15:38 Sodium Chloride IV 02/08/20 15:06 Not Given NOW ONE Octreotide Acetate 500 mcg/ 500 mls @ 50 mls/hr 02/08/20 15:15 02/08/20 15:38 Sodium Chloride IV Not Given Q10H JANA 50 MCG/HR Tranexamic Acid 1,000 mg/ 110 mls @ 660 mls/hr 02/08/20 15:31 02/08/20 15:42 Sodium Chloride IV 02/08/20 15:40 Not Given ONETIME ONE Octreotide Acetate 50 mcg 02/08/20 15:30 02/08/20 15:38 Sandostatin IV 02/08/20 15:31 Not Given ONETIME ONE Tranexamic Acid Confirm 02/08/20 15:33 02/08/20 15:38 Cyklokapron Administered 02/08/20 15:34 Not Given Dose 1,000 mg .ROUTE .STK-MED ONE Tranexamic Acid 1,000 mg 02/08/20 15:40 02/08/20 15:42 Cyklokapron IV 02/08/20 15:41 1,000 mg ONETIME ONE Administration Departure - Departure Time of Disposition: 18:36 Disposition: Home, Self-Care 01 Condition: Fair Clinical Impression: Laceration of oral cavity Qualifiers: Encounter type: initial encounter Qualified Code(s): S01.512A - Laceration without foreign body of oral cavity, initial encounter - Discharge Information *PRESCRIPTION DRUG MONITORING PROGRAM REVIEWED*: No *COPY OF PRESCRIPTION DRUG MONITORING REPORT IN PATIENT SANA: No Instructions: Laceration Care, Adult, [id number] Referrals: Sadi Sampson, BUDGET CONTROLLER [Primary Care Provider] - Forms: ED Department Discharge Additional Instructions: The patient is informed of any results of their evaluation and diagnostic workup and all questions are answered. They are given discharge instructions and return precautions. The patient is stable for discharge. The patient states they understand and agree with the plan and that they will return if their symptoms get worse or if they have any new concerns. The following information is given to patients seen in the emergency department who are being discharged to home. This information is to outline your options for follow-up care. We provide all patients seen in our emergency department with a follow-up referral. The need for follow-up, as well as the timing and circumstances, are variable depending upon the specifics of your emergency department visit. If you don't have a primary care physician on staff, we will provide you with a referral. We always advise you to contact your personal physician following an emergency department visit to inform them of the circumstance of the visit and for follow-up with them and/or the need for any referrals to a consulting specialist. The emergency department will also refer you to a specialist when appropriate. This referral assures that you have the opportunity for follow-up care with a specialist. All of these measure are taken in an effort to provide you with optimal care, which includes your follow-up. Under all circumstances we always encourage you to contact your private physician who remains a resource for coordinating your care. When calling for follow-up care, please make the office aware that this follow-up is from your recent emergency room visit. If for any reason you are refused follow-up, please contact the [facility] Emergency Department at and asked to speak to the emergency department charge nurse. Your evaluated today on an emergent basis. We did find a small laceration in the right side of your mouth. It has since stopped bleeding. If you are to have worsening bleeding please return to the emergency department. Please follow-up at your scheduled appointments. [facility] - Primary [facility] [address] [place] [id number] [facility] [address] [place] [id number] Sepsis Event Note (ED) - Evaluation Sepsis Screening Result: No Definite Risk - Focused Exam Vital Signs: Vital Signs Temp Pulse Resp BP Pulse Ox 02/08/20 15:00 36.7 C 59 L 18 129/70 98
== END 2020-02-08 19:00 | disposition home or self-care (01) ==
LOC: MW.ED 15:00
DX: S01.512A Laceration without foreign body of oral cavity, initial encounter (principal); J44.9 Chronic obstructive pulmonary disease, unspecified; R00.0 Tachycardia, unspecified; Z86.19 Personal history of other infectious and parasitic diseases; Z79.899 Other long term (current) drug therapy; X58.XXXA Exposure to other specified factors, initial encounter
CPT/HCPCS: 36415; 80053; 82140; 83605; 85025; 85610; 96374; 99283; 99283-25

== ENCOUNTER 2020-02-09 21:28 | Emergency (ER) | payer OTHER ==
[2020-02-09] MEDS ORDERED: Sodium Chloride 0.9% 2.5 ML Syringe FLUSH PRN (21:43)
[2020-02-09] MEDS ORDERED: Tranexamic Acid 1,000 MG in Sodium Chloride 0.9% 100 ML IV ONE ×3 (21:43→22:39)
[2020-02-09] MEDS ORDERED: Sodium Chloride 0.9% 10 ML Syringe FLUSH PRN (21:43)
[2020-02-09] MEDS ORDERED: Lactated Ringers 1,000 ML IV ONE (21:53)
--- NOTE | 2020-02-09 21:59 | EDM.PDOC ---
ED HPI GENERAL MEDICAL PROBLEM - General Chief Complaint: Gastrointestinal Problem Stated Complaint: TOOTH PAIN Time Seen by Provider: 02/09/20 21:29 Source of Information: Reports: Patient, Old Records History Limitations: Reports: No Limitations - History of Present Illness INITIAL COMMENTS - FREE TEXT/NARRATIVE: This is a very pleasant 45-year-old man with a past medical history of alcoholic cirrhosis with ascites, recent hospitalization in [facility] for hepatic encephalopathy, COPD, hypertension, recent coronavirus infection presenting with oral bleeding and black stools. He was seen in our emergency department yesterday for oral bleeding. The physician noted a small laceration or abrasion in the oropharynx, hemoglobin was 7.7 which was about baseline for him, he was noted to be thrombocytopenic to 55,000 which is about baseline as well. Noted to be hyponatremic. He was initially tachycardic but this resolved. The physician placed TXA soaked gauze which apparently stopped the oral bleeding. Patient states that around 5:00 this evening he began developing black-colored stools. About an hour ago, he began having recurrent bleeding from the alfonso pharyngeal cavity, he thinks it is coming from the same area that was bleeding yesterday. He has been spitting up bright red blood per mouth. Denies any hematemesis or bright red blood per rectum, epistaxis, or hematuria. He also complains that his paracentesis puncture sites on the right side the abdomen have been persistently leaking fluid for the past 5 or so days since he was seen in the emergency department in [place], [place]. ROS: A 10-point review of systems was negative, except as noted in the HPI (or in the ROS section of this note). Past medical history: Reviewed, no additional pertinent history. Surgical history: Reviewed in system, no additional pertinent history. Social history: Reviewed in system, no additional pertinent history. Family history: Reviewed in system, no additional pertinent history. PHYSICAL EXAM Vital signs reviewed. Nursing notes reviewed. Constitutional: Awake, alert, non-distressed. Head: Normocephalic, atraumatic. Eyes: EOMI, conjunctiva normal, no discharge, sclera appear icteric. Ears, Nose, Throat: External ears and nose normal, moist oral mucosa. There a ppears to be bright red blood oozing from an area of the buccal mucosa just lateral to the right upper molars. There is dried blood about the mouth. Cardiovascular: Tachycardic, 2+ radial pulse, capillary refill less than 2 seconds. Pulmonary: normal work of breathing, no accessory muscle use. Abdomen/GI: Protuberant and ascitic abdomen, soft, nontender, nondistended, no guarding or rigidity. : Black colored guaiac positive stools. No masses on rectal examination. Musculoskeletal: No deformities. Integumentary: Appropriate color for ethnicity, warm, dry, no pallor or jaundice, no rash. Neurologic: Alert, answering questions appropriately, normal speech, no facial droop, moving all extremities well. Psychiatric: Appropriate mood and affect, normal thought process. This patient was seen and evaluated during the 2019 SARS-CoV-2 novel coronavirus pandemic period. Community viral transmission is ongoing at time of this encounter and the emergency department is operating under pandemic response procedures. Abdomen Pain Score (Numeric/FACES): 3 - Related Data Allergies Allergy/AdvReac Type Severity Reaction Status Date / Time No Known Allergies Allergy Verified 02/09/20 21:34 Home Meds: Home Meds Albuterol Sulfate [Proair Hfa] 2 puff INH ASDIRECTED PRN 10/23/17 [History] Budesonide/Formoterol [Symbicort 160-4.5 MCG] 1 puff INH ASDIRECTED 02/17/19 [History] Bumetanide 1 mg PO BID 02/07/20 [History] Folic Acid 1 mg PO DAILY 02/07/20 [History] Lactulose [Cephulac] 20 gm PO TID 02/07/20 [History] Naltrexone 50 mg PO DAILY 02/07/20 [History] Omeprazole 20 mg PO DAILY 02/07/20 [History] Prazosin HCl [Prazosin] 1 mg PO BEDTIME 02/07/20 [History] Rifaximin [Xifaxan] 550 mg PO BID 02/07/20 [History] Spironolactone [Aldactone] 100 mg PO DAILY 02/07/20 [History] Thiamine HCl [B-1] 300 mg PO BID 02/07/20 [History] diphenhydrAMINE [Benadryl] 25 mg PO BEDTIME 02/07/20 [History] Past Medical History HEENT History: Reports: None Cardiovascular History: Reports: None Respiratory History: Reports: COPD, Other (See Below) Other Respiratory History: on inhaler Gastrointestinal History: Reports: Cirrhosis, Jaundice Musculoskeletal History: Reports: Back Pain, Chronic Other Musculoskeletal History: bulging discs per PT. Sciatic issues Psychiatric History: Reports: Addiction, PTSD Endocrine/Metabolic History: Reports: None Insulin Pump Model and Whipper Beater: none Hematologic History: Reports: None Immunologic History: Reports: None Oncologic (Cancer) History: Reports: None - Infectious Disease History Infectious Disease History: Reports: Novel Coronavirus, Other (See Below) Other Infectious Disease History: covid-19 - Past Surgical History Head Surgeries/Procedures: Reports: None Respiratory Surgical History: Reports: None Other GI Surgeries/Procedures: hx ulcer. Abd taping removal 5000ml fluid 02/03/2020 Oncologic Surgical History: Reports: None Social & Family History - Family History Family Medical History: No Pertinent Family History - Tobacco Use Tobacco Use Status *Q: Current Every Day Tobacco User Years of Tobacco use: 10 Packs/Tins Daily: 0.1 - Caffeine Use Caffeine Use: Reports: None Caffeine Use Comment: cup of coffee this am - Recreational Drug Use Recreational Drug Use: No ED ROS GENERAL - Review of Systems Review Of Systems: See Below ED EXAM, GI/ABD - Physical Exam Exam: See Below Course - Vital Signs Text/Narrative:: 45-year-old male presenting with recurrent oropharyngeal bleeding, black stools, and leaking ascitic fluid from prior paracentesis puncture sites. Differential diagnosis includes but is not limited to: Minor oral trauma, anemia, coagulopathy, thrombocytopenia, blood loss anemia, GI bleed, esophageal varices, and many others. No to be tachycardic on arrival, made n.p.o., IV access established, labs sent off. Ordered IV fluids. I have visualized an area on the right side of the mouth near the lateral border of the right upper molars that appears to be bleeding, I soaked 2 x 2's in tranexamic acid and have the patient bite down to try to achieve hemostasis. We are also going to administer IV TXA and labs are sent off. 11:37 PM: Patient has black stool that is guaiac positive but his hemoglobin is not significantly different from yesterday. I applied Dermabond and I was able to get the paracentesis puncture sites to stop oozing. He is receiving IV fluids. I reapplied the gauze with TXA to the bleeding area of the mouth. Patient will be given ceftriaxone and pantoprazole. Labs show stable normocytic anemia at 7.6, white blood cell count 16.98, platelets are 62,000. INR is normal. Lactate is elevated at 2.3. Sodium is 127, BUN 36, creatinine 1.3. Glucose 126, calcium 7.3, total bilirubin is 11.0. 11:30 PM: Given black stools and oral bleeding, patient will need to be admitted the hospital, likely will need endoscopy for melena and need to have his hemoglobin trended. I did speak with our hospitalist Dr. Reaves, who feels the patient is too medically complicated to admit here and recommends that we transfer him to [facility], where he was recently hospitalized for hepatic encephalopathy. Page out to their hospital to determine if they have capacity this point. 12:06 AM: Dr. Leyva at [facility] agrees to accept, we are working on arranging ambulance transport. Patient is resting comfortably. Oral bleeding has slowed down. 12:52 AM: Lactate normalized after IV fluids, we are awaiting arrival of the EMS crew for transport, patient is resting comfortably. 1:09 AM: EMS crew arrived, care transferred to them. Last Recorded V/S: Last Vital Signs Temp 36.9 C 02/09/20 23:47 Pulse 108 H 02/10/20 00:40 Resp 18 02/10/20 00:40 BP 118/53 L 02/10/20 00:40 Pulse Ox 97 02/10/20 00:40 - Orders/Labs/Meds Orders: Active Orders 24 hr Category Date Time Status Cardiac Monitoring [RC] . DIRECTED Care 02/09/20 21:43 Active Pulse Oximetry [RC] ASDIRECTED Care 02/09/20 21:43 Active Nothing Per Oral Diet [DIET] Diet 02/09/20 Dinner Active Lactated Ringers [Ringers, Lactated] 1,000 ml Med 02/10/20 00:21 Active IV NOW Sodium Chloride 0.9% [Saline Flush] Med 02/09/20 21:43 Active 10 ml FLUSH ASDIRECTED PRN Sodium Chloride 0.9% [Saline Flush] Med 02/09/20 21:43 Active 2.5 ml FLUSH ASDIRECTED PRN Saline Lock Insert [OM.PC] Stat Oth 02/09/20 21:43 Ordered Medication Orders Lactated Ringer's (Ringers, Lactated) 1,000 mls @ 999 mls/hr IV NOW STA Stop: 02/10/20 01:21 Last Admin: 02/10/20 00:24 Dose: 999 mls/hr Documented by: PREETI Sodium Chloride (Saline Flush) 10 ml FLUSH ASDIRECTED PRN PRN Reason: Keep Vein Open Last Admin: 02/09/20 21:46 Dose: 10 ml Documented by: EITAN Sodium Chloride (Saline Flush) 2.5 ml FLUSH ASDIRECTED PRN PRN Reason: Keep Vein Open Last Admin: 02/09/20 21:46 Dose: 2.5 ml Documented by: EITAN Labs: Laboratory Tests 02/09/20 02/09/20 02/09/20 Range/Units 21:40 21:45 21:45 WBC 16.98 H (4.0-11.0) K/uL RBC 2.36 L (4.50-5.90) M/uL Hgb 7.6 L (13.0-17.0) g/dL Hct 22.2 L (38.0-50.0) % MCV 94.1 (80.0-98.0) fL MCH 32.2 H (27.0-32.0) pg MCHC 34.2 (31.0-37.0) g/dL RDW Std Deviation 66.3 H (28.0-62.0) fl RDW Coeff of Monster 20 H (11.0-15.0) % Plt Count 62 L (150-400) K/uL MPV 10.80 (7.40-12.00) fL Neut % (Auto) 76.9 (48.0-80.0) % Lymph % (Auto) 9.8 L (16.0-40.0) % Wallace % (Auto) 11.5 (0.0-15.0) % Eos % (Auto) 1.7 (0.0-7.0) % Baso % (Auto) 0.1 (0.0-1.5) % Neut # (Auto) 13.1 H (1.4-5.7) K/uL Lymph # (Auto) 1.7 (0.6-2.4) K/uL Wallace # (Auto) 2.0 H (0.0-0.8) K/uL Eos # (Auto) 0.3 (0.0-0.7) K/uL Baso # (Auto) 0.0 (0.0-0.1) K/uL Nucleated RBC % 0.1 /100WBC Nucleated RBCs # 0 K/uL INR Lactate 2.3 H* (0.20-2.00) mmol/L Sodium 127 L (136-148) mmol/L Potassium 4.3 (3.5-5.1) mmol/L Chloride 94 L (98-107) mmol/L Carbon Dioxide 24.0 (21.0-32.0) mmol/L BUN 36 H (7.0-18.0) mg/dL Creatinine 1.3 (0.8-1.3) mg/dL Est Cr Clr Drug Dosing 76.43 mL/min Estimated GFR (MDRD) 59.7 ml/min Glucose 126 H (74-106) mg/dL Calcium 7.3 L (8.5-10.1) mg/dL Total Bilirubin 11.0 H (0.2-1.0) mg/dL AST 90 H (15-37) IU/L ALT 80 H (14-63) IU/L Alkaline Phosphatase 109 (46-116) U/L Total Protein 5.8 L (6.4-8.2) g/dL Albumin 1.8 L (3.4-5.0) g/dL Globulin 4.0 (2.6-4.0) g/dL Albumin/Globulin Ratio 0.5 L (0.9-1.6) Blood Type Antibody Screen 02/09/20 02/09/20 02/10/20 Range/Units 22:05 22:05 00:40 WBC (4.0-11.0) K/uL RBC (4.50-5.90) M/uL Hgb (13.0-17.0) g/dL Hct (38.0-50.0) % MCV (80.0-98.0) fL MCH (27.0-32.0) pg MCHC (31.0-37.0) g/dL RDW Std Deviation (28.0-62.0) fl RDW Coeff of Monster (11.0-15.0) % Plt Count (150-400) K/uL MPV (7.40-12.00) fL Neut % (Auto) (48.0-80.0) % Lymph % (Auto) (16.0-40.0) % Wallace % (Auto) (0.0-15.0) % Eos % (Auto) (0.0-7.0) % Baso % (Auto) (0.0-1.5) % Neut # (Auto) (1.4-5.7) K/uL Lymph # (Auto) (0.6-2.4) K/uL Wallace # (Auto) (0.0-0.8) K/uL Eos # (Auto) (0.0-0.7) K/uL Baso # (Auto) (0.0-0.1) K/uL Nucleated RBC % /100WBC Nucleated RBCs # K/uL INR 1.74 Lactate 1.7 (0.20-2.00) mmol/L Sodium (136-148) mmol/L Potassium (3.5-5.1) mmol/L Chloride (98-107) mmol/L Carbon Dioxide (21.0-32.0) mmol/L BUN (7.0-18.0) mg/dL Creatinine (0.8-1.3) mg/dL Est Cr Clr Drug Dosing mL/min Estimated GFR (MDRD) ml/min Glucose (74-106) mg/dL Calcium (8.5-10.1) mg/dL Total Bilirubin (0.2-1.0) mg/dL AST (15-37) IU/L ALT (14-63) IU/L Alkaline Phosphatase (46-116) U/L Total Protein (6.4-8.2) g/dL Albumin (3.4-5.0) g/dL Globulin (2.6-4.0) g/dL Albumin/Globulin Ratio (0.9-1.6) Blood Type A NEGATIVE Antibody Screen NEGATIVE Meds: Medications Generic Name Dose Route Start Last Admin Trade Name Debbi PRN Reason Stop Dose Admin Lactated Ringer's 1,000 mls @ 999 mls/hr 02/10/20 00:21 02/10/20 00:24 Ringers, Lactated IV 02/10/20 01:21 999 mls/hr NOW STA Administration Sodium Chloride 10 ml 02/09/20 21:43 02/09/20 21:46 Saline Flush FLUSH 10 ml ASDIRECTED PRN Administration Keep Vein Open Sodium Chloride 2.5 ml 02/09/20 21:43 02/09/20 21:46 Saline Flush FLUSH 2.5 ml ASDIRECTED PRN Administration Keep Vein Open Discontinued Medications Generic Name Dose Route Start Last Admin Trade Name Debbi PRN Reason Stop Dose Admin Tranexamic Acid 1,000 mg/ 110 mls @ 600 mls/hr 02/09/20 21:43 02/09/20 21:50 Sodium Chloride IV 02/09/20 21:53 600 mls/hr ONETIME ONE Administration Tranexamic Acid 1,000 mg/ 110 mls @ 600 mls/hr 02/09/20 21:53 02/09/20 22:26 Sodium Chloride IV 02/09/20 22:03 600 mls/hr ONETIME ONE Administration Lactated Ringer's 1,000 mls @ 999 mls/hr 02/09/20 21:53 02/09/20 22:00 Ringers, Lactated IV 02/09/20 22:53 999 mls/hr .BOLUS ONE Administration Tranexamic Acid 1,000 mg/ 110 mls @ 600 mls/hr 02/09/20 22:39 02/09/20 22:44 Sodium Chloride IV 02/09/20 22:49 600 mls/hr ONETIME ONE Administration Pantoprazole Sodium 80 mg/ 20 mls @ 420 mls/hr 02/09/20 23:07 02/09/20 23:13 Sodium Chloride IVPUSH 02/09/20 23:09 420 mls/hr ONETIME ONE Administration Ceftriaxone Sodium/Dextrose 1 50 mls @ 100 mls/hr 02/09/20 23:25 02/09/20 23:45 gm/ Premix IV 02/09/20 23:54 100 mls/hr ONETIME ONE Administration Octyl Cyanoacrylate 1 applic 02/09/20 22:17 02/09/20 22:26 Dermabond Advance TOP 02/09/20 22:18 1 applic ONETIME ONE Administration Octyl Cyanoacrylate Confirm 02/09/20 22:18 02/09/20 22:27 Dermabond Advance Administered 02/09/20 22:19 Not Given Dose 1 applic .ROUTE .STK-MED ONE Tranexamic Acid Confirm 02/09/20 21:44 02/09/20 21:53 Cyklokapron Administered 02/09/20 21:45 Not Given Dose 1,000 mg .ROUTE .STK-MED ONE Tranexamic Acid Confirm 02/09/20 22:25 02/09/20 22:40 Cyklokapron Administered 02/09/20 22:26 Not Given Dose 1,000 mg .ROUTE .STK-MED ONE Tranexamic Acid Confirm 02/09/20 22:38 02/09/20 22:45 Cyklokapron Administered 02/09/20 22:39 Not Given Dose 1,000 mg .ROUTE .STK-MED ONE Departure - Departure Time of Disposition: 23:26 Disposition: DC/Tfer to Acute Hospital 02 Condition: Good Clinical Impression: Oral bleeding, Melena Cirrhosis of liver Qualifiers: Hepatic cirrhosis type: alcoholic cirrhosis Ascites presence: with ascites Qualified Code(s): K70.31 - Alcoholic cirrhosis of liver with ascites - Discharge Information Referrals: PCP,None [Primary Care Provider] - Forms: ED Department Discharge Sepsis Event Note (ED) - Evaluation Sepsis Screening Result: No Definite Risk - Focused Exam Vital Signs: Vital Signs Temp Temp Pulse Resp BP Pulse Ox 02/10/20 00:40 108 H 18 118/53 L 97 02/10/20 00:24 110 H 18 117/36 L 96 02/09/20 23:47 36.9 C 106 H 20 100/45 L 96 02/09/20 22:10 105 H 18 134/64 97 02/09/20 21:35 37.4 C 110 H 16 111/72 96 - My Orders Last 24 Hours: My Active Orders 02/09/20 Dinner Nothing Per Oral Diet [DIET] 02/09/20 21:43 Cardiac Monitoring [RC] . DIRECTED Pulse Oximetry [RC] ASDIRECTED Sodium Chloride 0.9% [Saline Flush] 10 ml FLUSH ASDIRECTED PRN Sodium Chloride 0.9% [Saline Flush] 2.5 ml FLUSH ASDIRECTED PRN Saline Lock Insert [OM.PC] Stat 02/10/20 00:21 Lactated Ringers [Ringers, Lactated] 1,000 ml IV NOW - Assessment/Plan Last 24 Hours: My Active Orders 02/09/20 Dinner Nothing Per Oral Diet [DIET] 02/09/20 21:43 Cardiac Monitoring [RC] . DIRECTED Pulse Oximetry [RC] ASDIRECTED Sodium Chloride 0.9% [Saline Flush] 10 ml FLUSH ASDIRECTED PRN Sodium Chloride 0.9% [Saline Flush] 2.5 ml FLUSH ASDIRECTED PRN Saline Lock Insert [OM.PC] Stat 02/10/20 00:21 Lactated Ringers [Ringers, Lactated] 1,000 ml IV NOW
[2020-02-09] MEDS ORDERED: Octyl 2-Cyanoacrylate 1 Tube TOP ONE (22:17)
[2020-02-09] MEDS ORDERED: Octyl 2-Cyanoacrylate 1 Tube ONE (22:18)
[2020-02-09 22:21] LABS: POTASSIUM,K 4.3 mmol/L (3.5-5.1)
[2020-02-09] MEDS ORDERED: Pantoprazole 80 MG in Sodium Chloride 0.9% 20 ML IVPUSH ONE (23:07)
[2020-02-09] MEDS ORDERED: cefTRIAXone 1 GM in Premix Bag 1 BAG IV ONE (23:25)
[2020-02-10] MEDS ORDERED: Lactated Ringers 1,000 ML IV STA (00:21)
== END 2020-02-10 01:10 ==
LOC: MW.ED 21:28
DX: K70.31 Alcoholic cirrhosis of liver with ascites (principal); K13.79 Other lesions of oral mucosa; K92.1 Melena; J44.9 Chronic obstructive pulmonary disease, unspecified; F17.210 Nicotine dependence, cigarettes, uncomplicated; I10 Essential (primary) hypertension; Z86.19 Personal history of other infectious and parasitic diseases; Z79.899 Other long term (current) drug therapy
CPT/HCPCS: 36415; 80053; 83605; 85025; 85610; 86850; 86900; 86901; 96361; 96365; 96366; 96367; 96375; 96376; 99284; A9270; C9113; J0696; J7120

== ENCOUNTER 2020-02-19 19:26 | Emergency (ER) | payer OTHER ==
--- NOTE | 2020-02-19 20:00 | EDM.PDOC ---
ED HPI GENERAL MEDICAL PROBLEM - General Chief Complaint: Abdominal Pain Stated Complaint: possibly needs to be tapped Time Seen by Provider: 02/19/20 19:40 Source of Information: Reports: Patient History Limitations: Reports: No Limitations - History of Present Illness INITIAL COMMENTS - FREE TEXT/NARRATIVE: Patient is a 45-year-old male with a history of liver cirrhosis and ascites who presents today for abdominal distention. Patient states that he last had his belly tapped on Thursday and was told he should have a paracentesis done weekly. Patient presents today because he has a day for drinks that fluids but has not put out much fluid today and he believes it is clogged. Patient also reports some abdominal tenderness on the right and left side. Patient denies any fevers or chills but does have a chronic cough that has had some time no other testing positive for Covid. Abdomen Pain Score (Numeric/FACES): 8 - Related Data Allergies Allergy/AdvReac Type Severity Reaction Status Date / Time No Known Allergies Allergy Verified 02/19/20 19:48 Home Meds: Home Meds Albuterol Sulfate [Proair Hfa] 2 puff INH ASDIRECTED PRN 10/23/17 [History] Budesonide/Formoterol [Symbicort 160-4.5 MCG] 1 puff INH ASDIRECTED 02/17/19 [History] Bumetanide 1 mg PO BID 02/07/20 [History] Folic Acid 1 mg PO DAILY 02/07/20 [History] Lactulose [Cephulac] 20 gm PO TID 02/07/20 [History] Naltrexone 50 mg PO DAILY 02/07/20 [History] Omeprazole 20 mg PO DAILY 02/07/20 [History] Prazosin HCl [Prazosin] 1 mg PO BEDTIME 02/07/20 [History] Rifaximin [Xifaxan] 550 mg PO BID 02/07/20 [History] Spironolactone [Aldactone] 100 mg PO DAILY 02/07/20 [History] Thiamine HCl [B-1] 300 mg PO BID 02/07/20 [History] diphenhydrAMINE [Benadryl] 25 mg PO BEDTIME 02/07/20 [History] Past Medical History HEENT History: Reports: None Cardiovascular History: Reports: None Respiratory History: Reports: COPD, Other (See Below) Other Respiratory History: on inhaler Gastrointestinal History: Reports: Cirrhosis, Jaundice Musculoskeletal History: Reports: Back Pain, Chronic Other Musculoskeletal History: bulging discs per PT. Sciatic issues Psychiatric History: Reports: Addiction, PTSD Endocrine/Metabolic History: Reports: None Insulin Pump Model and Blasting Helper: none Hematologic History: Reports: None Immunologic History: Reports: None Oncologic (Cancer) History: Reports: None - Infectious Disease History Infectious Disease History: Reports: Novel Coronavirus, Other (See Below) Other Infectious Disease History: covid-19 - Past Surgical History Head Surgeries/Procedures: Reports: None Respiratory Surgical History: Reports: None Other GI Surgeries/Procedures: hx ulcer. Abd taping removal 5000ml fluid 02/03/2020 Oncologic Surgical History: Reports: None Social & Family History - Family History Family Medical History: No Pertinent Family History - Caffeine Use Caffeine Use: Reports: None Caffeine Use Comment: cup of coffee this am ED ROS GENERAL - Review of Systems Review Of Systems: See Below Constitutional: Reports: No Symptoms HEENT: Reports: No Symptoms Respiratory: Reports: No Symptoms Cardiovascular: Reports: No Symptoms Endocrine: Reports: No Symptoms GI/Abdominal: Reports: Abdominal Pain : Reports: No Symptoms Musculoskeletal: Reports: No Symptoms Skin: Reports: No Symptoms Neurological: Reports: No Symptoms Psychiatric: Reports: No Symptoms Hematologic/Lymphatic: Reports: No Symptoms Immunologic: Reports: No Symptoms ED EXAM, GENERAL - Physical Exam Exam: See Below Exam Limited By: No Limitations General Appearance: Alert, WD/WN Eye Exam: Bilateral Eye: EOMI, PERRL Throat/Mouth: Normal Inspection Neck: Normal Inspection Respiratory/Chest: No Respiratory Distress, Lungs Clear, Normal Breath Sounds Cardiovascular: Normal Peripheral Pulses, Regular Rate, Rhythm GI/Abdominal: Distended, Tender Neurological: Alert, Oriented, Normal Cognition Course - Vital Signs Last Recorded V/S: Last Vital Signs Temp 98 F 02/19/20 19:35 Pulse 110 H 02/19/20 19:35 Resp 20 02/19/20 19:35 BP 113/52 L 02/19/20 19:35 Pulse Ox 97 02/19/20 19:35 - Orders/Labs/Meds Orders: Active Orders 24 hr Category Date Time Status Sodium Chloride 0.9% [Normal Saline] 500 ml Med 02/19/20 20:30 Active IV .BOLUS cefTRIAXone [Rocephin in Dextrose,Iso-Osm 2 GM/50 ML] 2 Med 02/19/20 20:28 Active gm Premix Bag 1 bag IV ONETIME Medication Orders Sodium Chloride (Normal Saline) 500 mls @ 1,000 mls/hr IV .BOLUS JANA Last Admin: 02/19/20 20:52 Dose: 1,000 mls/hr Documented by: PREETI Ceftriaxone Sodium/Dextrose 2 (gm/ Premix) 50 mls @ 100 mls/hr IV ONETIME ONE Stop: 02/19/20 20:57 Last Admin: 02/19/20 20:53 Dose: 100 mls/hr Documented by: PREETI Labs: Laboratory Tests 02/19/20 02/19/20 02/19/20 Range/Units 19:25 19:25 19:25 WBC 21.62 H (4.0-11.0) K/uL RBC 3.00 L (4.50-5.90) M/uL Hgb 9.6 L (13.0-17.0) g/dL Hct 28.3 L (38.0-50.0) % MCV 94.3 (80.0-98.0) fL MCH 32.0 (27.0-32.0) pg MCHC 33.9 (31.0-37.0) g/dL RDW Std Deviation 69.4 H (28.0-62.0) fl RDW Coeff of Monster 21 H (11.0-15.0) % Plt Count 92 L (150-400) K/uL MPV 11.70 (7.40-12.00) fL Add Manual Diff YES Neutrophils % (Manual) 88 H (48.0-80.0) % Lymphocytes % (Manual) 10 L (16.0-40.0) % Monocytes % (Manual) 1 (0.0-15.0) % Eosinophils % (Manual) 1 (0.0-7.0) % Nucleated RBC % 0.0 /100WBC Absolute Seg Neuts 19.0 H (1.4-5.7) Lymphocytes # (Manual) 2.2 (0.6-2.4) Monocytes # (Manual) 0.2 (0.0-0.8) Eosinophils # (Manual) 0.2 (0.0-0.7) Nucleated RBCs # 0 K/uL INR 1.95 APTT (18.6-31.3) SEC Lactate 2.7 H* (0.20-2.00) mmol/L Sodium (136-148) mmol/L Potassium (3.5-5.1) mmol/L Chloride (98-107) mmol/L Carbon Dioxide (21.0-32.0) mmol/L BUN (7.0-18.0) mg/dL Creatinine (0.8-1.3) mg/dL Est Cr Clr Drug Dosing mL/min Estimated GFR (MDRD) ml/min Glucose (74-106) mg/dL Calcium (8.5-10.1) mg/dL Magnesium (1.8-2.4) mg/dL Total Bilirubin (0.2-1.0) mg/dL AST (15-37) IU/L ALT (14-63) IU/L Alkaline Phosphatase (46-116) U/L Ammonia (19-54) ug/dL Creatine Kinase (26-308) U/L Total Protein (6.4-8.2) g/dL Albumin (3.4-5.0) g/dL Globulin (2.6-4.0) g/dL Albumin/Globulin Ratio (0.9-1.6) Lipase (73-393) U/L 02/19/20 02/19/20 02/19/20 Range/Units 19:25 19:25 19:25 WBC (4.0-11.0) K/uL RBC (4.50-5.90) M/uL Hgb (13.0-17.0) g/dL Hct (38.0-50.0) % MCV (80.0-98.0) fL MCH (27.0-32.0) pg MCHC (31.0-37.0) g/dL RDW Std Deviation (28.0-62.0) fl RDW Coeff of Monster (11.0-15.0) % Plt Count (150-400) K/uL MPV (7.40-12.00) fL Add Manual Diff Neutrophils % (Manual) (48.0-80.0) % Lymphocytes % (Manual) (16.0-40.0) % Monocytes % (Manual) (0.0-15.0) % Eosinophils % (Manual) (0.0-7.0) % Nucleated RBC % /100WBC Absolute Seg Neuts (1.4-5.7) Lymphocytes # (Manual) (0.6-2.4) Monocytes # (Manual) (0.0-0.8) Eosinophils # (Manual) (0.0-0.7) Nucleated RBCs # K/uL INR APTT 30.9 (18.6-31.3) SEC Lactate (0.20-2.00) mmol/L Sodium 130 L (136-148) mmol/L Potassium 3.8 (3.5-5.1) mmol/L Chloride 96 L (98-107) mmol/L Carbon Dioxide 24.4 (21.0-32.0) mmol/L BUN 20 H (7.0-18.0) mg/dL Creatinine 1.6 H (0.8-1.3) mg/dL Est Cr Clr Drug Dosing 62.10 mL/min Estimated GFR (MDRD) 47.0 ml/min Glucose 119 H (74-106) mg/dL Calcium 7.4 L (8.5-10.1) mg/dL Magnesium 1.6 L (1.8-2.4) mg/dL Total Bilirubin 8.1 H (0.2-1.0) mg/dL AST 102 H (15-37) IU/L ALT 69 H (14-63) IU/L Alkaline Phosphatase 113 (46-116) U/L Ammonia <17 L (19-54) ug/dL Creatine Kinase 76 (26-308) U/L Total Protein 6.2 L (6.4-8.2) g/dL Albumin 1.8 L (3.4-5.0) g/dL Globulin 4.4 H (2.6-4.0) g/dL Albumin/Globulin Ratio 0.4 L (0.9-1.6) Lipase 339 (73-393) U/L Meds: Medications Generic Name Dose Route Start Last Admin Trade Name Freq PRN Reason Stop Dose Admin Sodium Chloride 500 mls @ 1,000 mls/hr 02/19/20 20:30 02/19/20 20:52 Normal Saline IV 1,000 mls/hr .BOLUS JANA Administration Ceftriaxone Sodium/Dextrose 2 50 mls @ 100 mls/hr 02/19/20 20:28 02/19/20 20:53 gm/ Premix IV 02/19/20 20:57 100 mls/hr ONETIME ONE Administration Discontinued Medications Generic Name Dose Route Start Last Admin Trade Name Debbi PRN Reason Stop Dose Admin Acetaminophen 650 mg 02/19/20 20:27 Tylenol PO 02/19/20 20:28 NOW ONE - Re-Assessments/Exams Free Text/Narrative Re-Assessment/Exam: 02/19/20 20:56 Turn for SBP patient will be given 2 g of ceftriaxone. We spoke to Aj Diop we will set the patient up with Dr. Narvaez Departure - Departure Time of Disposition: 20:57 Disposition: DC/Tfer to [facility] 02 Condition: Good Clinical Impression: SBP (spontaneous bacterial peritonitis) - Discharge Information Referrals: Christy Monterroso MD [Primary Care Provider] - Forms: ED Department Discharge Sepsis Event Note (ED) - Evaluation Sepsis Screening Result: No Definite Risk - Focused Exam Vital Signs: Vital Signs Temp Pulse Resp BP Pulse Ox 02/19/20 19:35 98 F 110 H 20 113/52 L 97 - My Orders Last 24 Hours: My Active Orders 02/19/20 20:28 cefTRIAXone [Rocephin in Dextrose,Iso-Osm 2 GM/50 ML] 2 gm Premix Bag 1 bag IV ONETIME 02/19/20 20:30 Sodium Chloride 0.9% [Normal Saline] 500 ml IV .BOLUS - Assessment/Plan Last 24 Hours: My Active Orders 02/19/20 20:28 cefTRIAXone [Rocephin in Dextrose,Iso-Osm 2 GM/50 ML] 2 gm Premix Bag 1 bag IV ONETIME 02/19/20 20:30 Sodium Chloride 0.9% [Normal Saline] 500 ml IV .BOLUS Assessment:: Is a 45-year-old male with history of liver cirrhosis and ascites presents today for vincent distention and tenderness. There is discomfort concern for SBP. Patient does have a bag to the side of his belly that should be draining the ascites but has not put out much fluid today per patient. Will give antibiotics and likely transfer to patient's leather coverer for further care.
[2020-02-19 20:12] LABS: CARBON DIOXIDE,CO2 24.4 mmol/L (21.0-32.0); POTASSIUM,K 3.8 mmol/L (3.5-5.1)
[2020-02-19] MEDS ORDERED: Acetaminophen 325 MG Tab PO ONE (20:27)
[2020-02-19] MEDS ORDERED: cefTRIAXone 2 GM in Premix Bag 1 BAG IV ONE (20:28)
[2020-02-19] MEDS ORDERED: Sodium Chloride 0.9% 500 ML IV SCH (20:30)
[2020-02-19] MEDS ORDERED: Sodium Chloride 0.9% 1,000 ML IV ONE (21:23)
--- NOTE | 2020-02-19 23:02 | CT ---
INDICATION: Abdominal pain and distension. CT ABDOMEN AND PELVIS WITHOUT CONTRAST TECHNIQUE: Multidetector CT imaging was performed through the abdomen and pelvis without intravenous contrast administration. Coronal and sagittal reconstructions were generated. COMPARISON: 01/13/2020 CT abdomen and pelvis. FINDINGS: Lower chest: New bilateral patchy ground-glass lung infiltrates likely representing atypical pneumonia, possibly COVID-19. New tiny bilateral pleural effusions. Coronary artery calcification and/or stent. Liver: Liver morphology suggesting cirrhosis. Diffusely diminished liver density consistent with fatty infiltration. Venous collaterals throughout the upper abdomen and in the anterior abdominal wall consistent with portal venous hypertension. Gallbladder and bile ducts: Calcifications in the gallbladder neck region consistent with gallstones, as before. Faint density elsewhere within the gallbladder lumen may represent vicariously excreted contrast from a recent contrast-enhanced exam. No biliary dilation identified. Pancreas: Unremarkable. Spleen: Unchanged mild splenomegaly. Adrenals: No nodules or masses. Kidneys, ureters, and urinary bladder: No urinary tract stones identified. No renal masses or hydronephrosis. Diffuse mild wall thickening of the urinary bladder. Gastrointestinal tract and abdominal wall: Limited evaluation of the bowel due to ascites and lack of IV contrast. No definite bowel obstruction. Diffuse subcutaneous edema over the abdomen and upper thighs, increased compared to the previous exam. Vascular structures: Normal for age. Peritoneum: Large amount of ascites throughout the abdomen and pelvis, slightly increased compared to the previous exam. No free air identified. Lymph nodes: No pathologically enlarged nodes identified. Reproductive organs: No pelvic masses. Bones: Normal for age. IMPRESSION: 1. Limited evaluation of the bowel due to ascites and lack of IV contrast. No definite bowel obstruction. 2. Large amount of ascites throughout the abdomen and pelvis, increased compared to the previous exam. 3. Cirrhosis with portal venous hypertension. 4. New patchy ground-glass infiltrates in the lower lungs, most likely representing atypical pneumonia such as COVID-19. 5. New tiny bilateral pleural effusions. 6. Increased diffuse subcutaneous edema. 7. Cholelithiasis. GREY COLUNGA MD [employer] Dictated by Dejuan Colunga MD @ 02/19/2020 10:59:56 PM Dictated by: Dejuan Colunga MD @ 02/19/2020 23:01:39 (Electronically Signed)
== END 2020-02-19 22:15 ==
LOC: MW.ED 19:26
DX: K65.2 Spontaneous bacterial peritonitis (principal); B96.89 Other specified bacterial agents as the cause of diseases classified elsewhere; K74.60 Unspecified cirrhosis of liver; J44.9 Chronic obstructive pulmonary disease, unspecified; Z79.899 Other long term (current) drug therapy; Z86.19 Personal history of other infectious and parasitic diseases
CPT/HCPCS: 36415; 74176; 80053; 82140; 82550; 83605; 83690; 83735; 85025; 85610; 85730; 96365; 99285; A9270; J0696; J7040; 99283

== ENCOUNTER 2020-03-07 10:21 | Emergency (ER) | payer OTHER ==
--- NOTE | 2020-03-07 10:50 | EDM.PDOC ---
ED HPI GENERAL MEDICAL PROBLEM - General Chief Complaint: Gastrointestinal Problem Stated Complaint: POSSIBLE INFECTION Time Seen by Provider: 03/07/20 10:24 Source of Information: Reports: Patient History Limitations: Reports: No Limitations - History of Present Illness INITIAL COMMENTS - FREE TEXT/NARRATIVE: Is a 45-year-old male with a history of liver cirrhosis that requires frequent paracentesis. Patient states that this morning he woke up and has vomited 5 times. Patient dates for the past few days has had some vomiting. Patient denies any fever chills he does not have any abdominal pain outside his baseline pain. Patient denies any abdominal distention as well. Patient denies eating new foods or new restaurants. Patient last had a paracentesis on February 26. Abdominal Pain Score (Numeric/FACES): 7 - Related Data Allergies Allergy/AdvReac Type Severity Reaction Status Date / Time No Known Allergies Allergy Verified 03/07/20 10:34 Home Meds: Home Meds Albuterol Sulfate [Proair Hfa] 2 puff INH ASDIRECTED PRN 10/23/17 [History] Budesonide/Formoterol [Symbicort 160-4.5 MCG] 1 puff INH ASDIRECTED 02/17/19 [History] Bumetanide 1 mg PO BID 02/07/20 [History] Folic Acid 1 mg PO DAILY 02/07/20 [History] Lactulose [Cephulac] 20 gm PO TID 02/07/20 [History] Naltrexone 50 mg PO DAILY 02/07/20 [History] Omeprazole 20 mg PO DAILY 02/07/20 [History] Prazosin HCl [Prazosin] 1 mg PO BEDTIME 02/07/20 [History] Rifaximin [Xifaxan] 550 mg PO BID 02/07/20 [History] Spironolactone [Aldactone] 100 mg PO DAILY 02/07/20 [History] Thiamine HCl [B-1] 300 mg PO BID 02/07/20 [History] diphenhydrAMINE [Benadryl] 25 mg PO BEDTIME 02/07/20 [History] Past Medical History HEENT History: Reports: Other (See Below) Other HEENT History: Oral Bleeding Cardiovascular History: Reports: None Respiratory History: Reports: COPD, Other (See Below) Other Respiratory History: on inhaler Gastrointestinal History: Reports: Cirrhosis, Jaundice Genitourinary History: Reports: None Musculoskeletal History: Reports: Back Pain, Chronic Other Musculoskeletal History: bulging discs per PT. Sciatic issues Neurological History: Reports: None Psychiatric History: Reports: Addiction, PTSD Endocrine/Metabolic History: Reports: None Insulin Pump Model and Director Electrical Engineering: None Hematologic History: Reports: None Immunologic History: Reports: None Oncologic (Cancer) History: Reports: None Dermatologic History: Reports: None - Infectious Disease History Infectious Disease History: Reports: Novel Coronavirus, Other (See Below) Other Infectious Disease History: covid-19 - Past Surgical History Head Surgeries/Procedures: Reports: None HEENT Surgical History: Reports: None Respiratory Surgical History: Reports: None GI Surgical History: Reports: Colostomy Other GI Surgeries/Procedures: hx ulcer. Abd taping removal 5000ml fluid 2019 Oncologic Surgical History: Reports: None Social & Family History - Family History Family Medical History: No Pertinent Family History - Tobacco Use Tobacco Use Status *Q: Never Tobacco User - Caffeine Use Caffeine Use: Reports: None Caffeine Use Comment: cup of coffee this am - Recreational Drug Use Recreational Drug Use: No ED ROS GENERAL - Review of Systems Review Of Systems: See Below Constitutional: Reports: No Symptoms HEENT: Reports: No Symptoms Respiratory: Reports: No Symptoms Cardiovascular: Reports: No Symptoms Endocrine: Reports: No Symptoms GI/Abdominal: Reports: Vomiting : Reports: No Symptoms Musculoskeletal: Reports: No Symptoms Skin: Reports: No Symptoms Neurological: Reports: No Symptoms Psychiatric: Reports: No Symptoms Hematologic/Lymphatic: Reports: No Symptoms Immunologic: Reports: No Symptoms ED EXAM, GENERAL - Physical Exam Exam: See Below Exam Limited By: No Limitations General Appearance: Alert, WD/WN, No Apparent Distress Respiratory/Chest: No Respiratory Distress, Lungs Clear Cardiovascular: Normal Peripheral Pulses, Regular Rate, Rhythm GI/Abdominal: Normal Bowel Sounds, Soft, Non-Tender Back Exam: Full Range of Motion Extremities: Normal Range of Motion Neurological: Alert, Oriented, Normal Cognition Course - Vital Signs Last Recorded V/S: Last Vital Signs Temp 98.3 F 03/07/20 10:34 Pulse 91 03/07/20 12:36 Resp 16 03/07/20 12:36 BP 93/50 L 03/07/20 12:36 Pulse Ox 97 03/07/20 12:36 - Orders/Labs/Meds Orders: Active Orders 24 hr Category Date Time Status Magnesium Sulfate [Magnesium Sulfate 50%] 1 gm Med 03/07/20 12:00 Active Sodium Chloride 0.9% [Normal Saline] 50 ml IV ONETIME Sodium Chloride 0.9% [Normal Saline] 1,000 ml Med 03/07/20 11:45 Active IV ASDIRECTED Medication Orders Sodium Chloride (Normal Saline) 1,000 mls @ 1,000 mls/hr IV ASDIRECTED JANA Last Admin: 03/07/20 11:47 Dose: 1,000 mls/hr Documented by: [id number] Magnesium Sulfate 1 gm/ Sodium (Chloride) 52 mls @ 104 mls/hr IV ONETIME JANA Stop: 03/07/20 14:00 Last Admin: 03/07/20 12:53 Dose: 104 mls/hr Documented by: EITAN Labs: Laboratory Tests 03/07/20 03/07/20 03/07/20 Range/Units 10:35 10:35 10:35 WBC 8.80 (4.0-11.0) K/uL RBC 2.79 L (4.50-5.90) M/uL Hgb 8.5 L (13.0-17.0) g/dL Hct 25.4 L (38.0-50.0) % MCV 91.0 (80.0-98.0) fL MCH 30.5 (27.0-32.0) pg MCHC 33.5 (31.0-37.0) g/dL RDW Std Deviation 61.3 (28.0-62.0) fl RDW Coeff of Monster 18 H (11.0-15.0) % Plt Count 45 L (150-400) K/uL Add Manual Diff YES Neutrophils % (Manual) 63 (48.0-80.0) % Lymphocytes % (Manual) 22 (16.0-40.0) % Monocytes % (Manual) 10 (0.0-15.0) % Eosinophils % (Manual) 2 (0.0-7.0) % Basophils % (Manual) 2 H (0.0-1.5) % Nucleated RBC % 0.0 /100WBC Absolute Seg Neuts 5.5 (1.4-5.7) Lymphocytes # (Manual) 1.9 (0.6-2.4) Monocytes # (Manual) 0.9 H (0.0-0.8) Eosinophils # (Manual) 0.2 (0.0-0.7) Basophils # (Manual) 0.2 H (0.0-0.1) Nucleated RBCs # 0 K/uL Platelet Estimate DECREASED Poikilocytosis 3+ MARKED Target Cells 1+ SLIGHT Acanthocytes (Spur) 3+ MARKED Schistocytes 1+ SLIGHT INR 1.82 APTT 29.6 (18.6-31.3) SEC Lactate (0.20-2.00) mmol/L Sodium 134 L (136-148) mmol/L Potassium 3.1 L (3.5-5.1) mmol/L Chloride 98 (98-107) mmol/L Carbon Dioxide 27.3 (21.0-32.0) mmol/L BUN 6 L (7.0-18.0) mg/dL Creatinine 1.1 (0.8-1.3) mg/dL Est Cr Clr Drug Dosing 90.32 mL/min Estimated GFR (MDRD) > 60.0 ml/min Glucose 133 H (74-106) mg/dL Calcium 8.2 L (8.5-10.1) mg/dL Magnesium 1.4 L (1.8-2.4) mg/dL Total Bilirubin 6.9 H (0.2-1.0) mg/dL AST 63 H (15-37) IU/L ALT 36 (14-63) IU/L Alkaline Phosphatase 106 (46-116) U/L Ammonia (19-54) ug/dL Creatine Kinase 106 (26-308) U/L Total Protein 6.8 (6.4-8.2) g/dL Albumin 2.1 L (3.4-5.0) g/dL Globulin 4.7 H (2.6-4.0) g/dL Albumin/Globulin Ratio 0.5 L (0.9-1.6) Lipase 239 (73-393) U/L Slides for Path Review 03/07/20 03/07/20 03/07/20 Range/Units 11:03 11:03 12:45 WBC (4.0-11.0) K/uL RBC (4.50-5.90) M/uL Hgb (13.0-17.0) g/dL Hct (38.0-50.0) % MCV (80.0-98.0) fL MCH (27.0-32.0) pg MCHC (31.0-37.0) g/dL RDW Std Deviation (28.0-62.0) fl RDW Coeff of Monster (11.0-15.0) % Plt Count (150-400) K/uL Add Manual Diff Neutrophils % (Manual) (48.0-80.0) % Lymphocytes % (Manual) (16.0-40.0) % Monocytes % (Manual) (0.0-15.0) % Eosinophils % (Manual) (0.0-7.0) % Basophils % (Manual) (0.0-1.5) % Nucleated RBC % /100WBC Absolute Seg Neuts (1.4-5.7) Lymphocytes # (Manual) (0.6-2.4) Monocytes # (Manual) (0.0-0.8) Eosinophils # (Manual) (0.0-0.7) Basophils # (Manual) (0.0-0.1) Nucleated RBCs # K/uL Platelet Estimate Poikilocytosis Target Cells Acanthocytes (Spur) Schistocytes INR APTT (18.6-31.3) SEC Lactate 2.6 H* 2.1 H* (0.20-2.00) mmol/L Sodium (136-148) mmol/L Potassium (3.5-5.1) mmol/L Chloride (98-107) mmol/L Carbon Dioxide (21.0-32.0) mmol/L BUN (7.0-18.0) mg/dL Creatinine (0.8-1.3) mg/dL Est Cr Clr Drug Dosing mL/min Estimated GFR (MDRD) ml/min Glucose (74-106) mg/dL Calcium (8.5-10.1) mg/dL Magnesium (1.8-2.4) mg/dL Total Bilirubin (0.2-1.0) mg/dL AST (15-37) IU/L ALT (14-63) IU/L Alkaline Phosphatase (46-116) U/L Ammonia <17 L (19-54) ug/dL Creatine Kinase (26-308) U/L Total Protein (6.4-8.2) g/dL Albumin (3.4-5.0) g/dL Globulin (2.6-4.0) g/dL Albumin/Globulin Ratio (0.9-1.6) Lipase (73-393) U/L Slides for Path Review Meds: Medications Generic Name Dose Route Start Last Admin Trade Name Freq PRN Reason Stop Dose Admin Sodium Chloride 1,000 mls @ 1,000 mls/hr 03/07/20 11:45 03/07/20 11:47 Normal Saline IV 1,000 mls/hr ASDIRECTED JANA Administration Magnesium Sulfate 1 gm/ Sodium 52 mls @ 104 mls/hr 03/07/20 12:00 03/07/20 12:53 Chloride IV 03/07/20 14:00 104 mls/hr ONETIME JANA Administration Discontinued Medications Generic Name Dose Route Start Last Admin Trade Name Freq PRN Reason Stop Dose Admin Sodium Chloride 1,000 mls @ 999 mls/hr 03/07/20 10:46 03/07/20 10:54 Normal Saline IV 03/07/20 11:46 999 mls/hr .BOLUS ONE Administration Magnesium Sulfate 1 gm in 25 mls @ 50 mls/hr 03/07/20 12:05 Magnesium Sulfate In Water Premix IV 03/07/20 12:34 ONETIME ONE Ondansetron HCl 4 mg 03/07/20 10:46 03/07/20 10:53 Zofran IVPUSH 03/07/20 10:47 4 mg ONETIME ONE Administration Potassium Chloride 40 meq 03/07/20 11:18 03/07/20 11:23 Potassium Chloride Solution PO 03/07/20 11:19 Not Given ONETIME ONE Potassium Chloride 40 meq 03/07/20 11:22 03/07/20 11:28 Potassium Chloride PO 03/07/20 11:23 40 meq ONETIME ONE Administration - Re-Assessments/Exams Free Text/Narrative Re-Assessment/Exam: 03/07/20 13:05 Patient was given 2 L of fluids. Patient also given Zofran and tolerated p.o. while in the ED. We repleted patient's magnesium and potassium as well. Patient feels a lot better than before. Patient is scheduled to see his GI doctor next week. Patient has no signs of infection and does not require a paracentesis today. Patient also has no abdominal pain. Patient will be discharged. Departure - Departure Time of Disposition: 13:06 Disposition: Home, Self-Care 01 Condition: Good Clinical Impression: Vomiting - Discharge Information *PRESCRIPTION DRUG MONITORING PROGRAM REVIEWED*: Not Applicable *COPY OF PRESCRIPTION DRUG MONITORING REPORT IN PATIENT SANA: Not Applicable Instructions: Nausea and Vomiting, Adult Referrals: PCP,None [Primary Care Provider] - Forms: ED Department Discharge Additional Instructions: The following information is given to patients seen in the emergency department who are being discharged to home. This information is to outline your options for follow-up care. We provide all patients seen in our emergency department with a follow-up referral. The need for follow-up, as well as the timing and circumstances, are variable depending upon the specifics of your emergency department visit. If you don't have a primary care physician on staff, we will provide you with a referral. We always advise you to contact your personal physician following an emergency department visit to inform them of the circumstance of the visit and for follow-up with them and/or the need for any referrals to a consulting specialist. The emergency department will also refer you to a specialist when appropriate. This referral assures that you have the opportunity for follow-up care with a specialist. All of these measure are taken in an effort to provide you with optimal care, which includes your follow-up. Under all circumstances we always encourage you to contact your private physician who remains a resource for coordinating your care. When calling for follow-up care, please make the office aware that this follow-up is from your recent emergency room visit. If for any reason you are refused follow-up, please contact the [facility] Emergency Department at and asked to speak to the emergency department charge nurse. Please follow up with your primary care physician. If you do not have a primary care physician, see below: [facility] [address] [place] [id number] [facility] [address] [place] [address] Please follow-up with your primary care physician and GI specialist. If you have any more complaints such as increased nausea not be able to tolerate food or water by mouth fevers chills please return to the ED immediately. Sepsis Event Note (ED) - Evaluation Sepsis Screening Result: No Definite Risk - Focused Exam Vital Signs: Vital Signs Temp Pulse Resp BP Pulse Ox 03/07/20 12:36 91 16 93/50 L 97 03/07/20 12:21 90 16 89/51 L 98 03/07/20 12:05 90 17 93/45 L 96 03/07/20 11:52 89 16 92/47 L 96 03/07/20 11:36 88 16 91/49 L 95 03/07/20 11:25 91 17 99/38 L 98 03/07/20 11:16 89 16 98/40 L 96 03/07/20 10:34 98.3 F 106 H 15 108/42 L 97 - My Orders Last 24 Hours: My Active Orders 03/07/20 11:45 Sodium Chloride 0.9% [Normal Saline] 1,000 ml IV ASDIRECTED 03/07/20 12:00 Magnesium Sulfate [Magnesium Sulfate 50%] 1 gm Sodium Chloride 0.9% [Normal Saline] 50 ml IV ONETIME - Assessment/Plan Last 24 Hours: My Active Orders 03/07/20 11:45 Sodium Chloride 0.9% [Normal Saline] 1,000 ml IV ASDIRECTED 03/07/20 12:00 Magnesium Sulfate [Magnesium Sulfate 50%] 1 gm Sodium Chloride 0.9% [Normal Saline] 50 ml IV ONETIME Assessment:: Patient is a 45-year-old male with a history of liver cirrhosis that requires frequent paracentesis presents today for vomiting. Patient abdomen is soft not distended as has been in previous visits. Will attempt to control patient's vomiting check liver enzymes and reassess.
[2020-03-07] MEDS: Ondansetron 4 MG/2 ML SDV IVPUSH ONE (10:53)
[2020-03-07] MEDS: Sodium Chloride 0.9% 1,000 ML IV ONE (10:54)
[2020-03-07 11:11] LABS: BLOOD UREA NITROGEN,BUN 6 mg/dL (7.0-18.0); CARBON DIOXIDE,CO2 27.3 mmol/L (21.0-32.0); CHLORIDE,CL 98 mmol/L (98-107); GLUCOSE RANDOM 133 mg/dL (74-106); LIPASE 239 U/L (73-393); POTASSIUM,K 3.1 mmol/L (3.5-5.1); SODIUM,NA 134 mmol/L (136-148)
[2020-03-07] MEDS: Potassium Chloride 10% 20 MEQ/15 ML Soln 15 ML UD Cup PO ONE (11:23)
[2020-03-07] MEDS: Potassium Chloride 10% 20 MEQ/15 ML Soln 30 ML UD Cup PO ONE (11:28)
[2020-03-07] MEDS ORDERED: Magnesium Sulfate (4.06 MEQ/ML) 5 GM/10 ML SDV IV STA (11:42)
[2020-03-07] MEDS: Sodium Chloride 0.9% 1,000 ML IV SCH (11:47)
[2020-03-07] MEDS: Magnesium Sulfate/Water 1 GM/25 ML BAG IV ONE (13:08)
== END 2020-03-07 13:35 | disposition home or self-care (01) ==
LOC: MW.ED 10:21
DX: R11.10 Vomiting, unspecified (principal); R10.9 Unspecified abdominal pain; J44.9 Chronic obstructive pulmonary disease, unspecified; Z79.899 Other long term (current) drug therapy
CPT/HCPCS: 36415; 80053; 82140; 82550; 83605; 83690; 83735; 85025; 85610; 85730; 96365; 96375; 99284; A9270; J2405; J3475; J7030; 99283

== ENCOUNTER 2020-06-06 09:50 | Emergency (ER) | payer OTHER ==
[2020-06-06] MEDS ORDERED: Ondansetron 4 MG/2 ML SDV IVPUSH ONE (10:12)
[2020-06-06] MEDS ORDERED: Sodium Chloride 0.9% 1,000 ML IV ONE (10:12)
--- NOTE | 2020-06-06 10:18 | EDM.PDOC ---
ED HPI GENERAL MEDICAL PROBLEM - General Chief Complaint: General Stated Complaint: NOT FEELING WELL AFTER SHOT Time Seen by Provider: 06/06/20 10:01 Source of Information: Reports: Patient History Limitations: Reports: No Limitations - History of Present Illness INITIAL COMMENTS - FREE TEXT/NARRATIVE: HISTORY AND PHYSICAL: History of present illness: Patient is a 45-year-old male who presents to the emergency room with complaints of feeling light headed, shortness of breath, one episode of vomiting and chest pain since this morning. He states he received his second COVID-19 vaccine yesterday and is concerned symptoms may be related to recent immunization. States the chest pain is generalized and mild/dull, does not radiate anywhere, does not improve or worsen with physical activity. Vague with his shortness of breath, stating he feels winded with ambulation or physical activity, describes this as mild as well. One episode of vomiting, this has resolved no nausea or vomiting since. Reports he feels like his lips and under eyes appear slightly swollen. No new exposures, foods or concerns of an allergic reaction. Patient does have a history of liver cirrhosis and does frequently require paracentesis. He has recently been to [facility], Dr. Bisi Reece, drained 1.5 L from his abdomen, perform endoscopy, liver ultrasound and lab work. Patient is supposed to go to [place] and review his results on 06/08/2020. Patient denies any fever, chills, headache, change in vision, syncope or near syncope. Denies any back pain, hemoptysis or cough. Denies any abdominal pain, diarrhea, constipation or dysuria. Has not noted any blood in urine or stool. Patient has been eating and drinking appropriately. Patient has a past medical history of COVID-19 (01/12), anemia, COPD, chronic back pain secondary to bulging discs, and PTSD. Review of systems: As per history of present illness and below otherwise all systems reviewed and negative. Past medical history: As per history of present illness and as reviewed below otherwise noncontributory. Surgical history: As per history of present illness and as reviewed below otherwise noncontributory. Social history: See social history for further information Family history: As per history of present illness and as reviewed below otherwise noncontributory. Physical exam: General: Well developed and well nourished 45 year old male. Alert and orientated x 3. Nontoxic in appearance and in no acute distress. Vital signs are stable and have been reviewed by me. Nursing notes were reviewed. Accompanied by who is at bedside. HEENT: Atraumatic, normocephalic, pupils equal and reactive bilaterally, negative for conjunctival pallor. Mild bilateral scleral icterus. Tacky/dry mucous membranes moist, TMs normal bilaterally, throat clear, neck supple, nontender, trachea midline. No drooling or trismus noted. No meningeal signs. No hot potato voice noted. Lungs: Clear to auscultation bilaterally. No wheezes, rales, or rhonchi. Chest nontender. Normal work of breathing, no accessory muscles used. Heart: S1S2, regular rate and rhythm without overt murmur, gallops, or rubs. No JVD. No peripheral edema Abdomen: Soft, nondistended, nontender. No ascites noted. Normoactive bowel sounds. Negative for costovertebral tenderness. Pelvis: Stable nontender. Genitourinary/Rectal: Deferred. Skin: Skin slightly jaundice. Intact, warm, dry. No lesions or rashes noted. Hematologic: No petechiae or purpra. Mucosa appropriate color and normal nail bed color and refill. Extremities: Atraumatic, moves all extremities per self without difficulty or deficits, negative for cords or calf pain. Neurovascular unremarkable. Neuro: Awake, alert, oriented. Cranial nerves II through XII unremarkable. Cere bellum unremarkable. Motor and sensory unremarkable throughout. Exam nonfocal. Psychiatric: Mood and affect are appropriate. Normal thought process. Answering questions appropriately. Notes: *This patient was seen and evaluated during the 2019 SARS-CoV-2 novel coronavirus pandemic period. Community viral transmission is ongoing at time of this encounter and the emergency department is operating under pandemic response procedures. Negative chest. No acute or specific findings to explain chest pain. Some labs area slightly off, but this does appear to be better than his baseline. His symptoms are likely due to a reaction from his second COVID vaccine. Patient states he feels better and feels comfortable with going home. I did have Dr Carranza review the patient's labs/chart and see this patient as he has taken care of him in the past. He agrees that patient is stable and appropriate for discharge. I have talked with the patient about today's findings, in addition to providing specific details for plan of care. Reassessment at the time of disposition demonstrates that the patient is in no acute distress. The patient is stable for discharge, counseling was provided and we discussed in great detail signs and symptoms that would prompt them to return to the Emergency Department. Medication, follow up and supportive care measures were reviewed and discussed. Voices understanding and is agreeable to plan of care. Denies any further questions or concerns at this time. Diagnostics: CBC, CMP, UA, Lipase, Troponin, EKG, CXR, Ammonia, Lactate Therapeutics: NS at 250 mls/hr, Zofran, Lactulose Prescription: None Impression: Symptoms resulting from COVID-19 History of liver cirrhosis Plan: 1. You were evaluated today on an emergent basis. Your symptoms are like a reaction from your second COVID shot. If your symptoms should worsen, new symptoms develop or any of the signs and symptoms we discussed should arise please return to the emergency room or call 911 (if needed). 2. You can alternate Tylenol and ibuprofen as needed for pain and fever management. 3. We encourage you to follow up with your provider in [place] that you already have arranged for Thursday (06/08/2020) for re-evaluation and further care/management. Definitive disposition and diagnosis as appropriate pending reevaluation and review of above. Onset: Today Chest Pain Score (Numeric/FACES): 4 - Related Data Allergies Allergy/AdvReac Type Severity Reaction Status Date / Time No Known Allergies Allergy Verified 06/06/20 10:22 Home Meds: Home Meds Albuterol Sulfate [Proair Hfa] 2 puff INH ASDIRECTED PRN 10/23/17 [History] Budesonide/Formoterol [Symbicort 160-4.5 MCG] 2 puff INH BID 02/17/19 [History] Bumetanide 1 mg PO BID 02/07/20 [History] Folic Acid 1 mg PO DAILY 02/07/20 [History] Lactulose [Cephulac] 20 gm PO TID 02/07/20 [History] Omeprazole 20 mg PO ACBREAKFAST 02/07/20 [History] Prazosin HCl [Prazosin] 1 mg PO BEDTIME 02/07/20 [History] Rifaximin [Xifaxan] 550 mg PO BID 02/07/20 [History] Spironolactone [Aldactone] 100 mg PO DAILY 02/07/20 [History] Thiamine HCl [B-1] 300 mg PO BID 02/07/20 [History] diphenhydrAMINE [Benadryl] 25 mg PO BEDTIME 02/07/20 [History] Acetaminophen 1,000 mg PO Q4H PRN 06/06/20 [History] Furosemide [Lasix] 40 mg PO DAILY 06/06/20 [History] Naltrexone 50 mg PO DAILY 06/06/20 [History] traZODone 50 mg PO BEDTIME PRN 06/06/20 [History] Past Medical History HEENT History: Reports: Other (See Below) Other HEENT History: Oral Bleeding Cardiovascular History: Reports: None Respiratory History: Reports: COPD, Other (See Below) Other Respiratory History: on inhaler Gastrointestinal History: Reports: Cirrhosis, Jaundice Genitourinary History: Reports: None Musculoskeletal History: Reports: Back Pain, Chronic Other Musculoskeletal History: bulging discs per PT. Sciatic issues Neurological History: Reports: None Psychiatric History: Reports: Addiction, PTSD Endocrine/Metabolic History: Reports: None Insulin Pump Model and Visual Merchandising Assistant: None Hematologic History: Reports: None Immunologic History: Reports: None Oncologic (Cancer) History: Reports: None Dermatologic History: Reports: None - Infectious Disease History Infectious Disease History: Reports: Novel Coronavirus, Other (See Below) Other Infectious Disease History: covid-19 - Past Surgical History Head Surgeries/Procedures: Reports: None HEENT Surgical History: Reports: None Respiratory Surgical History: Reports: None GI Surgical History: Reports: Colostomy Other GI Surgeries/Procedures: hx ulcer. Abd taping removal 5000ml fluid 02/03/2020 Oncologic Surgical History: Reports: None Social & Family History - Family History Family Medical History: No Pertinent Family History - Caffeine Use Caffeine Use: Reports: None Caffeine Use Comment: cup of coffee this am ED ROS GENERAL - Review of Systems Review Of Systems: Comprehensive ROS is negative, except as noted in HPI. ED EXAM, GENERAL - Physical Exam Exam: See Below (See dictation) Course - Vital Signs Last Recorded V/S: Last Vital Signs Temp 98.1 F 06/06/20 10:12 Pulse 104 H 06/06/20 10:12 Resp 15 06/06/20 10:12 BP 97/48 L 06/06/20 10:12 Pulse Ox 99 06/06/20 10:12 - Orders/Labs/Meds Orders: Active Orders 24 hr Category Date Time Status EKG Documentation Completion [RC] STAT Care 06/06/20 10:12 Active UA RFX DIANA AND CULT IF INDIC [URIN] Stat Lab 06/06/20 10:12 Ordered Sodium Chloride 0.9% [Normal Saline] 1,000 ml Med 06/06/20 10:12 Active IV STAT Medication Orders Sodium Chloride (Normal Saline) 1,000 mls @ 250 mls/hr IV STAT ONE Stop: 06/06/20 14:11 Last Admin: 06/06/20 10:32 Dose: 250 mls/hr Documented by: [email or web address] Labs: Laboratory Tests 06/06/20 06/06/20 06/06/20 Range/Units 10:13 10:13 10:13 WBC 4.56 (4.0-11.0) K/uL RBC 3.06 L (4.50-5.90) M/uL Hgb 8.4 L (13.0-17.0) g/dL Hct 26.0 L (38.0-50.0) % MCV 85.0 (80.0-98.0) fL MCH 27.5 (27.0-32.0) pg MCHC 32.3 (31.0-37.0) g/dL RDW Std Deviation 66.1 H (28.0-62.0) fl RDW Coeff of Monster 22 H (11.0-15.0) % Plt Count 40 L (150-400) K/uL MPV 9.90 (7.40-12.00) fL Add Manual Diff YES Neutrophils % (Manual) 74 (48.0-80.0) % Lymphocytes % (Manual) 11 L (16.0-40.0) % Monocytes % (Manual) 13 (0.0-15.0) % Eosinophils % (Manual) 1 (0.0-7.0) % Basophils % (Manual) 1 (0.0-1.5) % Nucleated RBC % 0.0 /100WBC Absolute Seg Neuts 3.4 (1.4-5.7) Lymphocytes # (Manual) 0.5 L (0.6-2.4) Monocytes # (Manual) 0.6 (0.0-0.8) Eosinophils # (Manual) 0.0 (0.0-0.7) Basophils # (Manual) 0.0 (0.0-0.1) Nucleated RBCs # 0 K/uL Platelet Estimate DECREASED Poikilocytosis 2+ MODERATE Target Cells 1+ SLIGHT Acanthocytes (Spur) 1+ SLIGHT Lactate 1.6 (0.20-2.00) mmol/L Sodium 130 L (136-148) mmol/L Potassium 4.5 (3.5-5.1) mmol/L Chloride 99 (98-107) mmol/L Carbon Dioxide 23.2 (21.0-32.0) mmol/L BUN 12 (7.0-18.0) mg/dL Creatinine 1.2 (0.8-1.3) mg/dL Est Cr Clr Drug Dosing 82.80 mL/min Estimated GFR (MDRD) > 60.0 ml/min Glucose 129 H (74-106) mg/dL Calcium 7.6 L (8.5-10.1) mg/dL Total Bilirubin 5.4 H (0.2-1.0) mg/dL AST 49 H (15-37) IU/L ALT 27 (14-63) IU/L Alkaline Phosphatase 93 (46-116) U/L Ammonia (19-54) ug/dL Creatine Kinase 83 (26-308) U/L Troponin I < 0.050 (0.000-0.056) ng/mL Total Protein 6.8 (6.4-8.2) g/dL Albumin 2.3 L (3.4-5.0) g/dL Globulin 4.5 H (2.6-4.0) g/dL Albumin/Globulin Ratio 0.5 L (0.9-1.6) Lipase 248 (73-393) U/L Influenza Type A RNA (NEGATIVE) Influenza Type B RNA (NEGATIVE) SARS-CoV-2 RNA (HERNESTO) (NEGATIVE) 06/06/20 06/06/20 Range/Units 10:13 10:32 WBC (4.0-11.0) K/uL RBC (4.50-5.90) M/uL Hgb (13.0-17.0) g/dL Hct (38.0-50.0) % MCV (80.0-98.0) fL MCH (27.0-32.0) pg MCHC (31.0-37.0) g/dL RDW Std Deviation (28.0-62.0) fl RDW Coeff of Monster (11.0-15.0) % Plt Count (150-400) K/uL MPV (7.40-12.00) fL Add Manual Diff Neutrophils % (Manual) (48.0-80.0) % Lymphocytes % (Manual) (16.0-40.0) % Monocytes % (Manual) (0.0-15.0) % Eosinophils % (Manual) (0.0-7.0) % Basophils % (Manual) (0.0-1.5) % Nucleated RBC % /100WBC Absolute Seg Neuts (1.4-5.7) Lymphocytes # (Manual) (0.6-2.4) Monocytes # (Manual) (0.0-0.8) Eosinophils # (Manual) (0.0-0.7) Basophils # (Manual) (0.0-0.1) Nucleated RBCs # K/uL Platelet Estimate Poikilocytosis Target Cells Acanthocytes (Spur) Lactate (0.20-2.00) mmol/L Sodium (136-148) mmol/L Potassium (3.5-5.1) mmol/L Chloride (98-107) mmol/L Carbon Dioxide (21.0-32.0) mmol/L BUN (7.0-18.0) mg/dL Creatinine (0.8-1.3) mg/dL Est Cr Clr Drug Dosing mL/min Estimated GFR (MDRD) ml/min Glucose (74-106) mg/dL Calcium (8.5-10.1) mg/dL Total Bilirubin (0.2-1.0) mg/dL AST (15-37) IU/L ALT (14-63) IU/L Alkaline Phosphatase (46-116) U/L Ammonia 94 H (19-54) ug/dL Creatine Kinase (26-308) U/L Troponin I (0.000-0.056) ng/mL Total Protein (6.4-8.2) g/dL Albumin (3.4-5.0) g/dL Globulin (2.6-4.0) g/dL Albumin/Globulin Ratio (0.9-1.6) Lipase (73-393) U/L Influenza Type A RNA NEGATIVE (NEGATIVE) Influenza Type B RNA NEGATIVE (NEGATIVE) SARS-CoV-2 RNA (HERNESTO) NEGATIVE (NEGATIVE) Meds: Medications Generic Name Dose Route Start Last Admin Trade Name Freq PRN Reason Stop Dose Admin Sodium Chloride 1,000 mls @ 250 mls/hr 06/06/20 10:12 06/06/20 10:32 Normal Saline IV 06/06/20 14:11 250 mls/hr STAT ONE Administration Discontinued Medications Generic Name Dose Route Start Last Admin Trade Name Freq PRN Reason Stop Dose Admin Lactulose 20 gm 06/06/20 12:04 06/06/20 12:21 Lactulose Soln 10 Gm/15 Ml 15 Ml Ud Cup PO 06/06/20 12:05 20 gm ONETIME ONE Administration Ondansetron HCl 4 mg 06/06/20 10:12 06/06/20 10:32 Ondansetron 4 Mg/2 Ml Sdv IVPUSH 06/06/20 10:13 4 mg ONETIME ONE Administration Departure - Departure Time of Disposition: 12:14 Disposition: Home, Self-Care 01 Clinical Impression: Fatigue after COVID-19 vaccination, History of cirrhosis of liver - Discharge Information Instructions: Fatigue, Weakness, [id number] Referrals: Sadi Sampson SORTING MACHINE OPERATOR [Primary Care Provider] - Forms: ED Department Discharge Additional Instructions: The following information is given to patients seen in the emergency department who are being discharged to home. This information is to outline your options for follow-up care. We provide all patients seen in our emergency department with a follow-up referral. The need for follow-up, as well as the timing and circumstances, are variable depending upon the specifics of your emergency department visit. If you don't have a primary care physician on staff, we will provide you with a referral. We always advise you to contact your personal physician following an emergency department visit to inform them of the circumstance of the visit and for follow-up with them and/or the need for any referrals to a consulting specialist. The emergency department will also refer you to a specialist when appropriate. This referral assures that you have the opportunity for follow-up care with a specialist. All of these measure are taken in an effort to provide you with optimal care, which includes your follow-up. Under all circumstances we always encourage you to contact your private physician who remains a resource for coordinating your care. When calling for follow-up care, please make the office aware that this follow-up is from your recent emergency room visit. If for any reason you are refused follow-up, please contact the [facility] Emergency Department at and asked to speak to the emergency department charge nurse. [facility] [address] [place] [address] [facility] [address] [place] [address] Thank you for choosing the [facility] emergency department in [place] for your medical needs today. It was a pleasure caring for you. Today you were seen in the emergency department for viral illness 1. You were evaluated today on an emergent basis. Your symptoms are like a reaction from your second COVID 19 vaccination. If your symptoms should worsen, new symptoms develop or any of the signs and symptoms we discussed should arise please return to the emergency room or call 911 (if needed). 2. You can alternate Tylenol and ibuprofen as needed for pain and fever management. 3. We encourage you to follow up with your provider in [place] that you already have arranged for Thursday (06/08/2020) for re-evaluation and further care/management. Sepsis Event Note (ED) - Focused Exam Vital Signs: Vital Signs Temp Pulse Resp BP Pulse Ox 06/06/20 10:12 98.1 F 104 H 15 97/48 L 99 - My Orders Last 24 Hours: My Active Orders 06/06/20 10:12 EKG Documentation Completion [RC] STAT UA RFX DIANA AND CULT IF INDIC [URIN] Stat Sodium Chloride 0.9% [Normal Saline] 1,000 ml IV STAT - Assessment/Plan Last 24 Hours: My Active Orders 06/06/20 10:12 EKG Documentation Completion [RC] STAT UA RFX DIANA AND CULT IF INDIC [URIN] Stat Sodium Chloride 0.9% [Normal Saline] 1,000 ml IV STAT
--- NOTE | 2020-06-06 10:20 | PCM.EKG ---
#1 Interpretation EKG Date: 06/06/20 Time: 10:16 Rhythm: NSR Rate (Beats/Min): 97 ST-T: Normal
[2020-06-06 10:47] LABS: BLOOD UREA NITROGEN,BUN 12 mg/dL (7.0-18.0); CARBON DIOXIDE,CO2 23.2 mmol/L (21.0-32.0); CHLORIDE,CL 99 mmol/L (98-107); GLUCOSE RANDOM 129 mg/dL (74-106); LIPASE 248 U/L (73-393); POTASSIUM,K 4.5 mmol/L (3.5-5.1); SODIUM,NA 130 mmol/L (136-148)
--- NOTE | 2020-06-06 11:12 | CR ---
INDICATION: Chest pain TECHNIQUE: Chest 1 views COMPARISON: 02/07/2020 FINDINGS: Cardiovascular and mediastinum: Heart size and vasculature are normal in caliber and appearance. Lungs and pleural spaces: Lungs are clear. No sign of infiltrate or mass. No sign of pleural effusion. No pneumothorax. Bones and soft tissues: No significant findings. IMPRESSION: Negative chest. No acute or specific finding to explain chest pain. Dictated by Marek Jacobs MD @ Jun 06 2020 11:08AM Signed by Dr. Marek Jacobs @ Jun 06 2020 11:10AM
[2020-06-06 11:26] LABS: CORONAVIRUS COVID-19 NAA NEGATIVE (NEGATIVE); INFLUENZA A NAA NEGATIVE (NEGATIVE); INFLUENZA B NAA NEGATIVE (NEGATIVE)
[2020-06-06] MEDS ORDERED: Lactulose Soln 10 GM/15 ML 15 ML UD Cup PO ONE (12:04)
== END 2020-06-06 12:57 | disposition home or self-care (01) ==
LOC: MW.ED 09:50
DX: R53.83 Other fatigue (principal); T50.B95A Adverse effect of other viral vaccines, initial encounter; Z79.899 Other long term (current) drug therapy; J44.9 Chronic obstructive pulmonary disease, unspecified; Z20.822 Contact with and (suspected) exposure to COVID-19; Z87.19 Personal history of other diseases of the digestive system
CPT/HCPCS: 0240U; 36415; 71045; 80053; 82140; 82550; 83605; 83690; 84484; 85025; 93005; 96374; 99285; A9270; J2405; J7030; 93010; 99283

== ENCOUNTER 2020-10-24 21:24 | Emergency (ER) | payer OTHER ==
--- NOTE | 2020-10-24 22:51 | EDM.PDOC ---
ED HPI GENERAL MEDICAL PROBLEM - General Chief Complaint: Skin Complaint Stated Complaint: RASH ON BACK AND LT LEG, HIP AND KNEE PAIN Time Seen by Provider: 10/24/20 22:35 - History of Present Illness INITIAL COMMENTS - FREE TEXT/NARRATIVE: 45-year-old male who is currently working with the [employer] [place] to be listed for liver transplant who is presenting with approximately 36 hours of a rash that started in the lower back just to the left of midline and now extends linearly along the outside of the left hip onto the anterior aspect of the left thigh it is itching and burning he has no fever no other symptoms. Symptoms are constant gradually worsening without exacerbating or alleviating factors radiation or other associated symptoms. back Pain Score (Numeric/FACES): 9 - Related Data Allergies Allergy/AdvReac Type Severity Reaction Status Date / Time No Known Allergies Allergy Verified 10/24/20 22:24 Home Meds: Home Meds Albuterol Sulfate [Proair Hfa] 2 puff INH ASDIRECTED PRN 10/23/17 [History] Budesonide/Formoterol [Symbicort 160-4.5 MCG] 2 puff INH BID 02/17/19 [History] Bumetanide 1 mg PO BID 02/07/20 [History] Folic Acid 1 mg PO DAILY 02/07/20 [History] Lactulose [Cephulac] 20 gm PO TID 02/07/20 [History] Omeprazole 20 mg PO ACBREAKFAST 02/07/20 [History] Prazosin HCl [Prazosin] 1 mg PO BEDTIME 02/07/20 [History] Rifaximin [Xifaxan] 550 mg PO BID 02/07/20 [History] Spironolactone [Aldactone] 100 mg PO DAILY 02/07/20 [History] Thiamine HCl [B-1] 300 mg PO BID 02/07/20 [History] diphenhydrAMINE [Benadryl] 25 mg PO BEDTIME 02/07/20 [History] Acetaminophen 1,000 mg PO Q4H PRN 06/06/20 [History] Furosemide [Lasix] 40 mg PO DAILY 06/06/20 [History] Naltrexone 50 mg PO DAILY 06/06/20 [History] traZODone 50 mg PO BEDTIME PRN 06/06/20 [History] valACYclovir HCl [valACYclovir] 1,000 mg PO TID 7 Days #21 tablet 10/24/20 [Rx] Past Medical History HEENT History: Reports: Other (See Below) Other HEENT History: Oral Bleeding Cardiovascular History: Reports: None Respiratory History: Reports: COPD, Other (See Below) Other Respiratory History: on inhaler Gastrointestinal History: Reports: Cirrhosis, Jaundice Genitourinary History: Reports: None Musculoskeletal History: Reports: Back Pain, Chronic Other Musculoskeletal History: bulging discs per PT. Sciatic issues Neurological History: Reports: None Psychiatric History: Reports: Addiction, PTSD Endocrine/Metabolic History: Reports: None Insulin Pump Model and Air Quality Chemist: None Hematologic History: Reports: None Immunologic History: Reports: None Oncologic (Cancer) History: Reports: None Dermatologic History: Reports: None - Infectious Disease History Infectious Disease History: Reports: Novel Coronavirus, Other (See Below) Other Infectious Disease History: Covid-19 - Past Surgical History Head Surgeries/Procedures: Reports: None HEENT Surgical History: Reports: None Respiratory Surgical History: Reports: None GI Surgical History: Reports: Colostomy Other GI Surgeries/Procedures: hx ulcer. Abd taping removal 5000ml fluid 02/03/2020 Oncologic Surgical History: Reports: None Social & Family History - Family History Family Medical History: No Pertinent Family History - Caffeine Use Caffeine Use: Reports: Soda Caffeine Use Comment: cup of coffee this am - Recreational Drug Use Recreational Drug Use: No ED ROS GENERAL - Review of Systems Review Of Systems: See Below Free Text/Narrative/Comment: General: No fever. Skin: Per HPI ENT: No sore throat. Neck: No neck stiffness. Respiratory: No shortness of breath. Cardiac: No chest pain. Gastrointestinal: No nausea, vomiting or abdominal pain. Musculoskeletal: No myalgias/arthralgias. ED EXAM, SKIN/RASH Exam: See Below Text/Narrative:: General Appearance: No acute distress, appears comfortable Skin: Linear vesicular rash that follows a left lumbar dermatome small 1 mm vesicles on erythematous base consistent with shingles HEENT: Normocephalic/atraumatic, sclera anicteric, mucous membranes moist Neck: Normal range of motion Chest and Lungs: Normal work of breathing Cardiovascular: Intact distal perfusion Musculoskeletal: No edema or tenderness Neurologic: Awake, alert, no obvious deficits, moving all extremities Psychiatric: Appropriate, cooperative Course - Vital Signs Last Recorded V/S: Last Vital Signs Temp 97.3 F 10/24/20 22:25 Pulse 70 10/24/20 23:15 Resp 18 10/24/20 23:15 BP 93/55 L 10/24/20 23:15 Pulse Ox 97 10/24/20 23:15 - Orders/Labs/Meds Meds: Medications Discontinued Medications Generic Name Dose Route Start Last Admin Trade Name Debbi PRN Reason Stop Dose Admin Valacyclovir HCl 1,000 mg 10/24/20 22:51 10/24/20 23:08 Valacyclovir 500 Mg Tab PO 10/24/20 22:52 1,000 mg ONETIME ONE Administration Departure - Departure Time of Disposition: 22:50 Disposition: Home, Self-Care 01 Condition: Good Clinical Impression: Shingles - Discharge Information *PRESCRIPTION DRUG MONITORING PROGRAM REVIEWED*: Not Applicable *COPY OF PRESCRIPTION DRUG MONITORING REPORT IN PATIENT SANA: Not Applicable Prescriptions: valACYclovir HCl [valACYclovir] 1,000 mg PO TID 7 Days #21 tablet Instructions: Shingles, [id number] Referrals: Sadi Sampson DU[employer]ORMAN [Primary Care Provider] - Forms: ED Department Discharge Additional Instructions: Your rash is due to shingles. It should improve with the valacyclovir. This is dosed 3 times daily. You have been given your first dose this evening your next dose is due tomorrow morning. Your prescription can be collected from the pharmacy tomorrow morning. The following information is given to patients seen in the emergency department who are being discharged to home. This information is to outline your options for follow-up care. We provide all patients seen in our emergency department with a follow-up referral. The need for follow-up, as well as the timing and circumstances, are variable depending upon the specifics of your emergency department visit. If you don't have a primary care physician on staff, we will provide you with a referral. We always advise you to contact your personal physician following an emergency department visit to inform them of the circumstance of the visit and for follow-up with them and/or the need for any referrals to a consulting specialist. The emergency department will also refer you to a specialist when appropriate. This referral assures that you have the opportunity for follow-up care with a specialist. All of these measure are taken in an effort to provide you with optimal care, which includes your follow-up. Under all circumstances we always encourage you to contact your private physician who remains a resource for coordinating your care. When calling for follow-up care, please make the office aware that this follow-up is from your recent emergency room visit. If for any reason you are refused follow-up, please contact the [facility] Emergency Department at and asked to speak to the emergency department charge nurse. Sepsis Event Note (ED) - Focused Exam Vital Signs: Vital Signs Temp Pulse Resp BP Pulse Ox 10/24/20 23:15 70 18 93/55 L 97 10/24/20 22:25 97.3 F 79 18 97/59 L 100 - Assessment/Plan Assessment:: 45-year-old immunocompetent male presenting with shingles in the lumbar distribution will treat with valacyclovir. Labs from late September of this year conducted at the [facility] show good kidney function. Return precaution discussed and understood. Nothing suggest deep space infection. Nothing suggest other cellulitis.
[2020-10-24] MEDS: valACYclovir 500 MG Tab PO ONE (23:08)
== END 2020-10-24 23:15 | disposition home or self-care (01) ==
LOC: MW.ED 21:24
DX: B02.9 Zoster without complications (principal); J44.9 Chronic obstructive pulmonary disease, unspecified; Z79.899 Other long term (current) drug therapy; Z86.16 Personal history of COVID-19
CPT/HCPCS: 99282; A9270

== ENCOUNTER 2020-11-21 12:12 | Day surgery (SDC) | payer OTHER ==
[~2020-11-21 12:12] MED LIST: Glycopyrrolate 0.2 MG/ML SDV ONE; Lactated Ringers 1,000 ML IV SCH; Lidocaine 2% 5 ML SDV ONE; Midazolam 1 MG/ML 2 ML SDV ONE; Propofol 200 MG/20 ML SDV ONE
--- NOTE | 2020-11-21 12:29 | PCM.PREANE ---
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 NO ETOH since 01/12) - Physical Assessment NPO Status Date: 11/20/20 NPO Status Time: 23:45 Height: 5 ft 11 in Weight: 86.636 kg ASA Class: 3 Mental Status: Alert & Oriented x3 Airway Class: Mallampati = 2 Dentition: Reports: Normal Dentition Thyro-Mental Finger Breadths: 3 Mouth Opening Finger Breadths: 3 ROM/Head Extension: Full Lungs: Clear to Auscultation, Normal Respiratory Effort - Allergies Allergies/Adverse Reactions: Allergies Allergy/AdvReac Type Severity Reaction Status Date / Time No Known Allergies Allergy Verified 11/15/20 08:13 - Acknowledgements Anesthesia Type Planned: General Anesthesia Pt an Appropriate Candidate for the Planned Anesthesia: Yes Alternatives and Risks of Anesthesia Discussed w Pt/Guardian: Yes Pt/Guardian Understands and Agrees with Anesthesia Plan: Yes PreAnesthesia Questionnaire HEENT History: Reports: Cataract Cardiovascular History: Reports: None Respiratory History: Reports: COPD, Other (See Below) Other Respiratory History: on inhaler Gastrointestinal History: Reports: Cirrhosis, Jaundice, Other (See Below) Other Gastrointestinal History: ascites, hx gastric ulcer Genitourinary History: Reports: None Musculoskeletal History: Reports: Back Pain, Chronic Other Musculoskeletal History: bulging discs per PT. Sciatic issues Neurological History: Reports: None Psychiatric History: Reports: Addiction, PTSD Endocrine/Metabolic History: Reports: None Hematologic History: Reports: Anemia, Blood Transfusion(s) Immunologic History: Reports: None Oncologic (Cancer) History: Reports: None Dermatologic History: Reports: None - Infectious Disease History Infectious Disease History: Reports: Novel Coronavirus, Other (See Below) Other Infectious Disease History: Covid-19 - Past Surgical History Head Surgeries/Procedures: Reports: None HEENT Surgical History: Reports: Cataract Surgery Cardiovascular Surgical History: Reports: None Respiratory Surgical History: Reports: None GI Surgical History: Reports: EGD, Other (See Below) Other GI Surgeries/Procedures: hx ulcer. Abd taping removal 5000ml fluid 02/03/2020 Male Surgical History: Reports: None Endocrine Surgical History: Reports: None Neurological Surgical History: Reports: None Musculoskeletal Surgical History: Reports: None Oncologic Surgical History: Reports: None Dermatological Surgical History: Reports: None - SUBSTANCE USE Tobacco Use Status *Q: Light Tobacco User Tobacco Use Within Last Twelve Months: Cigarettes Date of Last Drink: 12/25/19 - HOME MEDS Home Medications: Home Meds Albuterol Sulfate [Proair Hfa] 2 puff INH ASDIRECTED PRN 10/23/17 [History] Folic Acid 1 mg PO DAILY 02/07/20 [History] Lactulose [Cephulac] 45 ml PO TID 02/07/20 [History] Omeprazole 20 mg PO ACBREAKFAST 02/07/20 [History] Rifaximin [Xifaxan] 550 mg PO BID 02/07/20 [History] Acetaminophen 1,000 mg PO Q4H PRN 06/06/20 [History] Naltrexone 50 mg PO DAILY 06/06/20 [History] traZODone 100 mg PO BEDTIME 06/06/20 [History] Bumetanide 3 tab PO DAILY 11/15/20 [History] Ergocalciferol (Vitamin D2) [Vitamin D2] 50,000 units PO WEEKLY 11/15/20 [History] Ferrous Sulfate 1 tab PO BIDMEALS 11/15/20 [History] Fluticasone Propion/Salmeterol [Wixela 250-50 Inhub] 1 puff INH BID 11/15/20 [History] Gabapentin [Neurontin] 600 mg PO DAILY 11/15/20 [History] Ketorolac [Acular 0.5% Ophth Soln] 1 drop EYERT BID 11/15/20 [History] Lidocaine 1 patch TRDERM ASDIRECTED PRN 11/15/20 [History] Prednisolone Acetate/Pf [Prednisolone Acet 1% Eye Drop] 1 drop EYERT BID 11/15/20 [History] Spironolactone [Aldactone] 2 tab PO BEDTIME 11/15/20 [History] Spironolactone [Aldactone] 3 tab PO WITHBREAKFAST 11/15/20 [History] polyethylene glycoL 3350 [Polyethylene Glycol 3350] 1 dose PO ASDIRECTED PRN 11/15/20 [History] - CURRENT (IN HOUSE) MEDS Current Meds: Current Medications Lactated Ringer's (Ringers, Lactated) 1,000 mls @ 125 mls/hr IV ASDIRECTED JANA Discontinued Medications Glycopyrrolate (Glycopyrrolate 0.2 Mg/Ml Sdv) Confirm Administered Dose 0.2 mg .ROUTE .STK-MED ONE Stop: 11/21/20 07:29 Lidocaine (Lidocaine 2% 5 Ml Sdv) Confirm Administered Dose 5 ml .ROUTE .STK-MED ONE Stop: 11/21/20 07:29 Midazolam HCl (Midazolam 1 Mg/Ml 2 Ml Sdv) Confirm Administered Dose 2 mg .ROUTE .STK-MED ONE Stop: 11/21/20 07:29 Propofol (Propofol 200 Mg/20 Ml Sdv) Confirm Administered Dose 200 mg .ROUTE .STK-MED ONE Stop: 11/21/20 07:29
[2020-11-21] MEDS ORDERED: Propofol 200 MG/20 ML SDV ONE (13:11)
[2020-11-21] MEDS ORDERED: Lidocaine 2% 5 ML SDV ONE (13:11)
[2020-11-21] MEDS ORDERED: Etomidate 2 MG/ML 20 ML SDV IVPUSH ONE (13:20)
--- NOTE | 2020-11-21 15:15 | PCM.POSTAN ---
POST ANESTHESIA ASSESSMENT - MENTAL STATUS Mental Status: Alert, Oriented - VITAL SIGNS Vital Signs: Last Vital Signs Temp 96.8 F L 11/21/20 12:15 Pulse 81 11/21/20 15:13 Resp 12 11/21/20 15:13 BP 105/72 11/21/20 15:13 Pulse Ox 98 11/21/20 15:13 - RESPIRATORY Respiratory Status: Respiratory Rate WNL, Airway Patent, O2 Saturation Stable - CARDIOVASCULAR CV Status: Pulse Rate WNL, Blood Pressure Stable - GASTROINTESTINAL GI Status: No Symptoms - PAIN Pain Score: 0 - POST OP HYDRATION Hydration Status: Adequate & Stable
--- NOTE | 2020-11-21 15:17 | PCM48HPAN ---
Post Anesthesia Note - EVALUATION WITHIN 48HRS OF ANESTHETIC Vital Signs in Normal Range: Yes Patient Participated in Evaluation: Yes Respiratory Function Stable: Yes Airway Patent: Yes Cardiovascular Function Stable: Yes Hydration Status Stable: Yes Pain Control Satisfactory: Yes Nausea and Vomiting Control Satisfactory: Yes Mental Status Recovered: Yes Vital Signs: Last Vital Signs Temp 96.8 F L 11/21/20 12:15 Pulse 81 11/21/20 15:13 Resp 12 11/21/20 15:13 BP 105/72 11/21/20 15:13 Pulse Ox 98 11/21/20 15:13 - COMMENTS/OBSERVATIONS Free Text/Narrative:: Pt doing well post-op. VSS. No apparent anesthetic complications. Dr. Audie Lora
--- NOTE | 2020-11-21 15:20 | PCM.OPNOTE ---
- General Post-Op/Procedure Note Date of Surgery/Procedure: 11/21/20 Operative Procedure(s): EGD with biposies Findings: Gastritis Mosaic-like pattern dictation number [id number] Pre Op Diagnosis: History of stomach ulcer Post-Op Diagnosis: Gastritis. Mosaic-like pattern Anesthesia Technique: MAC Primary Surgeon: Jesus Alberto Kang Pathology: EGD biopsy Complications: None Condition: Good
--- NOTE | 2020-11-23 07:45 | OR ---
SURGEON: LUCIANO GERMAIN MD DATE OF PROCEDURE: 11/13/2020 PREOPERATIVE DIAGNOSES: 1. History of stomach ulcers. 2. Occasional pain with swallowing. POSTOPERATIVE DIAGNOSIS: Gastritis with a mosaic-like pattern. PROCEDURE PERFORMED: Esophagogastroduodenoscopy with biopsy. PRIMARY SURGEON: Luciano Germain MD ANESTHESIA: With Anesthesia. EXTENT OF COLONOSCOPY: To the duodenum. REASON FOR PROCEDURE: The patient is a pleasant 45-year-old gentleman who, about 4 months ago, would get some pain when he swallows. He says with any type of food it will happen, it even happened with water. It happens about 4 times a week. He said the pain will come on when he swallows but only lasts for a couple of seconds. The pain will not recur that day. He does have a history of stomach ulcers in the past that needed to be clipped. He says last EGD was in May of this year, which he says was normal. He does take omeprazole daily. Of note, he says he has liver failure and is trying to get on the transplant list. He did quit all alcohol use on January 12, 2020. PROCEDURE IN DETAIL: Physical examination was performed, and the major risks and benefits associated with the procedure were explained to the patient in detail. The patient verbalized understanding of the same. The patient was then connected to the appropriate monitoring device and IV started. EKG, pulse, pulse oximetry, blood pressure, and capnography were monitored throughout the entire procedure. Continuous oxygen and sedation were provided by the anesthesiologist. After sedation was begun, an upper endoscope was advanced under direct visualization without any difficulty in the upper GI tract. The anatomy and mucosa of the esophagus, GE junction, stomach, pylorus, and duodenum were inspected. The duodenum appeared normal. The scope was withdrawn. Both retro and antegrade views of the stomach were done. I did have what looked to be gastritis and even a mosaic-like pattern, which would be consistent with his history of hepatic failure. I did do biopsy of the antrum and pylorus area to check for H pylori. The scope was brought up to the GE junction. The GE junction had a good Z-line with a good squamocolumnar junction. I did not see any varices, even though the patient reported a history of them in the past. The scope was brought back into the stomach. The stomach was de-insufflated. The scope was brought up through the esophagus. The esophagus was normal. The scope was completely removed, and the procedure was terminated. ENDOSCOPIC DIAGNOSIS: Gastritis and this mosaic-like pattern. RECOMMENDATION: The patient will follow up in the clinic to go over his pathology. OSCAR / RAJWINDER /[id number]
== END 2020-11-21 15:40 | disposition home or self-care (01) ==
LOC: MW.SDS 12:12
PROVIDERS: ATTEND Surgery
DX: K29.70 Gastritis, unspecified, without bleeding (principal); R13.10 Dysphagia, unspecified; F17.210 Nicotine dependence, cigarettes, uncomplicated; Z79.899 Other long term (current) drug therapy; Z86.16 Personal history of COVID-19
CPT/HCPCS: 43239; 88305; 88342; J2704; J3490; J7120; 00731; J2250

== ENCOUNTER 2021-05-22 15:02 | Emergency (ER) | payer OTHER ==
[2021-05-22] MEDS ORDERED: Sodium Chloride 0.9% 2.5 ML Syringe FLUSH PRN (15:43)
[2021-05-22] MEDS ORDERED: Sodium Chloride 0.9% 10 ML Syringe FLUSH PRN (15:43)
[2021-05-22 16:35] LABS: CARBON DIOXIDE,CO2 25.3 mmol/L (21.0-32.0); POTASSIUM,K 3.5 mmol/L (3.5-5.1)
[2021-05-22] MEDS ORDERED: Lactulose Soln 10 GM/15 ML 15 ML UD Cup PO ONE ×2 (16:50→16:51)
[2021-05-22] MEDS ORDERED: Cefuroxime 250 MG Tab PO ONE (19:29)
[2021-05-22] MEDS ORDERED: Sodium Chloride 0.9% 1,000 ML IV ONE (20:04)
== END 2021-05-22 21:18 | disposition home or self-care (01) ==
LOC: MW.ED 15:02
DX: J18.9 Pneumonia, unspecified organism (principal); K74.60 Unspecified cirrhosis of liver; J44.9 Chronic obstructive pulmonary disease, unspecified; Z79.899 Other long term (current) drug therapy; Z86.16 Personal history of COVID-19; Z72.0 Tobacco use
CPT/HCPCS: 36415; 70450; 71045; 80053; 81003; 82140; 85025; 85610; 99285; A9270; J7030; 99284

== ENCOUNTER 2021-07-06 15:16 | Emergency (ER) | payer OTHER ==
[2021-07-06] MEDS ORDERED: Sodium Chloride 0.9% 10 ML Syringe FLUSH PRN (15:26)
[2021-07-06] MEDS ORDERED: Sodium Chloride 0.9% 2.5 ML Syringe FLUSH PRN (15:26)
[2021-07-06] MEDS ORDERED: Aspirin 81 MG Tab.Chew PO ONE (15:26)
[2021-07-06] MEDS ORDERED: Sodium Chloride 0.9% 1,000 ML IV ONE (15:29)
[2021-07-06 16:06] LABS: BLOOD UREA NITROGEN,BUN 13 mg/dL (7.0-18.0); CARBON DIOXIDE,CO2 22.8 mmol/L (21.0-32.0); CHLORIDE,CL 101 mmol/L (98-107); GLUCOSE RANDOM 131 mg/dL (74-106); POTASSIUM,K 3.8 mmol/L (3.5-5.1); SODIUM,NA 136 mmol/L (136-148)
[2021-07-06 16:35] LABS: CORONAVIRUS COVID-19 NAA NEGATIVE (NEGATIVE); INFLUENZA A NAA NEGATIVE (NEGATIVE); INFLUENZA B NAA NEGATIVE (NEGATIVE)
[2021-07-06] MEDS ORDERED: Iopamidol 755 MG/ML 500 ML Multipack Bottle IVPUSH ONE (17:15)
== END 2021-07-06 18:33 | disposition home or self-care (01) ==
LOC: MW.ED 15:16
DX: R07.89 Other chest pain (principal); R10.12 Left upper quadrant pain; J44.9 Chronic obstructive pulmonary disease, unspecified; Z86.16 Personal history of COVID-19; Z20.822 Contact with and (suspected) exposure to COVID-19; Z79.899 Other long term (current) drug therapy
CPT/HCPCS: 0240U; 36415; 71045; 71045-26; 74177; 74177-26; 80053; 81003; 83690; 84443; 84484; 85025; 93005; 93010; 96360; 99284; 99285-25; A9270-GY; J3490; J7030; Q9967

== ENCOUNTER 2022-03-08 17:00 | Emergency (ER) | payer OTHER ==
[2022-03-08] MEDS ORDERED: Bacitracin Oint 1 GM U/D Packet TOP ONE (18:42)
== END 2022-03-08 19:46 | disposition home or self-care (01) ==
LOC: MW.ED 17:00
DX: S01.00XA Unspecified open wound of scalp, initial encounter (principal); J44.9 Chronic obstructive pulmonary disease, unspecified; Z79.899 Other long term (current) drug therapy; Z86.16 Personal history of COVID-19; W01.198A Fall on same level from slipping, tripping and stumbling with subsequent striking against other object, initial encounter
CPT/HCPCS: 99283

== ENCOUNTER 2023-07-01 18:50 | Emergency (ER) | payer OTHER ==
[2023-07-01] MEDS: Albuterol/Ipratropium 3.0-0.5 MG/3 ML Neb Soln NEB STA (19:17)
[2023-07-01 20:18] LABS: APPEARANCE,URINE CLEAR; BILIRUBIN,URINE NEGATIVE (NEGATIVE); COLOR,URINE YELLOW; GLUCOSE,URINE NEGATIVE (NEGATIVE); KETONES,URINE NEGATIVE (NEGATIVE); LEUKOCYTE ESTERASE,URINE NEGATIVE (NEGATIVE); NITRITE,URINE NEGATIVE (NEGATIVE); OCCULT BLOOD,URINE NEGATIVE (NEGATIVE); PH,URINE 6.5 (5.0-8.0); PROTEIN,URINE NEGATIVE (NEGATIVE)
[2023-07-01 20:30] LABS: BASOPHILS ABSOLUTE AUTO 0.04 K/uL (0.00-0.20); BASOPHILS PERCENT AUTO 0.7 % (0.0-1.0); EOSINOPHILS ABSOLUTE AUTO 0.21 K/uL (0.00-0.45); EOSINOPHILS PERCENT AUTO 3.8 % (0.0-6.0); HEMOGLOBIN 13.7 g/dL (14.0-18.0); IMMATURE GRAN ABSOLUTE AUTO 0.01 K/uL (0.00-0.05); IMMATURE GRAN PERCENT AUTO 0.2 % (0.0-0.4); LYMPHOCYTES ABSOLUTE AUTO 1.38 K/uL (1.00-4.80); LYMPHOCYTES PERCENT AUTO 24.7 % (24.0-44.0); MEAN CORPUSCULAR HEMOGLOBIN 29.2 pg (28.0-32.0); MEAN CORPUSCULAR HGB CONC 34.3 g/dL (32.0-36.0); MEAN CORPUSCULAR VOLUME 85.3 fL (83.0-99.0); MEAN PLATELET VOLUME 9.7 fL (9.4-12.4); MONOCYTES ABSOLUTE AUTO 0.48 K/uL (0.00-0.80); MONOCYTES PERCENT AUTO 8.6 % (0.0-8.0); NEUTROPHILS ABSOLUTE AUTO 3.47 K/uL (1.80-7.70); PLATELET COUNT,PLT 65 K/uL (150-400); RED BLOOD CELL COUNT 4.69 M/uL (4.52-5.90); WHITE BLOOD CELL COUNT,WBC 5.59 K/uL (3.9-11.3)
[2023-07-01 20:50] LABS: INR 1.18 (0.86-1.11); PTT,PARTIAL THROMBOPLSTIN TIME 28.8 SEC (23.9-30.7)
[2023-07-01 21:16] LABS: A/G RATIO 0.9 (0.9-1.6); ALBUMIN 3.2 g/dL (3.4-5.0); BILIRUBIN TOTAL 0.9 mg/dL (0.2-1.0); CALCIUM 8.3 mg/dL (8.5-10.1); CARBON DIOXIDE,CO2 26.6 mmol/L (21.0-32.0); CREATININE 0.9 mg/dL (0.8-1.3); EST CRCL DRUG DOSING (CG) 106.91 mL/min; POTASSIUM,K 3.7 mmol/L (3.5-5.1); PROTEIN TOTAL,TP 6.8 g/dL (6.4-8.2)
[2023-07-01 21:25] LABS: MAGNESIUM 1.8 mg/dL (1.8-2.4)
[2023-07-01] MEDS: methylPREDNISolone Sodium Succinate 125 MG/2 ML SDV IVPUSH STA (21:40)
== END 2023-07-01 22:00 | disposition home or self-care (01) ==
LOC: MW.ED 18:50
DX: K70.31 Alcoholic cirrhosis of liver with ascites (principal); R06.00 Dyspnea, unspecified; J44.9 Chronic obstructive pulmonary disease, unspecified; Z79.899 Other long term (current) drug therapy; Z79.51 Long term (current) use of inhaled steroids; Z86.16 Personal history of COVID-19; Z75.8 Other problems related to medical facilities and other health care
CPT/HCPCS: 36415; 71046; 76705; 80053; 81003; 83690; 83735; 83880; 84484; 85025; 85610; 85730; 96374; 99285; J2930; 93005; 93010; 99284; J7620-GY